=== PATIENT | female | born 1950 | race Caucasian/White ===

== ENCOUNTER 2018-01-03 20:45 | Inpatient (IN) ==
--- OUTSIDE RECORDS SUMMARY | 2018-01-03 21:04 | External Medical Summary ---
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
--- OUTSIDE RECORDS SUMMARY | 2018-01-03 21:04 | External Medical Summary ---
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 Problem Depressive F32.9 Active 97193058 disorder, not elsewhere classified Problem Essential I10 Active 12341795 hypertension, hypertension with unspecified goal ALLERGIES No Known Allergies SOCIAL HISTORY No smoking Hx information available PLAN OF CARE VITAL SIGNS MEDICATIONS Medication Instructions Dosage Frequency Start End Duration Status Date Date Naproxen 500 TAKE 1 30 Active TABLET BY MOUTH EVERY 12 HOURS Methotrexate 2.5 TAKE 6 35 Active TABLETS BY MOUTH EVERY WEEK ON THE SAME DAY Zoloft 50 MG Orally Once a 1/2 tabelt 24h 30 Active day x 6 days, then 1 tablet daily Pantoprazole as directed Active Sodium Hydrocodone-Acet Orally every 6 1 tablet as 6h Jan, as Active aminophen hrs needed 2015 needed 7.5-325 MG Lorazepam 1 MG ORAL Q 6 HRS 1 tablet Sep, as Active 2009 needed Gabapentin 600 TAKE 1 30 Active TABLET BY MOUTH THREE TIMES DAILY RESULTS No Results PROCEDURES No Known procedures IMMUNIZATIONS No Known Immunizations
--- OUTSIDE RECORDS SUMMARY | 2018-01-03 21:04 | External Medical Summary | Referral Summary ---
:1950 Author Organization [facility] Address [address] [place] [address] Care Team Providers Name Role Phone [place], Librado Humphrey Primary Care Physician Encounter VC Date(s): 11/07/16 - 11/10/16 [facility] [address] [place] [address] [place] Discharge Disposition: 62-Inpatient Rehab Facility Attending Physician: Claude Mott MD Admitting Physician: Claude Mott MD Vital Signs Most recent to oldest [Reference Range]: 1 Temperature Oral [35.8-37.3 degC] 36.7 degC (11/10/16 9:00 AM) Temperature Temporal Artery [36.3-37.8 degC] 36.5 degC (11/07/16 2:45 PM) Peripheral Pulse Rate [60-100 bpm] 90 bpm (11/10/16 9:00 AM) Heart Rate Monitored [60-100 bpm] 99 bpm (11/08/16 3:00 AM) Respiratory Rate [14-20 br/min] 16 br/min (11/10/16 9:00 AM) Blood Pressure [90-140/60-90 mmHg] 132/73 mmHg (11/10/16 9:00 AM) Mean Arterial Pressure, Cuff 114 mmHg (11/10/16 3:17 AM) SpO2 95 % (11/10/16 9:00 AM) Problem List Condition Effective Dates Status Health Status Informant Acute pain(Confirmed) Active At risk for activity Active intolerance(Confirmed)1 At risk of pressure sore(Confirmed) Active Impaired skin integrity(Confirmed)2 Active 1Problem added automatically by system based on initiation of At Risk for Activity Intolerance Plan of [id number] added automatically by system based on initiation of Impaired Skin Integrity Plan of Care Allergies, Adverse Reactions, Alerts Substance Reaction Severity Status clindamycin Eczema (rash) Active tetracycline Eczema (rash) Active Medications aspirin 81 mg oral tablet 81 mg 1 tabs, Oral, Daily Start Date: 11/07/16 Status: Orderedcalcium carbonate 500 mg (200 mg elemental calcium) oral tablet, chewable 1,000 mg 2 tabs, Chewed, Bedtime (once a day), as needed for dyspepsia, # 12 tabs, 0 Refill(s) Start Date: 11/07/16 Status: OrderedCentrum Ultra Women's oral tablet 1 tabs, Oral, Daily, 0 Refill(s) Start Date: 11/07/16 Status: Ordereddocusate sodium 100 mg oral capsule 100 mg 1 caps, Oral, BID, 0 Refill(s) Start Date: 11/10/16 Status: OrderedDULoxetine 30 mg oral delayed release capsule 30 mg 1 caps, Oral, Daily Start Date: 11/07/16 Status: Orderedgabapentin 600 mg, Oral, TID, 0 Refill(s) Start Date: 06/19/16 Status: OrderedMilk of Magnesia 2,400 mg 30 mL, Oral, Daily, Constipation, 0 Refill(s) Start Date: 11/10/16 Status: OrderedNorco 5 mg-325 mg oral tablet 1 tabs, Oral, q4hr, Pain Moderate (4-6), not to exceed 8 tablets/24 hours; give with food to preventnausea, # 30 tabs, 0 Refill(s) Start Date: 11/10/16 Stop Date: 12/11/16 Status: Orderedoxybutynin 5 mg oral tablet 5 mg 1 tabs, Oral, BID Start Date: 11/07/16 Status: Orderedpantoprazole 40 mg, Oral, Daily, 0 Refill(s) Start Date: 06/19/16 Status: Orderedsertraline 50 mg oral tablet 25 mg 0.5 tabs, Oral, Daily, 0 Refill(s) Start Date: 06/19/16 Status: OrderedXarelto 10 mg oral tablet 10 mg 1 tabs, Oral, Daily, give daily at 9:00 AM for 20 days post hospital discharge for DVT prevention, 0 Refill(s) Start Date: 5/30/17 Status: Ordered Results Hematology Most recent to oldest [Reference Range]: 1 WBC [4.8-10.8 10*3/uL] 12.1 10*3/uL *HI* (11/08/16 7:37 AM) RBC [4.00-5.20] 3.14 *LOW* (11/08/16 7:37 AM) Hgb [12.0-16.0 gm/dL] 9.7 gm/dL *LOW* (11/08/16 7:37 AM) Hct [37.0-47.0 %] 30.7 % *LOW* (11/08/16 7:37 AM) MCV [82.0-99.0 fL] 97.8 fL (11/08/16 7:37 AM) MCH [27.0-32.0 pg] 30.9 pg (11/08/16 7:37 AM) MCHC [32.0-36.0 gm/dL] 31.6 gm/dL *LOW* (11/08/16 7:37 AM) RDW [11.5-14.5 %] 16.5 % *HI* (11/08/16 7:37 AM) Platelet [150-400 10*3/uL] 202 10*3/uL (11/08/16 7:37 AM) MPV [9.4-12.4 fL] 9.8 fL (11/08/16 7:37 AM) Immature Granulocytes [0.0-1.0 %] 0.2 % (11/07/16 2:44 AM) Neutrophils [51-75 %] 81 % *HI* (11/07/16 2:44 AM) Lymphocytes [20-46 %] 11 % *LOW* (11/07/16 2:44 AM) Monocytes [4-11 %] 6 % (11/07/16 2:44 AM) Eosinophils [0-4 %] 2 % (11/07/16 2:44 AM) Basophils [0-2 %] 0 % (11/07/16 2:44 AM) Neutro Absolute [1.90-7.00] 8.03 *HI* (11/07/16 2:44 AM) Lymph Absolute [0.80-3.30] 1.10 (11/07/16 2:44 AM) Starke Absolute [0.30-1.00] 0.60 (11/07/16 2:44 AM) Eos Absolute [0.00-0.50] 0.18 (11/07/16 2:44 AM) Baso Absolute [0.00-0.20] 0.03 (11/07/16 2:44 AM) Nucleated RBC Automated [0 /100 WBC] 0.0 /100 WBC (11/07/16 2:44 AM) Coagulation Most recent to oldest [Reference Range]: 1 INR [0.9-1.2] 1.2 (11/07/16 2:44 AM) Chemistry Most recent to oldest [Reference Range]: 1 Sodium Lvl [136-144 mEq/L] 141 mEq/L (11/08/16 7:37 AM) Potassium Lvl [3.6-5.1 mEq/L] 4.2 mEq/L (11/08/16 7:37 AM) Chloride [99-109 mEq/L] 108 mEq/L (11/08/16 7:37 AM) CO2 [22-32 mEq/L] 25 mEq/L (11/08/16 7:37 AM) AGAP [3-20 mEq/L] 8 mEq/L (11/08/16 7:37 AM) BUN [4-20 mg/dL] 15 mg/dL (11/08/16 7:37 AM) Glucose Lvl [70-100 mg/dL] 165 mg/dL *HI* (11/08/16 7:37 AM) Creatinine Lvl [0.44-1.03 mg/dL] 0.89 mg/dL (11/08/16 7:37 AM) eGFR [>60 mL/min] >60 mL/min 1 (11/08/16 7:37 AM) Calcium Lvl [8.6-10.0 mg/dL] 8.5 mg/dL *LOW* (11/08/16 7:37 AM) Blood Glucose, Capillary [74-106 mg/dL] 107 mg/dL *HI* (11/07/16 11:18 AM) 1Result Comment: Multiply eGFR results by 1.21 for race.Urinalysis Most recent to oldest [Reference Range]: 1 UA Color Yellow (11/07/16 4:12 AM) UA Appear Sl Cloudy (11/07/16 4:12 AM) UA pH [5.0-8.0] 6.0 (11/07/16 4:12 AM) UA Leuk Est [Negative] Pos 1+ *ABN* (11/07/16 4:12 AM) UA Nitrite [Negative] Positive *ABN* (11/07/16 4:12 AM) UA Protein [Negative] Negative (11/07/16 4:12 AM) UA Glucose [Negative] Negative (11/07/16 4:12 AM) UA Ketones [Negative] Negative (11/07/16 4:12 AM) UA Urobilinogen [<1.0] Negative (11/07/16 4:12 AM) UA Bili [Negative] Negative (11/07/16 4:12 AM) UA Blood [Negative] Negative (11/07/16 4:12 AM) UA Spec Grav [1.003-1.030] 1.010 (11/07/16 4:12 AM) Type Clean Catch (11/07/16 4:12 AM) UA WBC [0-4] 20-50 *ABN* (11/07/16 4:12 AM) UA RBC [0-2] 0-2 (11/07/16 4:12 AM) Epithelial Cells None Seen (11/07/16 4:12 AM) UA Bacteria Occasional *ABN* (11/07/16 4:12 AM) UA Mucous Present (11/07/16 4:12 AM) Microbiology Reports TEST:Urine Culture STATUS:Auth (Verified) BODY SITE: SOURCE:Urine COLLECTED DATE/TIME:11/07/16 4:12 AMUrine Culture- - - - - - - Positive urine culture (even if >100,000 cfu/ml) without presence of symptoms does not require antibiotic treatment unless the patient is or undergoing urinary surgery. Please document as bacteriuria. Klebsiella oxytoca >100,000 cfu/ml ORGANISM:Klebsiella oxytoca Immunizations Given and Recorded Vaccine Date Status Refusal Reason influenza virus vaccine, live 04/29/13 Given Not Given Vaccine Date Status Refusal Reason influenza virus vaccine, inactivated 06/20/16 Not Given Patient Refuses Procedures Procedure Date Related Diagnosis Body Site Open Reduction Internal Fixation Tibia Proximal 11/07/16 (Left)1 1auto-populated from documented surgical case Social History Social History Type Response Smoking Status Former smoker Assessment and Plan No data available for this section
--- OUTSIDE RECORDS SUMMARY | 2018-01-03 21:04 | External Medical Summary | Referral Summary ---
:1950 Author Organization [facility] Address [address] [place] [address] Care Team Providers Name Role Phone Librado Baez Milagro Primary Care Physician Encounter VC Date(s): 11/25/16 - 11/25/16 [facility] [address], [place] [address] Discharge Disposition: 01-Home or Self Care Attending Physician: Roxanne Isaac DO Vital Signs No data available for this section Problem List Condition Effective Dates Status Health Status Informant Acute pain(Confirmed) Active At risk for activity Active intolerance(Confirmed)1 At risk of pressure sore(Confirmed) Active Impaired skin integrity(Confirmed)2 Active 1Problem added automatically by system based on initiation of At Risk for Activity Intolerance Plan of [id number] added automatically by system based on initiation [...] for DVT prevention, 0 Refill(s) Start Date: 11/10/16 Status: Ordered Results No data available for this section Immunizations Given and Recorded Vaccine Date Status [...]
--- OUTSIDE RECORDS SUMMARY | 2018-01-03 21:04 | External Medical Summary ---
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
--- OUTSIDE RECORDS SUMMARY | 2018-01-03 21:04 | External Medical Summary ---
:[address] 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
--- OUTSIDE RECORDS SUMMARY | 2018-01-03 21:04 | External Medical Summary | Referral Summary ---
:1950 Author Organization [facility] Address [address] [place] [address] Care Team Providers Name Role Phone [place], Librado Humphrey Primary Care Physician Encounter VC Date(s): 12/17/16 - 12/21/16 [facility] [address] [place] [address] [phone] Discharge Disposition: 01-Home or Self Care Attending Physician: Chip Decker MD Admitting Physician: Chip Decker MD Vital Signs Most recent to oldest [Reference Range]: 1 Temperature Axillary [35.2-36.7 degC] 36.5 degC (12/18/16 10:29 PM) Temperature Oral [35.8-37.3 degC] 37 degC (12/21/16 7:00 AM) Temperature Rectal [36.3-37.8 degC] 38.0 degC *HI* (12/17/16 9:10 AM) Peripheral Pulse Rate [60-100 bpm] 80 bpm (12/21/16 7:00 AM) Heart Rate Monitored [60-100 bpm] 83 bpm (12/20/16 3:00 PM) Respiratory Rate [14-20 br/min] 16 br/min (12/21/16 7:00 AM) Blood Pressure [90-140/60-90 mmHg] 137/75 mmHg (12/21/16 7:00 AM) Mean Arterial Pressure, Cuff 88 mmHg (12/18/16 8:57 AM) Mean Arterial Pressure, Invasive 2 123 mmHg (12/20/16 8:00 AM) SpO2 94 % (12/21/16 7:00 AM) Problem List Condition Effective Dates Status Health Status Informant Acute pain(Confirmed) Active At risk for activity Active intolerance(Confirmed)1 At risk for injury(Confirmed)2 Active At risk of pressure sore(Confirmed) Active Depression(Confirmed) Active patient GERD (gastroesophageal reflux Active patient disease)(Confirmed) Impaired skin integrity(Confirmed)3 Active Knowledge deficit(Confirmed)4 Active RA (rheumatoid arthritis)(Confirmed) Active patient Self -care deficit(Confirmed)5 Active 1Problem added automatically by system based on initiation of At Risk for Activity Intolerance Plan of [id number] added automatically by system based on initiation of Risk for Injury Plan of [id number] added automatically by system based on initiation of Impaired Skin Integrity Plan of [id number] added automatically by system based on initiation of Knowledge Deficit Plan of [id number] added automatically by system based on initiation of Self Care Deficit Plan of Care Allergies, Adverse Reactions, Alerts Substance Reaction Severity Status clindamycin Eczema (rash) Active tetracycline Eczema (rash) Active Medications aspirin 81 mg oral tablet 81 mg 1 tabs, Oral, qAM Start Date: 11/07/16 Status: Orderedcalcium carbonate 500 mg (200 mg elemental calcium) oral tablet, chewable 1,000 mg 2 tabs, Chewed, Bedtime (once a day), as needed for dyspepsia, # 12 tabs, 0 Refill(s) Start Date: 11/07/16 Status: Orderedcefpodoxime 100 mg oral tablet 100 mg 1 tabs, Oral, q12hr, X 14 days, # 28 tabs, 0 Refill(s), Pharmacy: [id number],1 tabs Oral q12hr,x14 days Start Date: 12/19/16 Stop Date: 01/02/17 Status: OrderedCentrum Ultra Women's oral tablet 1 tabs, Oral, Daily, 0 Refill(s) Start Date: 11/07/16 Status: Orderedcompleted med - cephalexin 500mg completed med - cephalexin 500mg, See Instructions, TID for 7 days beginning , 0 Refill(s) Start Date: 12/17/16 Status: OrderedDULoxetine 60 mg oral delayed release capsule 60 mg 1 caps, Oral, Daily, 0 Refill(s) Start Date: 12/17/16 Status: Orderedgabapentin 600 mg, Oral, TID, 0 Refill(s) Start Date: 06/19/16 Status: OrderedHYDROcodone-acetaminophen 7.5 mg-325 mg oral tablet range dose 1 tabs, Oral, q6hr, as needed for pain, 0 Refill(s) Start Date: 12/17/16 Status: Orderedlisinopril 10 mg oral tablet 10 mg 1 tabs, Oral, Daily, # 30 tabs, 0 Refill(s), Pharmacy: [facility] [id number], 1 tabs OralDaily Start Date: 12/21/16 Status: OrderedMilk of Magnesia 2,400 mg 30 mL, Oral, Daily, Constipation, 0 Refill(s) Start Date: 11/10/16 Status: OrderedOTC Osteo-Denx supplement OTC Osteo-Denx supplement, See Instructions, one by mouth daily, 0 Refill(s) Start Date: 12/17/16 Status: Orderedoxybutynin 5 mg oral tablet 5 mg 1 tabs, Oral, TID Start Date: 11/07/16 Status: Orderedpantoprazole 40 mg, Oral, Daily, 0 Refill(s) Start Date: 06/19/16 Status: OrderedProbiotic Formula 1 caps, Oral, Daily, 0 Refill(s) Start Date: 12/17/16 Status: Orderedsertraline 50 mg oral tablet 25 mg 0.5 tabs, Oral, Daily, 0 Refill(s) Start Date: 06/19/16 Status: Ordered Results Hematology Most recent to oldest [Reference Range]: 1 WBC [4.8-10.8 10*3/uL] 9.8 10*3/uL (12/18/16 5:34 AM) RBC [4.00-5.20] 3.50 *LOW* (12/18/16 5:34 AM) Hgb [12.0-16.0 gm/dL] 10.2 gm/dL *LOW* (12/18/16 5:34 AM) Hct [37.0-47.0 %] 32.5 % *LOW* (12/18/16 5:34 AM) MCV [82.0-99.0 fL] 92.9 fL (12/18/16 5:34 AM) MCH [27.0-32.0 pg] 29.1 pg (12/18/16 5:34 AM) MCHC [32.0-36.0 gm/dL] 31.4 gm/dL *LOW* (12/18/16 5:34 AM) RDW [11.5-14.5 %] 15.7 % *HI* (12/18/16 5:34 AM) Platelet [150-400 10*3/uL] 342 10*3/uL (12/18/16 5:34 AM) MPV [9.4-12.4 fL] 9.6 fL (12/18/16 5:34 AM) Immature Granulocytes [0.0-1.0 %] 0.3 % (12/18/16 5:34 AM) Neutrophils [51-75 %] 69 % (12/18/16 5:34 AM) Lymphocytes [20-46 %] 19 % *LOW* (12/18/16:34 AM) Monocytes [4-11 %] 11 % (12/18/16 5:34 AM) Eosinophils [0-4 %] 1 % (12/18/16:34 AM) Basophils [0-2 %] 0 % (12/18/16:34 AM) Neutro Absolute [1.90-7.00] 6.80 (12/18/16 5:34 AM) Lymph Absolute [0.80-3.30] 1.84 (12/18/16 5:34 AM) Crosby Absolute [0.30-1.00] 1.05 *HI* (12/18/16 5:34 AM) Eos Absolute [0.00-0.50] 0.09 (12/18/16 5:34 AM) Baso Absolute [0.00-0.20] 0.02 (12/18/16 5:34 AM) Nucleated RBC Automated [0 /100 WBC] 0.0 /100 WBC (12/18/16 5:34 AM) Coagulation Most recent to oldest [Reference Range]: 1 INR [0.9-1.2] 1.4 *HI* (12/17/16 8:56 AM) PTT [25.0-35.0 seconds] 29.5 seconds (12/17/16 8:56 AM) Chemistry Most recent to oldest [Reference Range]: 1 Sodium Lvl [136-144 mEq/L] 139 mEq/L (12/18/16 5:34 AM) Potassium Lvl [3.6-5.1 mEq/L] 3.1 mEq/L *LOW* (12/18/16 5:34 AM) Chloride [99-109 mEq/L] 108 mEq/L (12/18/16 5:34 AM) CO2 [22-32 mEq/L] 24 mEq/L (12/18/16 5:34 AM) AGAP [3-20 mEq/L] 7 mEq/L (12/18/16 5:34 AM) BUN [4-20 mg/dL] 10 mg/dL (12/18/16 5:34 AM) Glucose Lvl [70-100 mg/dL] 111 mg/dL *HI* (12/18/16 5:34 AM) Creatinine Lvl [0.44-1.03 mg/dL] 0.69 mg/dL (12/18/16 5:34 AM) eGFR [>60 mL/min] >60 mL/min 1 (12/18/16 5:34 AM) Calcium Lvl [8.6-10.0 mg/dL] 8.1 mg/dL *LOW* (12/18/16 5:34 AM) Albumin Lvl [3.5-4.8 gm/dL] 2.9 gm/dL *LOW* (12/17/16 8:56 AM) Total Protein [6.1-7.9 gm/dL] 8.0 gm/dL *HI* (12/17/16 8:56 AM) Globulin [1.9-4.3 gm/dL] 5.1 gm/dL *HI* (12/17/16 8:56 AM) ALT [14-54 U/L] 14 U/L (12/17/16 8:56 AM) AST [15-41 U/L] 25 U/L (12/17/16 8:56 AM) Alk Phos [26-104 U/L] 121 U/L *HI* (12/17/16 8:56 AM) Bili Total [0.2-1.2 mg/dL] 1.2 mg/dL 2 (12/17/16 8:56 AM) Magnesium Lvl [1.8-2.5 mg/dL] 2.1 mg/dL (12/17/16 8:56 AM) Troponin [<0.06 ng/mL] <0.05 ng/mL (12/17/16 8:56 AM) Sodium Venous [136-144 mEq/L] 138 mEq/L (12/17/16 8:50 AM) Potassium Venous [3.6-5.1 mEq/L] 3.3 mEq/L 3 *LOW* (12/17/16 8:50 AM) Calcium Ionized Venous [1.19-1.41 mmol/L] 1.15 mmol/L *LOW* (12/17/16 8:50 AM) Total CO2 Venous [25-29 mEq/L] 21 mEq/L *LOW* (12/17/16 8:50 AM) HGB Venous NPT [12.0-16.0 gm/dL] 12.6 gm/dL (12/17/16 8:50 AM) HCT Venous [37.0-47.0 %] 37.0 % (12/17/16 8:50 AM) Glucose Venous [70-100 mg/dL] 129 mg/dL *HI* (12/17/16 8:50 AM) BUN Venous [4-20] 15 (12/17/16 8:50 AM) Creatinine Venous [0.4-1.0 mg/dL] 0.8 mg/dL (12/17/16 8:50 AM) Venous CL [99-109 mEq/L] 101 mEq/L (12/17/16 8:50 AM) Anion Gap, Jet [3-20 mEq/L] 16 mEq/L (12/17/16 8:50 AM) Lactic Acid-POC [0.5-2.2 mEq/L] 1.1 mEq/L (12/17/16 8:52 AM) 1Result Comment: Multiply eGFR results by 1.21 for race.2Result Comment: Naproxen, specifically the metabolite O-desmethylnaproxen, may cause spurious elevation in Total Bilirubin levels.3Result Comment: This test was performed on a whole blood specimen. The presence or absence of hemolysis cannot be assessed. Hemolysis can falsely elevate potassium levels. Normals are for venous specimens only.Urinalysis Most recent to oldest [Reference Range]: 1 UA Color Yellow (12/17/16 9:14 AM) UA Appear Cloudy *ABN* (12/17/16 9:14 AM) UA pH [5.0-8.0] 6.0 (12/17/16 9:14 AM) UA Leuk Est [Negative] Pos 3+ *ABN* (12/17/16 9:14 AM) UA Nitrite [Negative] Positive *ABN* (12/17/16 9:14 AM) UA Protein [Negative] Pos 1+ *ABN* (12/17/16 9:14 AM) UA Glucose [Negative] Negative (12/17/16 9:14 AM) UA Ketones [Negative] Trace *ABN* (12/17/16 9:14 AM) UA Urobilinogen [<1.0] Negative (12/17/16 9:14 AM) UA Bili [Negative] Negative (12/17/16 9:14 AM) UA Blood [Negative] Negative (12/17/16 9:14 AM) UA Spec Grav [1.003-1.030] 1.015 (12/17/16 9:14 AM) Type Clean Catch (12/17/16 9:14 AM) UA WBC [0-4 /HPF] >50 /HPF *ABN* (12/17/16 9:14 AM) Epithelial Cells 2-5 1 (12/17/16 9:14 AM) UA Bacteria Numerous *ABN* (12/17/16 9:14 AM) UA Mucous Present (12/17/16 9:14 AM) 1Result Comment: Heavy cellular interference.Microbiology Reports TEST:Urine Culture STATUS:Auth (Verified) BODY SITE: SOURCE:Urine COLLECTED DATE/TIME:12/17/16 9:14 AMUrine Culture- - - - - - - Positive urine culture (even if >100,000 cfu/ml) without presence of symptoms does not require antibiotic treatment unless the patient is or undergoing urinary surgery. Please document as bacteriuria. Klebsiella oxytoca >100,000 cfu/ml ORGANISM:Klebsiella oxytocaTEST:Blood Culture STATUS:Order in Progress BODY SITE: SOURCE:Blood COLLECTED DATE/TIME:12/17/16 9:02 AMBlood CultureNo growth after 12 hours incubation. Nursing unit/client will be called if growth is detected. -TEST:Blood Culture STATUS:Order in Progress BODY SITE: SOURCE:Blood COLLECTED DATE/TIME:12/17/16 8:56 AMBlood CultureNo growth after 12 hours incubation. Nursing unit/client will be called if growth is detected. - Immunizations Given and Recorded Vaccine Date Status Refusal Reason influenza virus vaccine, live 04/29/13 Given Not Given Vaccine Date Status Refusal Reason influenza virus vaccine, inactivated 06/20/16 Not Given Patient Refuses Procedures Procedure Date Related Diagnosis Body Site Insertion of non-indwelling bladder catheter (eg, 12/17/16 straight catheterization for residual urine) Open Reduction Internal Fixation Tibia Proximal 11/07/16 (Left)1 1auto-populated from documented surgical case Social History Social History Type Response Smoking Status Former smoker Assessment and Plan No data available for this section
[2018-01-03] MEDS ORDERED: METOCLOPRAMIDE 10mg/2ml INJECTION IVP ONE (21:05)
[2018-01-03] MEDS ORDERED: MORPHINE SULFATE 2mg INJECTION IVP ONE ×2 (21:05→22:08)
--- OUTSIDE RECORDS SUMMARY | 2018-01-03 21:05 | External Medical Summary ---
:1950 Author Organization [facility] Address [address] [place] [address] Care Team Providers Name Role Phone Librado Baez Unavailable Unavailable PROBLEMS Type Condition ICD9-CM Code SSQ49-DY Code Onset Condition SNOMED Code Dates Status Problem Essential I10 Active 21847860 hypertension, hypertension with unspecified goal Problem Age-related M80.00XG Active 061479826 osteoporosis with current pathological fracture with delayed healing, subsequent encounter Problem Urge incontinence N39.41 Active 54359340 of urine Problem Rheumatoid M05.771 Active 823545688 arthritis with rheumatoid factor of right ankle and foot without organ or systems involvement Problem Depressive F32.9 Active 09714427 disorder, not elsewhere classified Problem 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
--- OUTSIDE RECORDS SUMMARY | 2018-01-03 21:05 | External Medical Summary ---
:1950 Author Organization [facility] Address [address] [place] [address] Care Team Providers Name Role Phone Librado Baez Unavailable Unavailable PROBLEMS Type Condition ICD9-CM Code ELM68-WE Code Onset Condition SNOMED Code Dates Status Problem Essential I10 Active 10471340 hypertension, hypertension with unspecified goal Problem Age-related M80.00XG Active 280920105 osteoporosis with current pathological fracture with delayed healing, subsequent encounter Problem Urge incontinence N39.41 Active 11151295 of urine Problem Rheumatoid M05.771 Active 277243250 arthritis with rheumatoid factor of right ankle and foot without organ or systems involvement Problem Depressive F32.9 Active 16938814 disorder, not elsewhere classified Problem 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 494320889 transient cerebral ischemias Problem Bilateral ankle M25.571 Active 940479222 pain ALLERGIES No Information SOCIAL HISTORY Never Assessed PLAN OF CARE VITAL SIGNS MEDICATIONS Unknown Medications RESULTS No Results PROCEDURES No Known procedures IMMUNIZATIONS No Known Immunizations MEDICAL (GENERAL) HISTORY Type Description Date Medical History Rheumatoid arthritis Medical History Depressive disorder, not elsewhere classified Medical History Hypertension, Unspecified Medical History Pneumovax in 2012 Surgical History harware removal--right leg removal 2012 Surgical History right hand surgery 2012 Surgical History tubal Surgical History colonoscopy, [facility] 2005 Results were normal Surgical History Dr Castano EGD bx for clotest, antral bx, colonoscopy--normal Hospitalization History [facility] , UTI 12/2016
--- OUTSIDE RECORDS SUMMARY | 2018-01-03 21:05 | External Medical Summary ---
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 Problem Age-related M80.00XG Active 043717959 osteoporosis with current pathological fracture with delayed healing, subsequent encounter Problem Bilateral ankle pain M25.571 Active 462293666 Problem Rheumatoid arthritis M05.771 Active 182205889 with rheumatoid factor of right ankle and foot without organ or systems involvement Problem Urge incontinence of N39.41 Active 26586283 urine Problem 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
--- OUTSIDE RECORDS SUMMARY | 2018-01-03 21:05 | External Medical Summary ---
:1950 Author Organization [facility] Address [address] [place] [address] Care Team Providers Name Role Phone Librado Baez Unavailable Unavailable PROBLEMS Type Condition ICD9-CM Code PMN49-BQ Code Onset Condition SNOMED Code Dates Status Problem Essential I10 Active 57739219 hypertension, hypertension with unspecified goal Problem Age-related M80.00XG Active 519487882 osteoporosis with current pathological fracture with delayed healing, subsequent encounter Problem Urge incontinence N39.41 Active 36529670 of urine Problem Rheumatoid M05.771 Active 813818049 arthritis with rheumatoid factor of right ankle and foot without organ or systems involvement Problem Depressive F32.9 Active 39825390 disorder, not elsewhere classified Problem 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
--- OUTSIDE RECORDS SUMMARY | 2018-01-03 21:05 | External Medical Summary ---
:1950 Author Organization [facility] Address [address] [place] [address] Care Team Providers Name Role Phone Librado Baez Unavailable Unavailable PROBLEMS Type Condition ICD9-CM Code PEV83-FE Code Onset Condition SNOMED Code Dates Status Problem Essential I10 Active 93902693 hypertension, hypertension with unspecified goal Problem Age-related M80.00XG Active 682019788 osteoporosis with current pathological fracture with delayed healing, subsequent encounter Problem Urge incontinence N39.41 Active 75752357 of urine Problem Rheumatoid M05.771 Active 575063280 arthritis with rheumatoid factor of right ankle and foot without organ or systems involvement Problem Depressive F32.9 Active 04215861 disorder, not elsewhere classified Problem 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
--- OUTSIDE RECORDS SUMMARY | 2018-01-03 21:05 | External Medical Summary ---
:1950 Author Organization [facility] Address [address] [place] [address] Care Team Providers Name Role Phone Librado Baez Unavailable Unavailable PROBLEMS Type Condition ICD9-CM Code ROG78-JM Code Onset Condition SNOMED Code Dates Status Problem Essential I10 Active 05376292 hypertension, hypertension with unspecified goal Problem Age-related M80.00XG Active 028131276 osteoporosis with current pathological fracture with delayed healing, subsequent encounter Problem Urge incontinence N39.41 Active 78250747 of urine Problem Rheumatoid M05.771 Active 460917220 arthritis with rheumatoid factor of right ankle and foot without organ or systems involvement Problem Depressive F32.9 Active 75521590 disorder, not elsewhere classified Problem 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
--- OUTSIDE RECORDS SUMMARY | 2018-01-03 21:05 | External Medical Summary ---
:1950 Author Organization [facility] Address [address] [place] [address] Care Team Providers Name Role Phone Librado Baez Unavailable Unavailable PROBLEMS Type Condition ICD9-CM Code ORH93-IC Code Onset Condition SNOMED Code Dates Status Problem Essential I10 Active 42536601 hypertension, hypertension with unspecified goal Problem Age-related M80.00XG Active 971520493 osteoporosis with current pathological fracture with delayed healing, subsequent encounter Problem Urge incontinence N39.41 Active 51739509 of urine Problem Rheumatoid M05.771 Active 909868833 arthritis with rheumatoid factor of right ankle and foot without organ or systems involvement Problem Depressive F32.9 Active 03224205 disorder, not elsewhere classified Problem 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
--- OUTSIDE RECORDS SUMMARY | 2018-01-03 21:05 | External Medical Summary ---
:1950 Author Organization [facility] Address [address] [place] [address] Care Team Providers Name Role Phone Librado Baez Unavailable Unavailable PROBLEMS Type Condition ICD9-CM Code SPH61-AN Code Onset Condition SNOMED Code Dates Status Problem Essential I10 Active 15528904 hypertension, hypertension with unspecified goal Problem Age-related M80.00XG Active 429506420 osteoporosis with current pathological fracture with delayed healing, subsequent encounter Problem Urge incontinence N39.41 Active 04414870 of urine Problem Rheumatoid M05.771 Active 765242163 arthritis with rheumatoid factor of right ankle and foot without organ or systems involvement Problem Depressive F32.9 Active 28794289 disorder, not elsewhere classified Problem 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
--- OUTSIDE RECORDS SUMMARY | 2018-01-03 21:05 | External Medical Summary ---
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 453886709 transient cerebral ischemias Problem Depressive F32.9 Active 90472684 disorder, not elsewhere classified Problem Essential I10 Active 27123804 hypertension, hypertension with unspecified goal Problem Bilateral ankle M25.571 Active 606126631 pain Problem Rheumatoid M05.771 Active 257192972 arthritis with rheumatoid factor of right ankle and foot without organ or systems involvement ALLERGIES Unknown Allergies SOCIAL HISTORY No smoking Hx information available PLAN OF CARE VITAL SIGNS MEDICATIONS Medication Instructions Dosage Frequency Start Date End Date Duration Status Bactrim DS Orally Twice a 1 tablet 12h 09 Aug, 7 days Active 800-160 MG day 2016 RESULTS No Results PROCEDURES No Known procedures IMMUNIZATIONS No Known Immunizations
--- OUTSIDE RECORDS SUMMARY | 2018-01-03 21:05 | External Medical Summary ---
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 764801863 transient cerebral ischemias Problem Depressive F32.9 Active 65230339 disorder, not elsewhere classified Problem Essential I10 Active 10963549 hypertension, hypertension with unspecified goal Problem Bilateral ankle M25.571 Active 865820169 pain Problem Rheumatoid M05.771 Active 706629937 arthritis with rheumatoid factor of right ankle and foot without organ or systems involvement ALLERGIES Unknown Allergies SOCIAL HISTORY No smoking Hx information available PLAN OF CARE VITAL SIGNS MEDICATIONS Medication Instructions Dosage Frequency Start End Date Duration Status Date Duloxetine HCl Orally Once a day 1 CAPSULE 24h 30 days Active 60 MG RESULTS No Results PROCEDURES No Known procedures IMMUNIZATIONS No Known Immunizations
--- OUTSIDE RECORDS SUMMARY | 2018-01-03 21:05 | External Medical Summary ---
:1950 Author Organization [facility] Address [address] [place] [address] Care Team Providers Name Role Phone Librado Baez Unavailable Unavailable PROBLEMS Type Condition ICD9-CM Code ASK85-OB Code Onset Condition SNOMED Code Dates Status Problem Essential I10 Active 12214799 hypertension, hypertension with unspecified goal Problem Age-related M80.00XG Active 449236549 osteoporosis with current pathological fracture with delayed healing, subsequent encounter Problem Urge incontinence N39.41 Active 60327275 of urine Problem Rheumatoid M05.771 Active 773604376 arthritis with rheumatoid factor of right ankle and foot without organ or systems involvement Problem Depressive F32.9 Active 18856797 disorder, not elsewhere classified Problem 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
--- OUTSIDE RECORDS SUMMARY | 2018-01-03 21:05 | External Medical Summary ---
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 134312854 artery syndrome Problem Age-related M80.00XG Active 647546663 osteoporosis with current pathological fracture with delayed healing, subsequent encounter Problem Bilateral ankle pain M25.571 Active 435823186 Problem Rheumatoid arthritis M05.771 Active 949344857 with rheumatoid factor of right ankle and foot without organ or systems involvement Problem Urge incontinence of N39.41 Active 95581149 urine Problem 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 650761965 transient cerebral ischemias ALLERGIES Substance Reaction Event Type Date Status Tetracycline Unknown Drug Allergy May, Active SOCIAL HISTORY Never Assessed PLAN OF CARE Activity Details Follow Up prn Reason: VITAL SIGNS Height 67.5 in 2017-06-08 Temperature 98.1 degrees Fahrenheit 2017-06-08 Heart Rate 85 /min 2017-06-08 Oximetry 96 % 2017-06-08 Blood pressure systolic 140 mm Hg 2017-06-08 Blood pressure diastolic 76 mm Hg 2017-06-08 MEDICATIONS Medication Instructions Dosage Frequency Start End Duration Status Date Date Lisinopril 10 MG 1 TABS ORAL Active DAILY Forteo 750 Subcutaneous 0.08 ml 24h Active MCG/3ML Once a day Cefuroxime Orally Twice a 1 tablet 12h May, 10 day(s) Active Axetil 250 MG day 2016 Methotrexate 2.5 Orally 6 tabs as directed Jan, Active MG once a week on 2016 the same day of the wk Macrobid 100 MG Orally every 12 1 capsule 12h Feb, 10 days Active hrs with food 2016 Oxybutynin TAKE 1 30 Active Chloride 5 TABLET BY MOUTH THREE TIMES DAILY Gabapentin 300 Orally TID 1 tablet 8h 30 days Active MG Oxybutynin Orally Twice a 1 tablet 12h 07 Aug, day(s) Active Chloride 5 mg day 2016 Pantoprazole as directed as TAKE 1 30 Active Sodium 40 directed TABLET BY MOUTH DAILY Venlafaxine HCl Orally Once a 1 capsule 24h 30 Active ER 75 mg day with food Naproxen 500 TAKE 1 30 Active TABLET BY MOUTH EVERY 12 HOURS Macrobid 100 MG Orally every 12 1 capsule 12h Jan, day(s) Active hrs with food 2016 Venlafaxine HCl Orally Once a 1 capsule 24h Apr, day(s) Active ER 75 mg day with food 2016 RESULTS Name Result Date Reference Range Urine Dipstick/Microscopic for Symptoms 2017-06-08 COLOR P.YEL YELLOW-STRAW CLARITY S.CLD CLEAR LEUKOCYTES + NEGATIVE NITRITES NEG NEGATIVE pH 7 5-8 PROTEIN NEG NEGATIVE GLUCOSE NORM NEG KETONES NEG NEGATIVE UROBILINOGEN NORM 0 - 1.0 BILIRUBIN NEG NEGATIVE BLOOD NEG NEGATIVE SPEC GRAVITY 1.013 1.016-1.022 WBC 15-18 W/CLUMPING 0-5/HPF RBC 0-2 0-2/HPF GERRY-TRANS EPITH OCCASIONAL NONE/HPF SQUAMOUS EPITH FEW FEW/HPF BACTERIA 1+ NONE/HPF CRYSTALS 0 NONE/HPF MUCOUS 0 NONE/HPF OTHER CASTS 0 NONE/LPF Urine Culture #[id number] PROCEDURES Procedure Date Ordered Result Body Site URINALYSIS Jun 08, 2017 URINE CULTURE Jun 08, 2017 IMMUNIZATIONS No Known Immunizations MEDICAL (GENERAL) [...] bx, colonoscopy--normal Hospitalization History [facility] , [facility] 12/2016
--- OUTSIDE RECORDS SUMMARY | 2018-01-03 21:05 | External Medical Summary ---
:1950 Author Organization [facility] Address [address] [place] [address] Care Team Providers Name Role Phone Librado Baez Unavailable Unavailable PROBLEMS Type Condition ICD9-CM Code PMN36-NS Code Onset Condition SNOMED Code Dates Status Problem Essential I10 Active 06616504 hypertension, hypertension with unspecified goal Problem Age-related M80.00XG Active 077501325 osteoporosis with current pathological fracture with delayed healing, subsequent encounter Problem Urge incontinence N39.41 Active 04037659 of urine Problem Rheumatoid M05.771 Active 871331306 arthritis with rheumatoid factor of right ankle and foot without organ or systems involvement Problem Depressive F32.9 Active 63835754 disorder, not elsewhere classified Problem 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
--- OUTSIDE RECORDS SUMMARY | 2018-01-03 21:05 | External Medical Summary ---
:1950 Author Organization [facility] Address [address] [place] [address] Care Team Providers Name Role Phone Librado Baez Unavailable Unavailable PROBLEMS Type Condition ICD9-CM Code LFJ20-DJ Code Onset Condition SNOMED Code Dates Status Problem Essential I10 Active 75277466 hypertension, hypertension with unspecified goal Problem Age-related M80.00XG Active 424409945 osteoporosis with current pathological fracture with delayed healing, subsequent encounter Problem Urge incontinence N39.41 Active 30347423 of urine Problem Rheumatoid M05.771 Active 275229945 arthritis with rheumatoid factor of right ankle and foot without organ or systems involvement Problem Depressive F32.9 Active 95807852 disorder, not elsewhere classified Problem 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
--- OUTSIDE RECORDS SUMMARY | 2018-01-03 21:05 | External Medical Summary ---
:[address] 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 408874091 transient cerebral ischemias Problem Depressive F32.9 Active 74768368 disorder, not elsewhere classified Problem Essential I10 Active 81943468 hypertension, hypertension with unspecified goal Problem Bilateral ankle M25.571 Active 700070703 pain Problem Rheumatoid M05.771 Active 765145658 arthritis with rheumatoid factor of right ankle and foot without organ or systems involvement ALLERGIES Substance Reaction Event Type Date Status Tetracycline Unknown Drug Allergy Sep, Active SOCIAL HISTORY No smoking Hx information available PLAN OF CARE Activity Details Follow Up prn Reason: VITAL SIGNS Weight 161.2 lbs 2016-10-05 Height 67.5 in 2016-10-05 Temperature 98.4 degrees Fahrenheit 2016-10-05 Heart Rate 76 /min 2016-10-05 Oximetry 97 % 2016-10-05 BMI 24.87 kg/m2 2016-10-05 Blood pressure systolic 128 mm Hg 2016-10-05 Blood pressure diastolic 68 mm Hg 2016-10-05 MEDICATIONS Medication Instructions Dosage Frequency Start End Duration Status Date Date Hydrocodone-Acet Orally every 6 1 tablet as 6h Jan, days Active aminophen hrs needed 2015 7.5-325 MG Oxybutynin Orally Twice a 1 tablet 12h Aug, day(s) Active Chloride 5 mg day 2016 Lorazepam 1 MG ORAL Q 6 HRS 1 tablet Sep, as Active 2009 needed Cefuroxime Orally Twice a 1 tablet 12h 24 Sep, day(s) Active Axetil 250 MG day 2016 Pantoprazole as directed Active Sodium Zoloft 50 MG Orally Once a 1/2 tabelt 24h 30 Active day x 6 days, then 1 tablet daily Gabapentin 600 TAKE 1 30 Active TABLET BY MOUTH THREE TIMES DAILY Methotrexate 2.5 TAKE 6 35 Active TABLETS BY MOUTH EVERY WEEK ON THE SAME DAY Naproxen 500 TAKE 1 30 Active TABLET BY MOUTH EVERY 12 HOURS Duloxetine HCl Orally Once a 1 capsule 24h Sep, day(s) Active 30 MG day 2016 RESULTS No Results PROCEDURES Procedure Date Ordered Related Diagnosis Body Site OFFICE VISITEST PT October 05, 2016 IMMUNIZATIONS No Known Immunizations
--- OUTSIDE RECORDS SUMMARY | 2018-01-03 21:05 | External Medical Summary ---
:1950 Author Organization [facility] Address [address] [place] [address] Care Team Providers Name Role Phone Librado Baez Unavailable Unavailable PROBLEMS Type Condition ICD9-CM Code FVZ63-CU Code Onset Condition SNOMED Code Dates Status Problem Essential I10 Active 04189604 hypertension, hypertension with unspecified goal Problem Age-related M80.00XG Active 663522151 osteoporosis with current pathological fracture with delayed healing, subsequent encounter Problem Urge incontinence N39.41 Active 55676942 of urine Problem Rheumatoid M05.771 Active 587509114 arthritis with rheumatoid factor of right ankle and foot without organ or systems involvement Problem Depressive F32.9 Active 70900757 disorder, not elsewhere classified Problem 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 268132865 transient cerebral ischemias Problem Bilateral ankle M25.571 Active 493343421 pain ALLERGIES No Information SOCIAL HISTORY Never Assessed PLAN OF CARE Activity Details Follow Up prn Reason: VITAL SIGNS MEDICATIONS Unknown Medications RESULTS Name Result Date Reference Range Urine Dipstick/Microscopic for Symptoms 2017-03-02 COLOR P.YEL YELLOW-STRAW CLARITY CLEAR CLEAR LEUKOCYTES NEG NEGATIVE NITRITES NEG NEGATIVE pH 5 5-8 PROTEIN NEG NEGATIVE GLUCOSE NORM NEG KETONES NEG NEGATIVE UROBILINOGEN NORM 0 - 1.0 BILIRUBIN NEG NEGATIVE BLOOD NEG NEGATIVE SPEC GRAVITY 1.005 1.016-1.022 WBC 0-2 0-5/HPF RBC 0 0-2/HPF SQUAMOUS EPITH OCCASIONAL FEW/HPF BACTERIA 0 NONE/HPF CRYSTALS 0 NONE/HPF MUCOUS 0 NONE/HPF OTHER CASTS 0 NONE/LPF Urine Culture #[id number] PROCEDURES Procedure Date Ordered Result Body Site URINE CULTURE Mar 02, 2017 URINALYSIS Mar 02, 2017 IMMUNIZATIONS No Known Immunizations MEDICAL (GENERAL) [...] for clotest, antral bx, colonoscopy--normal Hospitalization History [facility] 12/2016
--- OUTSIDE RECORDS SUMMARY | 2018-01-03 21:05 | External Medical Summary ---
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 671449787 transient cerebral ischemias Problem Depressive F32.9 Active 01246682 disorder, not elsewhere classified Problem Essential I10 Active 26549219 hypertension, hypertension with unspecified goal Problem Bilateral ankle M25.571 Active 529006904 pain Problem 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
--- OUTSIDE RECORDS SUMMARY | 2018-01-03 21:05 | External Medical Summary ---
:[address] 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 821073553 transient cerebral ischemias Problem Depressive F32.9 Active 98514284 disorder, not elsewhere classified Problem Essential I10 Active 92357193 hypertension, hypertension with unspecified goal Problem Bilateral ankle M25.571 Active 334866549 pain Problem Rheumatoid M05.771 Active 739441153 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
--- NOTE | 2018-01-03 22:35 | Emergency Department Report ---
Fall HPI - General Chief Complaint: Fall <OctoberJustin 01/04/18 00:11> Stated Complaint: fall,hip pain <01/04/18 00:11> Source: patient <Jena Edwards 01/03/18 22:44> Mode of arrival: EMS <Jena Edwards 01/03/18 22:44> Limitations: no limitations <Jena Edwards 01/03/18 22:44> - History of Present Illness HPI Narrative: Pt was walking her dog when she dropped the leash and then tripped on in it landing on her right side. Pt complains of right hip pain. She is currently nauseated but believes that is from the Fentanyl she received per EMS. Pt denies being dizzy or light headed prior to fall. She denies head,neck or back pain. <Jena Edwards Deo Ana Lilia 01/03/18 22:44> MD complaint: fall <GraceJena Deo Sung 01/03/18 22:44> Onset (ago): minute(s) <DarrellJena perales Deo Ana Lilia 01/03/18 22:44> Fall from: standing <Jena Edwards Deo Sung 01/03/18 22:44> Loss of consciousness: none <Jena Edwards 01/03/18 22:44> Prolonged down time: no <Jena Edwards 01/03/18 22:44> Symptoms prior to fall: none <Jena Edwards Ana Lilia 01/03/18 22:44> Context: tripped/slipped <Jena Edwards 01/03/18 22:44> Location of injury: other (hip) <Jena Edwards 01/03/18 22:44> Severity: moderate <Jena Edwards 01/03/18 22:44> Severity scale (1-10): 7 <Jena Edwards 01/03/18 22:44> Associated symptoms (after fall): denies <Jena Edwards 01/03/18 22:44> - Related Data Home Medications Medication Instructions Recorded Confirmed Ascorbic Acid [Vitamin C] 500 mg PO DAILY 01/03/18 01/03/18 Calcium Carbonate [Calcium] 500 mg PO DAILY 01/03/18 01/03/18 Cranberry 500 mg PO DAILY 01/03/18 01/03/18 Duloxetine [Cymbalta] 60 mg PO DAILY 01/03/18 01/03/18 Folic Acid [Folate] 1 mg PO DAILY 01/03/18 01/03/18 Gabapentin 300 mg PO TID 01/03/18 01/03/18 Methotrexate Inj [Methotrexate] 0.8 mg SQ Q7D 01/03/18 01/03/18 Multivitamin [One Daily] 1 each PO DAILY 01/03/18 01/03/18 Naproxen 500 mg PO BID 01/03/18 01/03/18 Oxybutynin Chloride 5 mg PO BID 01/03/18 01/03/18 Pantoprazole Tab [Protonix Tab] 40 mg PO ACB 01/03/18 01/03/18 Sulfamethox/Tmp [Bactrim Ds] 1 tab PO BID 01/03/18 01/03/18 Teriparatide [Forteo] 1 dose SQ DAILY 01/03/18 01/03/18 [facility] Allergies Allergy/AdvReac Type Severity Reaction Status Date / Time clindamycin Allergy Unknown Verified 01/03/18 21:00 tetracycline Allergy Unknown Verified 01/03/18 21:00 hydrocodone AdvReac Unknown Confusion Verified 01/03/18 21:00 [facility]11> Review of Systems All systems: reviewed and negative except as stated <Jena Edwards 22:44> Constitutional: Reports: as per HPI <Jena Edwards 01/03/18 22:44> Musculoskeletal: Reports: as per HPI <Jena Edwards 01/03/18 22:44> Neurological: Reports: as per HPI <Jena Edwards 01/03/18 22:44> [facility] Patient Stated Medical History Cataracts Yes: Removed 1 year ago Other Reproductive Yes: Tubal <[facility] 01/04[facility]:11> - Social History Smoking status: Former smoker <Jena Edwards 01/03/18 22:44> Physical Exam - Limitations Limitations: no limitations <Jena Edwards 01/03/18 22:44> - General General appearance: alert, in distress <Jena Edwards 01/03/18 22:44> - Normal Exams: Head:: Normocephalic without trauma <Jena Edwards 01/03/18 22:44> Eyes:: Pupils are PERRLA w/ EOMI <Jena Edwards 01/03/18 22:44> Neck:: Full range of motion <Jena Edwards 01/03/18 22:44> Chest/Respirations:: Clear all luna, with good airflow, and symmetry bilaterally <Jena Edwards 01/03/18 22:44> Cardiovascular:: Regular rate and rhythm, without murmur or gallop, Pulses 2+ all extremities, capillary refill, <2 seconds all extremities <Jena Edwards 01/03/18 22:44> Integumentary:: No rashes, hives, or bruising noted <Jena Edwards 22:44> Neurological:: Patient is alert, and oriented, cranial nerves, motor/sensory/ cerebellar, exams w/o gross deficits, to observation <Jena Edwards 22:44> Psychiatric:: Patient exhibits, appropriate attention, emotion and affect < Jena Edwards 01/03/18 22:44> - Expanded Lower Extremity Exam right Hip/Pelvis exam: Present: normal inspection, tenderness, external rotation, shortening. Absent: swelling, abrasion <Jena Edwards 01/03/18 22:44> Course Vital Signs Temperature 98.6 F 01/03/18 20:49 Pulse Rate 114 H 01/03/18 20:49 Respiratory Rate 20 01/03/18 20:49 Blood Pressure 132/98 H 01/03/18 20:49 Pulse Oximetry 95 01/03/18 20:49 Temperature 98.6 F 01/03/18 20:49 Pulse Rate 94 01/03/18 22:47 Respiratory Rate 18 01/03/18 22:47 Blood Pressure 157/75 H 01/03/18 22:47 Pulse Oximetry 91 01/03/18 22:47 <01/04/18 00:11> Fall - MDM Narrative Medical decision making narrative: X ray reviewed and findings discussed with pt who wishes to be transferred to [facility]. PT states she has most of her medical care performed there and that is where she feels most comfortable. Pt provided pain control and antiemetic. [facility] called for transfer. Dr Andrews agrees to accept. Pt voices understanding of findings and plan Upon EMS arrival pt decided she prefers to stay at [facility] for procedure 2/2 to expense of going to [facility]. Dr Lopez notified and would like pt to be admitted to hospitalist Hospitalist will accept Pre op labs and diagnostics ordered. [facility] notified pt will not be transferring <Jena Edwards 01/03/18 23:38> - Differential Diagnosis Likely: compression fracture (pelvic fracture, hip fracture), concussion with loss of consciousness <Jena Edwards [facility] 01/03/18 22:44> - Lab Data Result diagrams: 01/03/18 23:53 01/03/18 23:53 <[facility] 01/04/18 00:11> - Radiology Data Attestation: I reviewed the patient's radiology results. < 00:11> I reviewed the patient's radiology results. (minimmal displace, angulated Right femoral neck fracture.) <Jena Edwards 01/03/18 22:44> CXR: No acute CT pathology. <01/04/18 00:11> - EKG Data EKG #1 EKG attestation: Yes: I reviewed and interpreted this EKG. < 00:11> EKG shows normal: sinus rhythm, axis, intervals, QRS complexes <01/04/18 00:11> Rate: normal <01/04/18 00:11> Interpretation: nonspecific ST-T wave changes <01/04/18 00:11> Disposition Clinical Impression: Displaced fracture of right femoral neck <01/04/18 00:11> Disposition: 02 To [facility] Acute Care <01/04/18 00:11> Condition: Improved <01/04/18 00:11> Instructions: <01/04/18 00:11> Prescriptions: No Action Gabapentin 300 mg PO TID Duloxetine [Cymbalta] 60 mg PO DAILY Cranberry 500 mg PO DAILY Ascorbic Acid [Vitamin C] 500 mg PO DAILY Multivitamin [One Daily] 1 each PO DAILY Calcium Carbonate [Calcium] 500 mg PO DAILY Pantoprazole Tab [Protonix Tab] 40 mg PO ACB Naproxen 500 mg PO BID Methotrexate Inj [Methotrexate] 0.8 mg SQ Q7D Folic Acid [Folate] 1 mg PO DAILY Sulfamethox/Tmp [Bactrim Ds] 1 tab PO BID Oxybutynin Chloride 5 mg PO BID Teriparatide [Forteo] 1 dose SQ DAILY <01/04/18 00:11> Referrals: Librado Baez [Primary Care Provider] - <01/04/18 00: 11> Forms: <01/04/18 00:11> Time of Disposition: 23:38 <Jena Edwards - 01/03/18 23:38> - Seen By: midlevel <Jena Edwards - 01/03/18 22:44>
--- OUTSIDE RECORDS SUMMARY | 2018-01-03 23:43 | External Medical Summary ---
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 without organ or systems involvement Problem Depressive F32.9 Active 69928452 disorder, not elsewhere classified Problem 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
--- OUTSIDE RECORDS SUMMARY | 2018-01-03 23:43 | External Medical Summary ---
:[address] 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 without organ or systems involvement Problem Depressive F32.9 Active 50770990 disorder, not elsewhere classified Problem 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 694785093 transient cerebral ischemias Problem Bilateral ankle M25.571 Active 044741803 pain ALLERGIES Substance Reaction Event Type Date Status Tetracycline Unknown Drug Allergy Dec, Active SOCIAL HISTORY No smoking Hx information available PLAN OF CARE Activity Details Follow Up prn Reason: VITAL SIGNS Height 67.5 in 2016-12-28 Heart Rate 81 /min 2016-12-28 Oximetry 98 % 2016-12-28 Blood pressure systolic 118 mm Hg 2016-12-28 Blood pressure diastolic 74 mm Hg 2016-12-28 MEDICATIONS Medication Instructions Dosage Frequency Start End Duration Status Date Date Pantoprazole TAKE 1 30 Active Sodium 40 TABLET BY MOUTH DAILY Pantoprazole as directed Active Sodium Naproxen 500 TAKE 1 30 Active TABLET BY MOUTH EVERY 12 HOURS Duloxetine HCl Orally Once a 1 CAPSULE 24h 30 days Active 60 MG day Magnesium Orally Twice a 5 ml 12h Active Hydroxide 2400 day MG/10ML Sertraline HCl Orally Once a 1 tablet 24h Active 50 MG day Lisinopril 10 MG Orally Once a 1 tablet 24h Active day Gabapentin 600 TAKE 1 30 Active TABLET BY MOUTH THREE TIMES DAILY Cefuroxime Orally Twice a 1 tablet 12h 24 Sep, 10 day(s) Active Axetil 250 MG 2016 Oxybutynin Orally Twice a 1 tablet 12h 07 Mar, 30 day(s) Active Chloride 5 mg day 2016 Lorazepam 1 MG ORAL Q 6 HRS 1 tablet Sep, as Active 2009 needed Saline 0.65 % Active Oxycodone-Acetam Orally every 6 1 tablet as 6h Dec, as Active inophen 7.5-325 hrs needed 2016 needed MG RESULTS No Results PROCEDURES Procedure Date Ordered Related Diagnosis Body Site CBC December 28, 2016 COMP PROFILE December 28, 2016 OFFICE VISITEST PT December 28, 2016 URINE DIPSTICKAUTO December 28, 2016 IMMUNIZATIONS No Known Immunizations
--- OUTSIDE RECORDS SUMMARY | 2018-01-03 23:43 | External Medical Summary ---
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
--- OUTSIDE RECORDS SUMMARY | 2018-01-03 23:44 | External Medical Summary ---
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
--- OUTSIDE RECORDS SUMMARY | 2018-01-03 23:44 | External Medical Summary ---
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 without organ or systems involvement Problem Depressive F32.9 Active 22377779 disorder, not elsewhere classified Problem 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 858296824 transient cerebral ischemias Problem Bilateral ankle M25.571 Active 959973226 pain ALLERGIES No Information SOCIAL HISTORY Never Assessed PLAN OF CARE Activity Details Follow Up prn Reason: VITAL SIGNS MEDICATIONS Unknown Medications RESULTS Name Result Date Reference Range Urine Dipstick w/Rfx to Microscopic Exam-Physicals 2017-04-12 COLOR P.YEL YELLOW-STRAW CLARITY CLEAR CLEAR LEUKOCYTES NEG NEGATIVE NITRITES NEG NEGATIVE pH 7 5-8 PROTEIN NEG NEGATIVE GLUCOSE NORM NEG KETONES NEG NEGATIVE UROBILINOGEN NORM 0 - 1.0 BILIRUBIN NEG NEGATIVE BLOOD NEG NEGATIVE SPEC GRAVITY 1.008 1.016-1.022 PROCEDURES Procedure Date Ordered Result Body Site URINE DIPSTICKAUTO Apr 12, 2017 IMMUNIZATIONS No Known Immunizations MEDICAL (GENERAL) [...]
--- OUTSIDE RECORDS SUMMARY | 2018-01-03 23:44 | External Medical Summary ---
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 Problem Age-related M80.00XG Active 519966862 osteoporosis with current pathological fracture with delayed healing, subsequent encounter Problem Bilateral ankle pain M25.571 Active 241169849 Problem Rheumatoid arthritis M05.771 Active 652944319 with rheumatoid factor of right ankle and foot without organ or systems involvement Problem Urge incontinence of N39.41 Active 28224438 urine Problem 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
--- OUTSIDE RECORDS SUMMARY | 2018-01-03 23:44 | External Medical Summary ---
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
--- OUTSIDE RECORDS SUMMARY | 2018-01-03 23:44 | External Medical Summary ---
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 without organ or systems involvement Assessment Screening for Z12.11 25 Nov, Active 577313297 colon cancer 2016 Problem Depressive F32.9 Active 38942787 disorder, not elsewhere classified Problem Essential I10 Active 05721352 hypertension, hypertension with unspecified goal ALLERGIES Unknown Allergies SOCIAL HISTORY No smoking Hx information available PLAN OF CARE Activity Details Pending Test OCCULT BLOOD prn,Reason: VITAL SIGNS MEDICATIONS Unknown Medications RESULTS No Results PROCEDURES Procedure Date Ordered Related Diagnosis Body Site OCCULT BLOOD, FECAL, IMMUNOASSAY December 07, 2015 IMMUNIZATIONS No Known Immunizations
--- OUTSIDE RECORDS SUMMARY | 2018-01-03 23:44 | External Medical Summary ---
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 Problem Depressive F32.9 Active 89896656 disorder, not elsewhere classified Problem 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 301362366 transient cerebral ischemias Problem Bilateral ankle M25.571 Active 010189938 pain ALLERGIES Unknown Allergies SOCIAL HISTORY No smoking Hx information available PLAN OF CARE VITAL SIGNS MEDICATIONS Medication Instructions Dosage Frequency Start End Duration Status Date Date Oxybutynin Orally Twice a 1 tablet 12h Aug, 30 day(s) Active Chloride 5 mg day 2016 Magnesium Orally Twice a 5 ml 12h 30 days Active Hydroxide 2400 day MG/10ML Sertraline HCl Orally Once a 1 tablet 24h 30 days Active 50 MG day Gabapentin 600 as directed as TAKE 1 30 Active directed TABLET BY MOUTH THREE TIMES DAILY Pantoprazole as directed as TAKE 1 30 Active Sodium 40 directed TABLET BY MOUTH DAILY Duloxetine HCl Orally Once a 1 CAPSULE 24h 30 days Active 60 MG day Lisinopril 10 MG Orally Once a 1 tablet 24h 30 days Active day Naproxen 500 as directed as TAKE 1 30 Active directed TABLET BY MOUTH EVERY 12 HOURS RESULTS No Results PROCEDURES No Known procedures IMMUNIZATIONS No Known Immunizations
--- OUTSIDE RECORDS SUMMARY | 2018-01-03 23:44 | External Medical Summary ---
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
--- OUTSIDE RECORDS SUMMARY | 2018-01-03 23:44 | External Medical Summary ---
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
--- OUTSIDE RECORDS SUMMARY | 2018-01-03 23:44 | External Medical Summary ---
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 970452773 transient cerebral ischemias Problem Depressive F32.9 Active 18037831 disorder, not elsewhere classified Problem Essential I10 Active 16426325 hypertension, hypertension with unspecified goal Problem Bilateral ankle M25.571 Active 831229503 pain Problem Rheumatoid M05.771 Active 663279574 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
--- OUTSIDE RECORDS SUMMARY | 2018-01-03 23:44 | External Medical Summary ---
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
--- OUTSIDE RECORDS SUMMARY | 2018-01-03 23:44 | External Medical Summary ---
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
--- OUTSIDE RECORDS SUMMARY | 2018-01-03 23:44 | External Medical Summary ---
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 898882261 transient cerebral ischemias Problem Depressive F32.9 Active 95808767 disorder, not elsewhere classified Problem Essential I10 Active 50195377 hypertension, hypertension with unspecified goal Problem Bilateral ankle M25.571 Active 837164514 pain Problem Rheumatoid M05.771 Active 328914309 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
--- OUTSIDE RECORDS SUMMARY | 2018-01-03 23:44 | External Medical Summary ---
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 Active 376556910 osteoporosis with current pathological fracture with delayed healing, subsequent encounter Problem Bilateral ankle pain M25.571 Active 006593629 Problem Rheumatoid arthritis M05.771 Active 141523923 with rheumatoid factor of right ankle and foot without organ or systems involvement Problem Urge incontinence of N39.41 Active 55910407 urine Problem 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
--- OUTSIDE RECORDS SUMMARY | 2018-01-03 23:44 | External Medical Summary ---
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 Problem Depressive F32.9 Active 78474509 disorder, not elsewhere classified Problem 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 121886490 transient cerebral ischemias Problem Bilateral ankle M25.571 Active 102930867 pain ALLERGIES Unknown Allergies SOCIAL HISTORY No smoking Hx information available PLAN OF CARE Activity Details Follow Up prn Reason: VITAL SIGNS MEDICATIONS Unknown Medications RESULTS Name Result Date Reference Range Urine Dipstick/Microscopic for Symptoms 2016-12-29 COLOR YEL YELLOW-STRAW CLARITY S.CLD CLEAR LEUKOCYTES NEG NEGATIVE NITRITES NEG NEGATIVE pH 8 5-8 PROTEIN NEG NEGATIVE GLUCOSE NORM NEG KETONES NEG NEGATIVE UROBILINOGEN NORM 0 - 1.0 BILIRUBIN NEG NEGATIVE BLOOD NEG NEGATIVE SPEC GRAVITY 1.016 1.016-1.022 WBC 0-2 0-5/HPF RBC 0 0-2/HPF GERRY-TRANS EPITH OCCASIONAL NONE/HPF SQUAMOUS EPITH OCCASIONAL FEW/HPF BACTERIA 0 NONE/HPF AMORPH CRYSTALS 3+ NONE/HPF CRYSTALS 0 NONE/HPF MUCOUS 0 NONE/HPF OTHER CASTS 0 NONE/LPF PROCEDURES Procedure Date Ordered Related Diagnosis Body Site URINALYSIS December 29, 2016 IMMUNIZATIONS No Known Immunizations
--- OUTSIDE RECORDS SUMMARY | 2018-01-03 23:44 | External Medical Summary ---
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
--- OUTSIDE RECORDS SUMMARY | 2018-01-03 23:44 | External Medical Summary ---
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 Active 619359644 osteoporosis with current pathological fracture with delayed healing, subsequent encounter Problem Bilateral ankle pain M25.571 Active 036163449 Problem Rheumatoid arthritis M05.771 Active 923680114 with rheumatoid factor of right ankle and foot without organ or systems involvement Problem Urge incontinence of N39.41 Active 40938287 urine Problem 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
--- OUTSIDE RECORDS SUMMARY | 2018-01-03 23:44 | External Medical Summary ---
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 428810571 transient cerebral ischemias Problem Depressive F32.9 Active 21306474 disorder, not elsewhere classified Problem Essential I10 Active 70864633 hypertension, hypertension with unspecified goal Problem Bilateral ankle M25.571 Active 401213849 pain Problem Rheumatoid M05.771 Active 697470177 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
--- OUTSIDE RECORDS SUMMARY | 2018-01-03 23:44 | External Medical Summary ---
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
--- OUTSIDE RECORDS SUMMARY | 2018-01-03 23:44 | External Medical Summary ---
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 729659126 artery syndrome Problem Age-related M80.00XG Active 723624555 osteoporosis with current pathological fracture with delayed healing, subsequent encounter Problem Bilateral ankle pain M25.571 Active 652448929 Problem Rheumatoid arthritis M05.771 Active 199751355 with rheumatoid factor of right ankle and foot without organ or systems involvement Problem Urge incontinence of N39.41 Active 11093512 urine Problem 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
--- OUTSIDE RECORDS SUMMARY | 2018-01-03 23:44 | External Medical Summary ---
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 or systems involvement Problem Depressive F32.9 Active 08577384 disorder, not elsewhere classified Problem 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
--- OUTSIDE RECORDS SUMMARY | 2018-01-03 23:44 | External Medical Summary ---
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
--- OUTSIDE RECORDS SUMMARY | 2018-01-03 23:44 | External Medical Summary ---
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 without organ or systems involvement Problem Depressive F32.9 Active 83240409 disorder, not elsewhere classified Problem 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 111107545 transient cerebral ischemias Problem Bilateral ankle M25.571 Active 683634997 pain ALLERGIES Substance Reaction Event Type Date Status Tetracycline Unknown Drug Allergy Dec, Active SOCIAL HISTORY No smoking Hx information available PLAN OF CARE Activity Details Follow Up prn Reason: VITAL SIGNS Weight 162 lbs 2016-12-21 Height 67.5 in 2016-12-21 BMI 25.00 kg/m2 2016-12-21 Blood pressure systolic 126 mm Hg 2016-12-21 Blood pressure diastolic 78 mm Hg 2016-12-21 MEDICATIONS Medication Instructions Dosage Frequency Start End Duration Status Date Date Saline 0.65 % Active Hydrocodone-Acet Orally every 6 1 tablet as 6h Jan, days Active aminophen hrs needed 2015 7.5-325 MG Lisinopril 10 MG Orally Once a 1 tablet 24h Active day Cefuroxime Orally Twice a 1 tablet 12h Sep, day(s) Active Axetil 250 MG day 2016 Gabapentin 600 TAKE 1 30 Active TABLET BY MOUTH THREE TIMES DAILY Naproxen 500 TAKE 1 30 Active TABLET BY MOUTH EVERY 12 HOURS Pantoprazole TAKE 1 30 Active Sodium 40 TABLET BY MOUTH DAILY Magnesium Orally Twice a 5 ml 12h Active Hydroxide 2400 day MG/10ML Sertraline HCl Orally Once a 1 tablet 24h Active 50 MG day Lorazepam 1 MG ORAL Q 6 HRS 1 tablet Sep, as Active 2009 needed Duloxetine HCl Orally Once a 1 CAPSULE 24h 30 days Active 60 MG day Oxybutynin Orally Twice a 1 tablet 12h Aug, day(s) Active Chloride 5 mg day 2016 Pantoprazole as directed Active Sodium RESULTS Name Result Date Reference Range BASIC CHEM 2016-12-21 GLUCOSE 116 60-99 BUN 11 8-23 CREATININE 0.6 0.4-1.1 SODIUM 139 133-145 POTASSIUM 3.8 3.3-5.1 CHLORIDE 101 96-108 CO2 26 23-31 CALCIUM 9.3 8.7-10.3 PROCEDURES Procedure Date Ordered Related Diagnosis Body Site BASIC CHEM 8 December 21, 2016 OFFICE VISITEST PT December 21, 2016 IMMUNIZATIONS No Known Immunizations
--- OUTSIDE RECORDS SUMMARY | 2018-01-03 23:44 | External Medical Summary ---
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
--- OUTSIDE RECORDS SUMMARY | 2018-01-03 23:44 | External Medical Summary ---
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 754903245 transient cerebral ischemias Problem Depressive F32.9 Active 33615488 disorder, not elsewhere classified Problem Essential I10 Active 37710373 hypertension, hypertension with unspecified goal Problem Bilateral ankle M25.571 Active 754843020 pain Problem Rheumatoid M05.771 Active 676040596 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
--- OUTSIDE RECORDS SUMMARY | 2018-01-03 23:44 | External Medical Summary ---
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 Problem Depressive F32.9 Active 77057926 disorder, not elsewhere classified Problem 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 075025895 transient cerebral ischemias Problem Bilateral ankle M25.571 Active 624836816 pain ALLERGIES Substance Reaction Event Type Date Status Tetracycline Unknown Drug Allergy Jan, Active SOCIAL HISTORY No smoking Hx information available PLAN OF CARE Activity Details Follow Up 3 Months Reason: Pending Test Protein Electrophoresis,serum #[id number] VITAL SIGNS Height 67.5 in 2017-02-05 Heart Rate 94 /min 2017-02-05 Oximetry 97 % 2017-02-05 Blood pressure systolic 108 mm Hg 2017-02-05 Blood pressure diastolic 62 mm Hg 2017-02-05 MEDICATIONS Medication Instructions Dosage Frequency Start End Duration Status Date Date Duloxetine HCl Orally Once a 1 CAPSULE 24h 30 days Active 60 MG day Lisinopril 10 MG Orally Once a 1 tablet 24h 30 days Active day Oxybutynin Orally Twice a 1 tablet 12h Aug, 30 day(s) Active Chloride 5 mg day 2016 Naproxen 500 as directed as TAKE 1 30 Active directed TABLET BY MOUTH EVERY 12 HOURS Pantoprazole as directed as TAKE 1 30 Active Sodium 40 directed TABLET BY MOUTH DAILY Gabapentin 300 Active MG Methotrexate 2.5 Orally 6 tabs as directed Jan, Active MG once a week on 2016 the same day of the wk RESULTS Name Result Date Reference Range Urine Culture #[id number] Urine MICROSCOPIC 2017-02-05 WBC 1-3 0-5/HPF RBC 0-1 0-2/HPF SQUAMOUS EPITH FEW FEW/HPF BACTERIA 2+ NONE/HPF CRYSTALS 0 NONE/HPF MUCOUS 0 NONE/HPF OTHER CASTS 0 NONE/LPF Urine Dipstick w/Rfx to Microscopic Exam-Physicals 2017-02-05 COLOR YEL YELLOW-STRAW CLARITY CLEAR CLEAR LEUKOCYTES NEG NEGATIVE NITRITES POS NEGATIVE pH 7 5-8 PROTEIN NEG NEGATIVE GLUCOSE NORM NEG KETONES NEG NEGATIVE UROBILINOGEN NORM 0 - 1.0 BILIRUBIN NEG NEGATIVE BLOOD NEG NEGATIVE SPEC GRAVITY 1.010 1.016-1.022 PROCEDURES Procedure Date Ordered Related Diagnosis Body Site T PROTEIN Feb 05, 2017 PROTEIN ELECTROPHOR Feb 05, 2017 OFFICE VISITEST PT Feb 05, 2017 URINE DIPSTICKAUTO Feb 05, 2017 URINE CULTURE Feb 05, 2017 IMMUNIZATIONS No Known Immunizations
--- OUTSIDE RECORDS SUMMARY | 2018-01-03 23:44 | External Medical Summary ---
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
--- OUTSIDE RECORDS SUMMARY | 2018-01-03 23:44 | External Medical Summary ---
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
--- OUTSIDE RECORDS SUMMARY | 2018-01-03 23:44 | External Medical Summary ---
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
--- OUTSIDE RECORDS SUMMARY | 2018-01-03 23:44 | External Medical Summary ---
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
--- OUTSIDE RECORDS SUMMARY | 2018-01-03 23:44 | External Medical Summary ---
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
--- OUTSIDE RECORDS SUMMARY | 2018-01-03 23:44 | External Medical Summary ---
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
--- OUTSIDE RECORDS SUMMARY | 2018-01-03 23:44 | External Medical Summary ---
:1950 Author Organization [facility] Address [address] [place] [address] Care Team Providers Name Role Phone Librado Baez Unavailable Unavailable PROBLEMS Type Condition ICD9-CM URN29-CL Onset Condition SNOMED Code Code Code Dates Status Problem Essential I10 Active 92881576 hypertension, hypertension with unspecified goal Problem Rheumatoid arthritis M05.771 Active 976862929 with rheumatoid factor of right ankle and foot without organ or systems involvement Problem Depressive disorder, F32.9 Active 95569377 not elsewhere classified Problem Hammertoe of left M20.42 Active 274686991 foot Problem 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 Problem 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 896788479 transient cerebral ischemias Problem Bilateral ankle pain M25.571 Active 374011635 Problem Age-related M80.00XG Active 998698409 osteoporosis with current pathological fracture with delayed healing, subsequent encounter Problem Urge incontinence of N39.41 Active 07979383 urine ALLERGIES No Information ENCOUNTERS Encounter Location Date Diagnosis [address] Sep, Dysuria R30.0 ; Oral ulcer Physicians ALEXIA OCONNELL [address] K12.1 and Hammertoe of left foot M20.[address] Sep, Physicians ALEXIA OCONNELL [address] Aug, Physicians ALEXIA OCONNELL [address] Jun, Physicians ALEXIA OCONNELL [address] Jun, Physicians ALEXIA OCONNELL [id number] [place] [address] Jun, Other specified transient Physicians ALEXIA OCONNELL 40787 cerebral ischemias G45.8 ; Acute pansinusitis, recurrence not specified J01.40 and Dysuria R30.[address] Jun, Other specified transient Physicians ALEXIA OCONNELL 36790 cerebral ischemias G45.8 ; Acute pansinusitis, recurrence not specified J01.40 and Dysuria R30.0 [facility] [address] May, Physicians ALEXIA OCONNELL [address] [place] [address] [address] May, Other specified transient Physicians ALEXIA OCONNELL 60627 cerebral ischemias G45.8 ; Acute pansinusitis, recurrence not specified J01.40 and Dysuria R30.0 [facility] [address] Apr, Physicians ALEXIA OCONNELL [id number] [place] [address] [address] Apr, Physicians ALEXIA OCONNELL [address] [place] [address] [address] Mar, Urinary tract infection Physicians ALEXIA OCONNELL [facility] without hematuria, site unspecified N39.0 [facility] [address] Mar, Urinary tract infection Physicians ALEXIA OCONNELL [facility] without hematuria, site unspecified N39.0 [facility] [address] Mar, Dysfunction of right Physicians ALEXIA OCONNELL 624[address] Eustachian tube H69.81 ; Chronic UTI N39.0 and Dysuria R30.0 [facility] [address] Mar, Physicians ALEXIA OCONNELL [address] [place] [address] [address] Feb, Physicians ALEXIA OCONNELL [address] [place] [address] [address] Feb, Dysuria R30.0 Physicians ALEXIA OCONNELL [address] [place] [address] [address] Feb, Physicians ALEXIA OCONNELL [address] [place] [address] [address] Feb, Physicians ALEXIA OCONNELL [address] [place] [address] [address] Feb, Dysuria R30.0 Physicians ALEXIA OCONNELL [address] [place] [address] [address] Feb, Physicians ALEXIA OCONNELL [address] [place] [address] [address] Feb, Dysuria R30.0 Physicians ALEXIA OCONNELL [address] [place] [address] [address] Feb, Physicians ALEXIA OCONNELL212 [facility] [address] 13 Feb, 2017 Physicians ALEXIA OCONNELL [address] [facility] [address] Feb, Physicians ALEXIA OCONNELL [facility] [address] Feb, Physicians ALEXIA OCONNELL [facility] [address] Feb, Physicians ALEXIA OCONNELL [facility] [address] Feb, Physicians ALEXIA OCONNELL [facility] [address] Jan, Physicians ALEXIA OCONNELL [facility] [address] Jan, Elevated serum globulin level Physicians ALEXIA OCONNELL R77.1 ; Urge incontinence of urine N39.41 ; Age-related osteoporosis with current pathological fracture with delayed healing, subsequent encounter M80.00XG and Dysuria R30.0 [facility] [address] Jan, Elevated serum globulin level Physicians ALEXIA OCONNELL R77.1 ; Urge incontinence of urine N39.41 ; Age-related osteoporosis with current pathological fracture with delayed healing, subsequent encounter M80.00XG and Dysuria R30.0 [facility] [address] Jan, Physicians ALEXIA OCONNELL212 [facility] [address] Jan, Physicians ALEXIA OCONNELL212 [facility] [address] Jan, Physicians ALEXIA OCONNELL [facility] [address] Jan, Physicians ALEXIA OCONNELL [facility] [address] Dec, Physicians ALEXIA OCONNELL [facility] [address] Dec, Physicians ALEXIA OCONNELL [facility] [address] Dec, Acute pansinusitis, recurrence Physicians ALEXIA OCONNELL not specified J01.40 and Rheumatoid arthritis with rheumatoid factor of right ankle and foot without organ or systems involvement M05.771 [facility] [address] Dec, [place] [id number] [place] [address] [address] Dec, Physicians ALEXIA OCONNELL [id number] [place] [address] [address] Dec, Physicians ALEXIA OCONNELL [address] [facility] [address] Dec, Acute delirium R41.0 ; Urinary Physicians ALEXIA OCONNELL212 tract infection, site unspecified N39.0 and Elevated serum globulin level R77.1 [facility] [address] Dec, Elevated serum globulin level Physicians ALEXIA OCONNELL212 R77.1 [facility] [address] Dec, Physicians ALEXIA OCONNELL [id number] [place] [address] [address] Dec, Acute delirium R41.0 Physicians ALEXIA OCONNELL212 [facility] [address] Dec, Physicians ALEXIA OCONNELL212 [facility] [address] Dec, Physicians ALEXIA OCONNELL212 [facility] [address] Dec, Pain in left knee M25.562 Physicians ALEXIA OCONNELL212 [facility] [address] Dec, Physicians ALEXIA OCONNELL [address] [facility] [address] Dec, Urinary tract infection, site Physicians ALEXIA OCONNELL212 unspecified N39.0 [facility] [address] Dec, Physicians ALEXIA OCONNELL [address] [facility] [address] Dec, Acute cystitis without Physicians ALEXIA OCONNELL hematuria N30.00 ; Hypokalemia E87.6 and Age-related osteoporosis with current pathological fracture with delayed healing, subsequent encounter M80.00XG [facility] [address] Dec, Physicians ALEXIA OCONNELL212 [facility] [address] Nov, Pain in left knee M25.562 Physicians ALEXIA OCONNELL [facility] [address] Nov, Physicians ALEXIA OCONNELL [facility] [address] Nov, Physicians ALEXIA OCONNELL [facility] [address] [facility] Nov, Physicians ALEXIA OCONNELL [id number] [place] [address] 8[address] [facility] October, Physicians ALEXIA OCONNELL212 [facility] [address] [facility] October, Physicians ALEXIA OCONNELL212 [facility] [address] [facility] Sep, Acute pansinusitis, recurrence Physicians ALEXIA OCONNELL212 not specified J01.40 and Pain in left knee M25.562 [facility] [address] [place] [address] Aug, Physicians ALEXIA OCONNELL [facility] [address] [place] [address] Aug, Rheumatoid arthritis with Physicians ALEXIA OCONNELL rheumatoid factor of right ankle and foot without organ or systems involvement M05.771 ; Urge incontinence of urine N39.41 ; Pain of left leg M79.605 and Pain in right leg M79.[address] Aug, Physicians ALEXIA OCONNELL212 [facility] [address] [facility] Jun, Elevated blood pressure Physicians ALEXIA OCONNELL212 reading R03.0 ; Acute pansinusitis, recurrence not specified J01.40 and Other specified transient cerebral ischemias G45.8 [facility] [address] [place] [address] Jun, Physicians ALEXIA OCONNELL [address] [facility] [address] Jun, [facility] [place] [address] [facility] [address] May, [place] [address] [facility] [address] [facility] Apr, Physicians ALEXIA OCONNELL [address] [facility] [address] [facility] Apr, Physicians ALEXIA OCONNELL [address] [facility] [address] [facility] Apr, N&V (nausea and vomiting) Physicians ALEXIA OCONNELL 12790 R11.2 ; Non-intractable vomiting with nausea, unspecified vomiting type R11.2 and Rheumatoid arthritis with rheumatoid factor of right ankle and foot without organ or systems involvement M05.771 [facility] [address] [facility] Mar, Physicians ALEXIA OCONNELL [address] Mar, Non-intractable vomiting with Physicians ALEXIA OCONNELL nausea, unspecified vomiting type R11.2 ; Rheumatoid arthritis with rheumatoid factor of right ankle and foot without organ or systems involvement M05.771 and Dysuria R30.[address] Jan, Upper back strain, initial Physicians ALEXIA OCONNELL encounter S29.012A ; Acute left-sided thoracic back pain M54.6 ; Rheumatoid arthritis with rheumatoid factor of right ankle and foot without organ or systems involvement M05.771 and Other intermediate (current) drug therapy Z79.[address] Jan, Physicians ALEXIA OCONNELL [address] Jan, Physicians ALEXIA OCONNELL [address] Nov, Physicians ALEXIA OCONNELL [address] Nov, Screening for colon cancer Physicians ALEXIA OCONNELL Z12.[address] October, Physicians ALEXIA OCONNELL [address] Sep, Rheumatoid arthritis M06.9 ; Physicians ALEXIA OCONNELL Essential hypertension, hypertension with unspecified goal I10 ; Depressive disorder, not elsewhere classified F32.9 ; Drug therapy Z79.899 and Bilateral ankle pain M25.[address] Sep, Essential hypertension, Physicians ALEXIA OCONNELL hypertension with unspecified goal I10 ; Depressive disorder, not elsewhere classified F32.9 ; Rheumatoid arthritis M06.9 ; Drug therapy Z79.899 ; Bilateral ankle pain M25.571 and Unspecified abnormal findings in urine R82.[address] Sep, Physicians ALEXIA OCONNELL [address] Sep, Rheumatoid arthritis with Physicians ALEXIA OOCNNELL rheumatoid factor of right ankle and foot without organ or systems involvement M05.[address] Sep, Physicians ALEXIA OCONNELL [address] [place] [address] [address] [facility] Aug, Physicians ALEXIA OCONNELL [address] [place] [address] [address] [facility] Aug, Physicians ALEXIA OCONNELL [address] [place] [address] [address] [facility] May, Physicians ALEXIA OCONNELL [address] [facility] [address] [place] [address] May, Physicians ALEXIA OCONNELL [address] [place] [address] [address] [facility] Apr, Rheumatoid arthritis M06.9 Physicians ALEXIA OCONNELL [address] [place] [address] [address] [facility] Apr, Rheumatoid arthritis M06.9 Physicians ALEXIA OCONNELL [address] [place] [address] [place] [address] Feb, Abnormal kidney function 593.9 Physicians ALEXIA OCONNELL [address] [place] [address] 8[address] [facility] Jan, Abnormal kidney function 593.9 Physicians ALEXIA OCONNELL [address] [place] [address] [place] [address] Jan, Hyperkalemia 276.7 Physicians ALEXIA OCONNELL [address] [place] [address] [address] [facility] Dec, Hyperkalemia 276.7 Physicians ALEXIA OCONNELL [address] [place] [address] [place] [address] Dec, Toe ulcer 707.15 ; Rheumatoid Physicians ALEXIA OCONNELL212 arthritis 714.0 and Drug therapy V58.69 [facility] [address] [facility] Nov, Physicians ALEXIA OCONNELL [address] [facility] [address] [place] [address] Jun, Serum potassium elevated 276.7 Physicians ALEXIA OCONNELL [address] [facility] [address] [facility] Jun, Physicians ALEXIA OCONNELL [address] [facility] [address] [facility] Jun, Serum potassium elevated 276.7 Physicians ALEXIA OCONNELL [address] [place] [address] [place] [address] May, Rheumatoid arthritis 714.0 ; Physicians ALEXIA OCONNELL Knee pain, left 719.46 and Drug therapy V58.69 [facility] [address] [place] [address] Apr, Physicians ALEXIA OCONNELL212 [facility] [address] [place] [address] Apr, Hematuria 599.70 Physicians ALEXIA OCONNELL [address] [facility] [address] [place] [address] Apr, Physicians ALEXIA OCONNELL [address] Mar, Physicians ALEXIA OCONNELL [address] Mar, Physicians ALEXIA OCONNELL [address] Mar, Rheumatoid arthritis 714.0 ; Physicians ALEXIA OCONNELL Hypertension, Unspecified 401.9 ; Drug therapy V58.69 ; Creatinine elevation 790.99 ; Elevated cholesterol 272.0 ; Left knee pain 719.46 ; Cervical cancer screening V76.2 and Well Woman Exam V72.31 [facility] [address] [place] [address] Feb, Physicians ALEXIA OCONNELL212 [address] Feb, Physicians ALEXIA OCONNELL [address] Feb, Physicians ALEXIA OCONNELL212 [facility] [address] [place] [address] Feb, Rheumatoid arthritis 714.0 and Physicians ALEXIA OCONNELL Elevated WBC count 288.[address] Feb, Physicians ALEXIA OCONNELL [address] October, Physicians ALEXIA OCONNELL212 [address] October, Rheumatoid arthritis 714.0 and Physicians ALEXIA OCONNELL Elevated WBC count 288.60 [facility] [address] [place] [address] October, Rheumatoid arthritis 714.0 ; Physicians ALEXIA OCONNELL Hypertension, Unspecified 401.9 and Myalgia 729.[address] Sep, Physicians ALEXIA OCONNELL [address] Jul, Physicians ALEXIA OCONNELL [facility] [address] [place] [address] Jul, Infection and inflammatory Physicians ALEXIA OCONNELL reaction due to other internal orthopedic device, implant, and graft 996.67 [facility] [address] [place] [address] Jul, Physicians ALEXIA OCONNELL212 [facility] [address] [facility] Jul, Infection and inflammatory Physicians ALEXIA OCONNELL reaction due to other internal orthopedic device, implant, and graft 996.67 [facility] [address] Jul, Physicians ALEXIA OCONNELL212 [facility] [address] [place] [address] Jun, Physicians ALEXIA OCONNELL [facility] [address] [place] [address] Jun, Physicians ALEXIA OCONNELL [facility] [address] [facility] May, Physicians ALEXIA OCONNELL [facility] [address] [place] [address] May, Physicians ALEXIA OCONNELL [facility] [address] [place] [address] May, Physicians ALEXIA OCONNELL [facility] [address] [place] [address] Apr, Leg pain, right 729.5 ; Physicians ALEXIA OCONNELL Rheumatoid arthritis 714.0 ; Cellulitis 682.9 and Urinary incontinence 788.30 [facility] [address] [place] [address] Mar, Physicians ALEXIA OCONNELL [facility] [address] [place] [address] Feb, Rheumatoid arthritis 714.0 and Physicians ALEXIA OCONNELL Cellulitis 682.9 [facility] [address] [place] [address] Feb, Creatinine elevation 790.99 Physicians ALEXIA OCONNELL [facility] [address] [place] [address] Feb, Rheumatoid arthritis 714.0 Physicians ALEXIA OCONNELL [facility] [address] [facility] Feb, Physicians ALEXIA OCONNELL [facility] [address] [facility] Feb, Cellulitis 682.9 and Lump of Physicians ALEXIA OCONNELL other site of lower extremity 782.2 [facility] [address] [place] [address] Feb, Cellulitis 682.9 ; Rheumatoid Physicians ALEXIA OCONNELL arthritis 714.0 and Drug therapy V58.69 [facility] [address] [place] [address] Feb, Physicians ALEXIA OCONNELL [facility] [address] Feb, [place] [address] [facility] [address] Feb, Physicians ALEXIA OCONNELL [address] [facility] [address] [facility] Feb, Right leg pain 729.5 Physicians ALEXIA OCONNELL212 [facility] [address] [facility] Feb, Right leg pain 729.5 and Physicians ALEXIA OCONNELL Cellulitis 682.9 [facility] [address] Feb, [facility] [place] [address] [facility] [address] Feb, Physicians ALEXIA OCONNELL [address] [facility] [address] [facility] Dec, Physicians ALEXIA OCONNELL [facility] [address] [facility] Dec, Elevated MCV 790.09 and Physicians ALEXIA OCONNELL212 Elevated cholesterol 272.0 [facility] [address] [facility] Nov, Elevated MCV 790.09 and Physicians ALEXIA OCONNELL Elevated cholesterol 272.0 [facility] [address] [facility] Nov, Physicians ALEXIA OCONNELL [address] [facility] [address] [facility] Nov, Hand pain, right 729.5 ; Physicians ALEXIA OCONNELL212 Rheumatoid arthritis 714.0 ; Hypercholesteremia 272.0 and Encounter for long-term (current) drug use V58.69 [facility] [address] [facility] Sep, Physicians ALEXIA OCONNELL [address] [facility] [address] [facility] Sep, Physicians ALEXIA OCONNELL [facility] [address] [facility] Aug, Physicians ALEXIA OCONNELL212 [facility] [address] [facility] Aug, Osteoporosis 733.09 Physicians ALEXIA OCONNELL [facility] [address] [facility] Aug, Physicians ALEXIA OCONNELL212 [facility] [address] [facility] Aug, Physicians ALEXIA OCONNELL [facility] [address] [facility] Aug, Physicians ALEXIA OCONNELL [address] [facility] [address] Aug, Physicians ALEXIA OCONNELL [address] [facility] [address] Aug, Physicians ALEXIA OCONNELL [address] [facility] [address] Aug, Right knee pain 719.46 ; Physicians ALEIXA OCONNELL212 Osteoporosis 733.09 ; Encounter for long-term (current) drug use V58.69 and Rheumatoid arthritis 714.0 [facility] [address] Jun, Physicians ALEXIA OCONNELL [address] [facility] [address] May, Physicians ALEXIA OCONNELL [address] [facility] [address] Jan, Physicians ALEXIA OCONNELL [address] [facility] [address] Dec, Physicians ALEXIA OCONNELL [address]12[address] [facility] [address] Dec, Rheumatoid arthritis 714.0 Physicians ALEXIA OCONNELL [address] [facility] [address] Dec, Physicians ALEXIA OCONNELL [address] [facility] [address] Aug, Physicians ALEXIA OCONNELL 113[address] [facility] [address] Aug, Hyperglyceridemia 272.1 Physicians ALEXIA OCONNELL [address] [facility] [address] Aug, Physicians ALEXIA OCONNELL [address] [facility] [address] Aug, Hyperglyceridemia 272.1 Physicians ALEXIA OCONNELL212 [facility] [address] Aug, Pain in joint, lower leg Physicians ALEXIA OCONNELL 719.46 ; Rheumatoid arthritis 714.0 ; Other malaise and fatigue 780.79 and Depressive disorder, not elsewhere classified 311 [facility] [address] Apr, Physicians ALEXIA OCONNELL [address] [facility] [address] Apr, Physicians ALEXIA OCONNELL212 [facility] [address] Apr, Physicians ALEXIA OCONNELL212 [facility] [address] Apr, Physicians ALEXIA OCONNELL [address] [facility] [address] Mar, Physicians ALEXIA OCONNELL 138[address] [facility] [address] Feb, Physicians ALEXIA OCONNELL [address]63[address] [facility] [address] Jan, Physicians ALEXIA OCONNELL [address]1154 [facility] [address] Jan, Physicians ALEXIA OCONNELL [address] [facility] [address] Dec, Physicians ALEXIA OCONNELL [address] [facility] [address] Nov, Physicians ALEXIA OCONNELL 79[address] [facility] [address] Nov, Physicians ALEXIA OCONNELL 00634 [facility] [address] Nov, Physicians ALEXIA OCONNELL [address] [facility] [address] Nov, Physicians ALEXIA OCONNELL 74237 [facility] [address] Nov, Physicians ALEXIA OCONNELL 199[address] [facility] [address] Nov, Physicians ALEXIA OCONNELL [address] [facility] [address] October, Physicians ALEXIA OCONNELL [address] [facility] [address] Aug, Physicians ALEXIA OCONNELL [address]69[address] [facility] [address] Jul, Physicians ALEXIA OCONNELL 83257 [facility] [address] Jul, Physicians ALEXIA OCONNELL 545[address] [facility] [address] Jul, Physicians ALEXIA OCONNELL 95264 [facility] [address] Jul, Physicians ALEXIA OCONNELL 88597 [facility] [address] Jun, Physicians ALEXIA OCONNELL [address]9551 [facility] [address] Jun, Physicians ALEXIA OCONNELL [address] [facility] [address] Mar, Physicians ALEXIA OCONNELL 80968 [facility] [address] Feb, Physicians ALEXIA OCONNELL [facility] [address] Jan, Physicians ALEXIA OCONNELL 31867[facility] [address] Nov, Physicians ALEXIA OCONNELL [address] [facility] [address] October, Physicians ALEXIA OCONNELL [address]1294 [facility] [address] Jul, Physicians ALEXIA OCONNELL 15804 [facility] [address] Jun, Physicians ALEXIA OCONNELL 95[address] [facility] [address] Dec, Physicians ALEXIA OCONNELL 94383 [facility] [address] Sep, Physicians ALEXIA OCONNELL 26144 [facility] [address] Dec, Physicians ALEXIA OCONNELL 93293 [facility] [address] Nov, Physicians ALEXIA OCONNELL 24572 [facility] [address] Sep, Physicians ALEXIA OCONNELL 36954 [facility] [address] Jun, Physicians ALEXIA OCONNELL 49940 [facility] [address] Jan, Physicians ALEXIA OCONNELL [address]3989 [facility] [address] May, Physicians ALEXIA OCONNELL [address] [facility] [address] Apr, Physicians ALEXIA OCONNELL [address]6762 [place] [facility] [address] Feb, Physicians ALEXIA OCONNELL 77531 [facility] [address] Feb, Physicians ALEXIA OCONNELL212 IMMUNIZATIONS No Known Immunizations SOCIAL HISTORY Never Assessed REASON FOR VISIT UTI PLAN OF CARE VITAL SIGNS MEDICATIONS No Known Medications RESULTS No Results PROCEDURES No Known procedures INSTRUCTIONS MEDICATIONS ADMINISTERED No Known Medications MEDICAL (GENERAL) HISTORY Type Description Date Medical [...]
--- OUTSIDE RECORDS SUMMARY | 2018-01-03 23:44 | External Medical Summary ---
:1950 Author Organization [facility] Address [address] [place] [address] Care Team Providers Name Role Phone Librado Baez Unavailable Unavailable PROBLEMS Type Condition ICD9-CM Code PPL23-QA Code Onset Condition SNOMED Code Dates Status Problem Essential I10 Active 33196828 hypertension, hypertension with unspecified goal Problem Age-related M80.00XG Active 616799194 osteoporosis with current pathological fracture with delayed healing, subsequent encounter Problem Urge incontinence N39.41 Active 63512570 of urine Problem Rheumatoid M05.771 Active 130737974 arthritis with rheumatoid factor of right ankle and foot without organ or systems involvement Problem Depressive F32.9 Active 77002356 disorder, not elsewhere classified Problem 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
[2018-01-04] MEDS ORDERED: MORPHINE SULFATE 4mg INJECTION IVP PRN (00:27)
[2018-01-04] MEDS ORDERED: HYDROCODONE/APAP 5mg/325mg TABLET PO PRN (00:27)
[2018-01-04] MEDS ORDERED: ACETAMINOPHEN 325 MG TABLET PO PRN (00:27)
[2018-01-04] MEDS ORDERED: ONDANSETRON 4 MG/2 ML INJECTION IVP PRN ×2 (00:27→22:23)
[2018-01-04 00:41] VITALS: BMI 24.7
[2018-01-04] MEDS: NS 1,000 ML IV SCH ×5 (00:42→22:27)
--- NOTE | 2018-01-04 01:26 | History & Physical Report ---
History of Present Illness Date: 01/04/18 Chief complaint: right hip pain HPI: this is a 67 y/o female who was walking her dog and her dog got loose and she was trying to step on leash to keep out of road and tripped and fell on her right side with immediate pain. ED evaluation demonstrates a right femoral neck fracture. Dr. Lopez was contacted and requested hospitalist admission. Patient has a history of RA and osteoporosis. Currently on MTX for her RA. The patient has a hx of recent fx ofher left tibial plateau with subsequent surgery. In the past has fractured her right lower extremity. The patient reports that she is currently being treated with Bactrim for her UTI. 2 d out of 7 so far. The patient is limited in her activity 2/2 her RA but has no increased SOA recently. She denies any chest pain with exertion. no pnd, no orthopnea. Occasionally she will have a cough. The patient is admitted with continued pre op evaluation. Review of Systems Review of systems: negative except for outlined above in HPI Past Medical History Medical History Updates: RA, osteoporosis Surgical History: tubal ligation, tibial plateua fx left tibia , right ? femur fx with ovidio and subsequent marrow infection requiring ovidio removal and at least 6 weeks of iv antibiotics, finger surgery Family History Updates: mother 83 CAD, CVA. father 92 ? cause Family History: As Above - Social History Smoking status: Former smoker Substance use type: does not use Alcohol intake frequency: does not drink Housing: house Current occupational status: employed Current residence: Apartment/Private Home Medications Home Medications Medication Instructions Recorded Confirmed Type Ascorbic Acid [Vitamin C] 500 mg PO DAILY 01/03/18 01/03/18 History Calcium Carbonate [Calcium] 500 mg PO DAILY 01/03/18 01/03/18 History Cranberry 500 mg PO DAILY 01/03/18 01/03/18 History Duloxetine [Cymbalta] 60 mg PO DAILY 01/03/18 01/03/18 History Folic Acid [Folate] 1 mg PO DAILY 01/03/18 01/03/18 History Gabapentin 300 mg PO TID 01/03/18 01/03/18 History Methotrexate Inj [Methotrexate] 0.8 mg SQ Q7D 01/03/18 01/03/18 History Multivitamin [One Daily] 1 each PO DAILY 01/03/18 01/03/18 History Naproxen 500 mg PO BID 01/03/18 01/03/18 History Oxybutynin Chloride 5 mg PO BID 01/03/18 01/03/18 History Pantoprazole Tab [Protonix Tab] 40 mg PO ACB 01/03/18 01/03/18 History Sulfamethox/Tmp [Bactrim Ds] 1 tab PO BID 01/03/18 01/03/18 History Teriparatide [Forteo] 1 dose SQ DAILY 01/03/18 01/03/18 History Allergies Allergy/AdvReac Type Severity Reaction Status Date / Time clindamycin Allergy Unknown Verified 01/03/18 21:00 tetracycline Allergy Unknown Verified 01/03/18 21:00 hydrocodone AdvReac Unknown Confusion Verified 01/03/18 21:00 Exam Vital Signs: Temperature 98.0 F 01/04/18 00:25 Pulse Rate 97 01/04/18 00:25 Respiratory Rate 16 01/04/18 00:25 Blood Pressure 180/92 H 01/04/18 00:51 Pulse Oximetry 91 01/04/18 00:25 Telemetry Rhythm: Sinus Rhythm Height/Weight/BMI: Height 1.7 m Weight 71.6 kg Body Mass Index 24.7 - Constitutional Present: mild distress, well nourished, well developed, obese, cooperative - Routine HEENT Exam Head: Present: normocephalic, atraumatic Eye: Present: EOMI ENT: Present: mucous membranes moist - Routine Neck Exam Present: supple - Routine Respiratory Exam Present: CTA bilaterally - Routine Cardiovascular Exam Present: RRR, no murmur. Absent: S3 - Routine Abdominal Exam Present: normoactive bowel sounds, non distended, non tender - Routine Extremities Exam Present: no edema Comments: hands with ulnar deviation of digits bilaterally, right leg is shortened, tender with any movement - Routine Skin Exam Present: intact, dry - Routine Neurological Exam Present: alert, oriented X3, moving all extremities, normal tone, vision grossly intact, hearing grossly intact, normal speech - Routine Psychiatric Exam Present: normal affect, normal thought process Results - Labs CBC & Chem 7: 01/04/18 04:26 01/04/18 04:26 Labs: reviewed and will be discussed below Assessment and Plan Assessment and Plan: 1. right hip fracture acute POA: pre op so far demonstrates elevated WBC count . baseline not known. currently being tx for UTI. technically meets sepsis criteria. cxr is okay. ekg pending. patient has at most 4 mets activity without pain. She is a moderate risk. As long as EKG is okay she is okay for surgery without risk stratification 2. sepsis acute POA: tachy, leukocytosis. leukocytosis may be leukamoid from fx no meds that I can see could account for leukocytosis, currently being tx for UTI. fluids, repeat labs in the am. 3. HtN acute POA: no meds form home. 2/2 pain possibly. prn hydralaine overnight 4. UTI acute POA: rocephin. cx. adjust as indicated 5. RA chronic POA: on MTX only. not tolerated biologics in the past. obvious an issue with intubation but otherwise no further concerns. with MTX would not r/c bactrim at discharge 6. zofia acute POA: baseline not know. fluids and repeat in the am 7. DVT ppx; SCD, as surgery possibly this am would not give lovenox ovenright 8. osteoporosis chronic POA: previous fx. to be aware of. affects I am sure the approach by surgery. DVT Prophylaxis: SCD's Resuscitation Status: Full Code - Time spent with patient Time with patient PN: 35 minutes - Physician Narrative Physician: Yennifer Maldonado Narrative: Date: 01/04/18 Time: 0123 Dr. Maya's note reviewed. Mrs. Hein interviewed and examined at bedside. Patient's son present at bedside. CC: Right hip pain status post fall HPI: A pleasant 67-year-old female patient of Dr. Baez who also follows up with color control operator, Dr. Menjivar was walking her dog last evening when she stepped on the leash to keep her dog from the running on the street, slipped and fell on her right side. Immediately after fall, patient noticed sharp pain in her right hip and reportedly did not even attempt to stand or bear weight. EMS was called and patient brought to emergency room where x-ray showed evidence of femoral neck fracture on the right side. Hospitalist service was contacted for admission and orthopedic surgery consulted. Patient's WBC count 23 ,100 this morning when compared to 28,200 last night. Hemoglobin dropped from 8.4 last night to 7.8 this morning. Patient has previous records from rheumatology clinic, labs drawn on 06/24/2016 shows WBC count 8100 with hemoglobin 10.5 and most recent labs drawn on 10/11/2017 shows WBC count of 8600 with hemoglobin of 10.4. No reported chest pain, no palpitations, no shortness of breath, no flank pain, no burning urination, no dysuria, no subjective fever, no chills, no increased sweating. Patient does report having urinary incontinence. Patient was recently started on oral Bactrim for UTI 2 days ago by PCP. Patient's urinalysis suspicious for infection, urine culture results awaited. Patient also has significant history of rheumatoid arthritis since the age of 24 years, currently on weekly injection of methotrexate on Wednesdays. Patient did try biological agents in the past however it did not agree with her. Patient also on teriparatide for osteoporosis. No reported previous history of hypertension although patient states that when she is admitted at the hospital, blood pressure noted to be high. PH/SH/FH: agree with that recorded above. In addition, patient reports significant, approximately 78-agpi-vpcg history of tobacco use and used to smoke 2 pack per day until she quit in 2005. Patient also reports knuckle surgery bilateral hands. ROS: 10 point review as in history of present illness EXAM: General: Alert, awake, oriented x 3. In mild painful distress. Head: Pupils equal, round, reactive to light and accommodation. Positive pallor. Extraocular movements intact. Neck: No elevation in JVP. No pharyngeal erythema noted. Chest: The patient does not use accessory muscles for breathing. Lungs: Breath sounds audible on auscultation bilateral lung luna. No wheezing , no rhonchi, no crepitations, no crackles. No pleural rub. CVS: S1, S2 heard on auscultation. Normal rate and rhythm. No murmur, no S3/S4 gallops. Abdomen: Soft, nontender, no distention. Bowel sounds appreciated on auscultation. : No flank tenderness, no suprapubic distention or tenderness. Skin: No rashes, no induration, no erythema. Capillary refill less than 4 seconds. Extremities: Chronic ulnar drift with palmar flexion at the MCP joints noted in bilateral upper extremities with deformity. Right lower extremity shortened. No evidence of pedal edema bilateral lower extremities. No calf tenderness bilaterally. Palpable dorsalis pedis and posterior tibial pulses bilateral lower extremities. DATA: Two-view x-ray of right hip performed in the ER Impression: Transverse fracture across the right femoral neck, with shortening and extradural rotation. Chest x-ray, no acute process. WBC count 23,100 with left shift. Urinalysis suspicious for UTI, culture results awaited. Hemoglobin 7.8 this morning. EKG performed in the emergency room shows sinus rhythm without any acute ST segment changes. Assessment: Acute right hip fracture neck femur. Acute kidney injury. Long- standing history of rheumatoid arthritis. Leukocytosis with concern for sepsis originating from urinary tract infection, on IV antibiotics. Urinary incontinence with history of recurrent UTI. Osteoporosis. Elevated blood pressure without previous reported history of hypertension. Plan: Patient admitted by hospitalist service to medical floor and orthopedic surgery consulted, patient has been evaluated by Dr. Lopez and tentative plan for surgical intervention, hemiarthroplasty procedure once medically appropriate. We'll type, cross match and transfuse 1 unit of PRBC and recheck H& H 1 hour posttransfusion. Continue IV Rocephin 1 g daily, continue IV fluids normal saline at 100 mL per hour. IV morphine as needed for pain control. Will hold home medications methotrexate, teriparatide for now. IV hydralazine 10 mg every 4 hours as needed for systolic blood pressure greater than 160. Patient has taken aspirin 81 mg by mouth does yesterday, which does increase her risk for perioperative oozing and bleeding. Discussed with patient and her son that she may require more PRBC transfusion following surgery, patient understands risk and is agreeable. Hospital Course Summary Disclaimer: The visit summary below is not to be considered part of the above Progress Note.
[2018-01-04] MEDS ORDERED: CEFTRIAXONE 1 G in NS 100 ML IV SCH (01:30)
[2018-01-04] MEDS ORDERED: PANTOPRAZOLE 40 MG TABLET PO SCH (06:30)
[2018-01-04] MEDS ORDERED: ACETAMINOPHEN 500 MG TABLET PO PRN (06:30)
--- NOTE | 2018-01-04 07:50 | Orthopedic Consult Note ---
Orthopedic Consultation HPI - Consultation Info Consult Date: 01/04/18 Attending Physician: Yennifer Maldonado MD - History of Present Illness Lisa is a pleasant 67 y/o female who was walking her dog and her dog got loose and she was trying to step on leash to keep out of road and tripped and fell on her right side with immediate pain. Presented to [facility] ED where evaluation demonstrates a right femoral neck fracture. Patient was admitted to hospitalist service with consultation to Ortho for surgical intervention. Patient has a history of RA and osteoporosis. Currently on MTX for her RA. She is on Forteo for osteoporosis. History of left tibial plateau and left femur fracture. Patient is currently being treated for UTI, otherwise denies any complaints of CP, SOA, nausea/vomiting, abdominal pain. Her right hip pain is currently controlled on pain medications. Patient currently lives at home alone. Review of Systems - Constitutional Constitutional: Absent: fever(s), dizziness - Cardiovascular Cardiovascular: Absent: chest pain, syncope - Musculoskeletal Musculoskeletal: Present: as per HPI PFSH Patient Stated Medical History Cataracts Yes: Removed 1 year ago Other Reproductive Yes: Tubal Medical History Updates: RA, osteoporosis Surgical History: tubal ligation, tibial plateua fx left tibia , right ? femur fx with ovidio and subsequent marrow infection requiring ovidio removal and at least 6 weeks of iv antibiotics, finger surgery Family History Updates: mother 83 CAD, CVA. father 92 ? cause - Social History Smoking status: Former smoker Substance use type: does not use Alcohol intake frequency: does not drink Housing: house Current occupational status: employed Current residence: Apartment/Private Home Medications Home Medications Medication Instructions Recorded Confirmed Type Ascorbic Acid [Vitamin C] 500 mg PO DAILY 01/03/18 01/03/18 History Calcium Carbonate [Calcium] 500 mg PO DAILY 01/03/18 01/03/18 History Cranberry 500 mg PO DAILY 01/03/18 01/03/18 History Duloxetine [Cymbalta] 60 mg PO DAILY 01/03/18 01/03/18 History Folic Acid [Folate] 1 mg PO DAILY 01/03/18 01/03/18 History Gabapentin 300 mg PO TID 01/03/18 01/03/18 History Methotrexate Inj [Methotrexate] 0.8 mg SQ Q7D 01/03/18 01/03/18 History Multivitamin [One Daily] 1 each PO DAILY 01/03/18 01/03/18 History Naproxen 500 mg PO BID 01/03/18 01/03/18 History Oxybutynin Chloride 5 mg PO BID 01/03/18 01/03/18 History Pantoprazole Tab [Protonix Tab] 40 mg PO ACB 01/03/18 01/03/18 History Sulfamethox/Tmp [Bactrim Ds] 1 tab PO BID 01/03/18 01/03/18 History Teriparatide [Forteo] 1 dose SQ DAILY 01/03/18 01/03/18 History Allergies Allergy/AdvReac Type Severity Reaction Status Date / Time clindamycin Allergy Unknown Verified 01/03/18 21:00 tetracycline Allergy Unknown Verified 01/03/18 21:00 hydrocodone AdvReac Unknown Confusion Verified 01/03/18 21:00 Exam - Constitutional Vital Signs: Temperature 98.0 F 01/04/18 00:25 Pulse Rate 94 01/04/18 03:31 Respiratory Rate 16 01/04/18 05:16 Blood Pressure 180/92 H 01/04/18 00:51 Pulse Oximetry 93 01/04/18 05:16 General: cooperative, no acute distress, frail appearing Nutritional Appearance: average body habitus Orientation: alert, oriented x3 - RLE General: other (Right leg shortened with internal rotation) Skin: no rashes or lesions noted Neurological: no deficits Vascular: dorsalis pedis pulse within normal limits, capillary refill <2 seconds - Respiratory Respiratory Exam: non-labored - Cardiac Cardiovascular exam: pedal pulses intact - Labs Result Diagrams: 01/04/18 04:26 01/04/18 04:26 Abnormal lab results 01/03/18 01/03/18 01/04/18 Range/Units 23:53 23:53 02:53 WBC 28.2 H* (4.5-11.0) T/MM3 RBC 3.32 L (4.00-5.20) M/MM3 Hgb 8.4 L (12-16) GM/DL Hct 27.1 L (36-46) % MCH 25.3 L (26-34) UUG MCHC (31-37) GM/DL RDW Std Deviation 65.0 H (36.9-50.2) FL Neutrophils % (Manual) 91.0 H (33-66) % Lymphocytes % (Manual) 6.0 L (23-45) % Neutrophils # (Manual) 25.7 H (1.8-7.7) T/MM3 Lymphocytes # (Manual) (1-4.8) T/MM3 BUN 28.0 H (7-17) MG/DL Creatinine 1.3 H (0.7-1.2) mg/dL Glucose 115 H (65-110) MG/DL Calcium 8.3 L (8.4-10.2) MG/DL AST 44 H (14-36) U/L Alkaline Phosphatase 132 H (38-126) U/L Total Protein 6.2 L (6.3-8.2) g/dL Urine Protein Trace A (NEGATIVE) 01/04/18 01/04/18 Range/Units 04:26 04:26 WBC 23.1 H (4.5-11.0) T/MM3 RBC 3.12 L (4.00-5.20) M/MM3 Hgb 7.8 L (12-16) GM/DL Hct 25.4 L (36-46) % MCH 25.0 L (26-34) UUG MCHC 30.7 L (31-37) GM/DL RDW Std Deviation 64.6 H (36.9-50.2) FL Neutrophils % (Manual) 90.0 H (33-66) % Lymphocytes % (Manual) 4.0 L (23-45) % Neutrophils # (Manual) 20.8 H (1.8-7.7) T/MM3 Lymphocytes # (Manual) 0.9 L (1-4.8) T/MM3 BUN 25.0 H (7-17) MG/DL Creatinine (0.7-1.2) mg/dL Glucose 119 H (65-110) MG/DL Calcium 7.9 L (8.4-10.2) MG/DL AST (14-36) U/L Alkaline Phosphatase (38-126) U/L Total Protein (6.3-8.2) g/dL Urine Protein (NEGATIVE) H & H 01/03/18 01/04/18 Range/Units 23:53 04:26 Hgb 8.4 L 7.8 L (12-16) GM/DL Hct 27.1 L 25.4 L (36-46) % Impression and Recommendation (1) Displaced fracture of right femoral neck Current visit: Yes Status: Acute Patient is currently NPO. Dr. Lopez discussed surgical treatment with right hip hemiarthroplasty, including risks and complications. Anemia-Hgb 7.8, will discuss with hospitalist about transfusion prior to surgery. Type and screen completed Hospitalist managing medically. PT/OT post-op for mobility, patient reports difficult with stairs at home. Will likely require SNU. CM for discharge planning. Hospital Course Summary Disclaimer: The visit summary below is not to be considered part of the above Progress Note.
--- NOTE | 2018-01-04 08:25 | XRay Report ---
Indication: pre op PROCEDURE: XR chest 1V: Encounter: Initial Comparison: None. Findings: There is a densely calcified granuloma in the right lung base. Heart size is normal. The lungs are clear. There is no focal opacity to suggest atelectasis or pneumonia. No mediastinal or hilar adenopathy. No pleural effusion. There is mild tortuosity of the descending thoracic aorta. There is moderate degenerative disc disease of the thoracic spine. IMPRESSION: No acute process. .
--- NOTE | 2018-01-04 08:33 | XRay Report ---
Indication: fall, pain PROCEDURE: XR hip RT min 2V: Encounter: Initial Comparison: None. Findings: There is a displaced fracture of the left femoral neck without dislocation. There is some cephalad migration of the proximal femur with external rotation. Impression: Transverse fracture across the right femoral neck, with shortening and extradural rotation. .
[2018-01-04] MEDS ORDERED: DULOXETINE 60 MG CAPSULE PO SCH (09:00)
[2018-01-04] MEDS ORDERED: POLYETHYL GLYCOL 3350 17gm PACKET PO SCH (09:00)
[2018-01-04] MEDS ORDERED: NS FLUSH BAG 500ml IV PRN (09:59)
[2018-01-04] MEDS ORDERED: FUROSEMIDE 20 MG/2 ML INJECTION IVP ONE (09:59)
[2018-01-04] MEDS: GABAPENTIN 300 MG CAPSULE PO SCH ×2 (11:32→15:08)
[2018-01-04] MEDS: HYDRALAZINE 20 MG/ML INJECTION IVP PRN ×4 (12:33→21:42)
[2018-01-04] MEDS ORDERED: VANCOMYCIN 1,000 MG INJECTION ONE (13:47)
[2018-01-04] MEDS ORDERED: FAMOTIDINE PB 20 MG/50 ML BAG IV ONE (16:43)
[2018-01-04] MEDS ORDERED: ONDANSETRON 4 MG/2 ML INJECTION IVP ONE ×2 (16:43→21:39)
[2018-01-04] MEDS ORDERED: EPINEPHrine PF 0.25 MG, BUPIVACAINE 0.25% PF 30 ML, KETOROLAC INJ 60 MG in NS 30 ML OPSITE ONE (16:43)
[2018-01-04] MEDS ORDERED: TRANEXAMIC ACID 1,000 MG in NS 100 ML IV ONE (16:43)
[2018-01-04] MEDS ORDERED: LIDOCAINE 1% (10mg/ml) 2mL INJ PF SDV ID ONE (16:43)
[2018-01-04] MEDS ORDERED: METOCLOPRAMIDE 10mg/2ml INJECTION IVP ONE (16:43)
[2018-01-04] MEDS ORDERED: CEFAZOLIN 1 G in NS 100 ML IV SCH (17:30)
[2018-01-04] MEDS ORDERED: MORPHINE SULFATE 2mg INJECTION IVP ONE (17:41)
[2018-01-04] MEDS: NOZIN NASAL SWAB NAS SCH ×4 (18:02→22:43)
[2018-01-04] MEDS ORDERED: ROPIVACAINE 0.5% (5mg/ml) 30ml INJ ONE (18:14)
[2018-01-04] MEDS ORDERED: LIDOCAINE 1% (10mg/ml) 30ml SDV INJ ONE (18:14)
[2018-01-04] MEDS ORDERED: MIDAZOLAM 2mg/2ml INJECTION IVP PRN (18:26)
[2018-01-04] MEDS ORDERED: LR 1,000 ML IV SCH (19:00)
[2018-01-04] MEDS ORDERED: PHENYLEPHRINE INJ 10 MG/ML VIAL IV ONE (19:31)
[2018-01-04] MEDS ORDERED: ONDANSETRON 4 MG/2 ML INJECTION ONE (20:00)
[2018-01-04] MEDS ORDERED: VANCOMYCIN 1,000 MG INJECTION IAR ONE (20:19)
--- NOTE | 2018-01-04 20:28 | Anesthesia Preoperative Report ---
Anesthesia Preoperative Record - Date and Time Date: 01/04/18 Preoperative Diagnosis: Rt femoral neck fracture NPO Since Date: 01/03/18 NPO Since Time: 23:00 Allergies/Adverse Reactions: Allergies Allergy/AdvReac Type Severity Reaction Status Date / Time clindamycin Allergy Unknown Verified 01/03/18 21:00 tetracycline Allergy Unknown Verified 01/03/18 21:00 hydrocodone AdvReac Unknown Confusion Verified 01/03/18 21:00 - Vital Signs Vital Signs: Temperature 97.9 F 01/04/18 17:56 Pulse Rate 102 H 01/04/18 18:55 Respiratory Rate 27 H 01/04/18 18:55 Blood Pressure 197/65 H 01/04/18 18:55 Pulse Oximetry 96 01/04/18 20:19 Height and Weight: Height 5 ft 7 in Weight 71.3 kg Body Mass Index 24.7 - Medications Inpatient Medications: Current Medications Epinephrine HCl 0.25 mg/Bupivacaine HCl 30 ml/Ketorolac Tromethamine 60 mg/ Sodium Chloride 62.25 mls @ 1 mls/hr OPSITE INTRAOP ONE; Protocol Stop: 01/07/18 06:57 Cefazolin Sodium 1 g/ Sodium (Chloride) 100 mls @ 200 mls/hr IV O ALISTAIR Last Infusion: 01/04/18 19:30 Dose: Infused Sodium Chloride (Normal Saline) 1,000 mls @ 50 mls/hr IV .Q20H ALISTAIR Last Admin: 01/04/18 18:55 Dose: 50 mls/hr Midazolam HCl (Versed) 0.5 - 1 mg IVP PRN PRN Last Admin: 01/04/18 18:48 Dose: 1 mg Vancomycin HCl (Vancocin) 1,000 mg IAR O ONE Stop: 01/04/18 20:20 Last Admin: 01/04/18 20:21 Dose: 1,000 mg Home Medications: Home Medications Medication Instructions Recorded Confirmed Type Calcium Carb/D3/Magnesium/Zinc 1 tab PO DAILY 01/04/18 01/04/18 History [Declan Mag Zinc-D3 Tablet] Docusate Sodium 100 mg PO PRN PRN 01/04/18 01/04/18 History Iron Ps Cmplx/Vit B12/FA 150 mg PO BID 01/04/18 01/04/18 History [Poly-Iron 150 Forte Capsule] Levothyroxine Sodium 100 mcg PO DAILY 01/04/18 01/04/18 History Metoprolol Succinate [Toprol Xl] 25 mg PO DAILY 01/04/18 01/04/18 History Omeprazole Magnesium [Prilosec Otc] 20 mg PO DAILY PRN 01/04/18 01/04/18 History Ropinirole HCl 3 mg PO TID 01/04/18 01/04/18 History Torsemide [Demadex] 20 mg PO DAILY 01/04/18 01/04/18 History Vit B Cmplx No3/FA/C/Biot/Zinc 1 each PO DAILY 01/04/18 01/04/18 History [Nephplex Rx Tablet] Vit D3/Folic Acid/B2/B6/B12 2,000 unit PO DAILY 01/04/18 01/04/18 History [Folgard Tablet] Is Patient on Beta Wilman?: Yes - Medical History Respiratory: DENIES: Sleep Apnea Cardiovascular: Reports: Hypertension Gastrointestional: Reports: Gastroesophageal Reflux Disease Renal/Endocrine: Reports: Other (Rheumatoid Arthritis) Other History: Reports: Other (Rheumatoid arthritis) - Surgical History HEENT Surgeries: Reports: Eye Surgery Musculoskeletal Surgery/Tx: Reports: Other (Left hand, Randy leg surgeries) Anesthesia Reactions: None Hx Family Anesthesia Reaction: No History of Motion Sickness: No - Social History Smoking Status: Former smoker Hx Chewing Tobacco Use: No Second Hand Exposure: No Substance Use Type: does not use Alcohol Intake Frequency: does not drink - Pertinent Findings Laboratory: CBC and BMP 01/04/18 15:27 01/04/18 04:26 BMP 01/03/18 01/04/18 23:53 04:26 Sodium 138 139 Potassium 4.8 4.5 Chloride 104 106 Carbon Dioxide 23 25 BUN 28.0 H 25.0 H Creatinine 1.3 H 1.1 D Glucose 115 H 119 H Calcium 8.3 L 7.9 L Liver Function 01/03/18 Range/Units 23:53 Total Bilirubin 0.60 (0.20-1.30) MG/DL AST 44 H (14-36) U/L ALT 25 (1-35) U/L Alkaline Phosphatase 132 H (38-126) U/L Albumin 3.5 (3.5-5.0) g/dL Urine 01/04/18 Range/Units 02:53 Urine Color Yellow (YELLOW) Urine Clarity Clear Urine pH 6.5 (5.0-8.0) Ur Specific [place] 1.015 (1.015-1.025) Urine Protein Trace A (NEGATIVE) Urine Glucose (UA) Negative (NEGATIVE) EKG: Sinus Tachycardia - Physical Exam Respiratory Exam: Present: lungs clear, bilateral breath sounds equal Cardiovascular Exam: Present: regular rate and rhythm - Airway Assessment Mallampati Score: II TMD: 3 Fingerbreadths Neck Extension: poor Overall Assessment: no airway concerns - ASA ASA Score: 3 - Plan Anesthesia: General Inhalation Gases Peripheral Nerve Block: Other (fascia iliaca block) - Discussion Discussion: Discussed risks/options/alternatives of anesthesia and questions answered. Patient consents. Nursing pain assessment noted. Attestation Statement: Prior to the delivery of any anesthetic medication, I examined the patient, developed the plan, obtained the patient's consent and discussed the risk and benefits of the procedure with the patient/guardian. - Additional Information Seen by Anesthesia: Yes
--- NOTE | 2018-01-04 20:32 | Anesthesia Procedure Note ---
Peripheral Nerve Blockade - Procedure Physician: Yennifer Maldonado MD Date: 01/04/18 Discussion: Discussed risks/options/alternatives of anesthesia and questions answered. Patient consents. Nursing pain assessment noted. Block Start: 18:52 Block Stop: 18:55 Block Employed: Other (fascia iliaca block) Indication: Post-Operative Pain Approach: Right Side Confirmed Position: Supine Patient: Consent, Risks/Benefits Discussed, Informed, Post Block Act. Discussed IV Sedation: Yes Midazolam (mg): 1 Initial Vital Signs: Temperature 98.6 F 01/03/18 20:49 Temperature Source Oral 01/03/18 20:49 Sepsis Recent Fever Within 48 Hours No 01/03/18 20:49 Sepsis Suspicion of Infection No 01/03/18 20:49 Sepsis New/Unexplained Change in Mental Status No 01/03/18 20:49 Sepsis Score/Level No Definite Risk 01/03/18 20:49 Sepsis Action Taken by Nursing No Action 01/03/18 20:49 Pulse Rate 114 H 01/03/18 20:49 Respiratory Rate 20 01/03/18 20:49 Blood Pressure 132/98 H 01/03/18 20:49 Blood Pressure Mean 109 01/03/18 20:49 Pulse Oximetry 95 01/03/18 20:49 Post Vital Signs: Temperature 97.9 F 01/04/18 17:56 Pulse Rate 102 H 01/04/18 18:55 Respiratory Rate 27 H 01/04/18 18:55 Blood Pressure 197/65 H 01/04/18 18:55 Pulse Oximetry 96 01/04/18 20:19 Initial Pain Pain Score: 6 Post Block Pain Score: 3 Prep: Chlorhexadine/ETOH Ultrasound Used?: Yes - Injectate Ropivacaine (%): 0.5 Ropivacaine (mL): 30 Lidocaine (%): 1 Lidocaine (mL): 30 Was Epi 1:200,000 Used?: No Injection: Injection made incrementally with constant monitoring and aspiration every 5 ml
[2018-01-04] MEDS ORDERED: DiphenhydrAMINE 25 MG CAPSULE PO PRN (22:23)
[2018-01-04] MEDS ORDERED: NON-FORMULARY MEDICATION 1 EACH EACH (Omeprazole Magnesium [Prilosec Otc] 20 MG) PO PRN (22:23)
[2018-01-04] MEDS ORDERED: SENNOSIDES 8.6 MG TABLET PO SCH (22:23)
[2018-01-04] MEDS ORDERED: DiphenhydrAMINE 50 MG/ML INJECTION IVP PRN (22:23)
[2018-01-04] MEDS ORDERED: NOZIN NASAL SWAB NAS ONE (22:23)
[2018-01-04] MEDS ORDERED: TRAMADOL 50 MG TABLET PO PRN (22:23)
--- NOTE | 2018-01-04 23:12 | Anesthesia Postoperative Note ---
- Date and Time Date: 01/04/18 Time: 22:15 - Status Patient Participated in Evaluation: Patient Participated in Person (via phone with RN) Vital Signs: Temperature 98 F 01/04/18 22:25 Pulse Rate 104 H 01/04/18 23:06 Respiratory Rate 01/04/18 22:40 Blood Pressure 135/60 01/04/18 23:06 Pulse Oximetry 91 01/04/18 23:06 Respiratory Function: Airway Patent Cardiovascular Function: Regular Pulse EKG: Sinus Rhythm Mental Status: Alert and Oriented Pain Intensity: 3 Hydration: IV Infusing Complications During Recover: None Apparent - Follow-Up Instructions Instructions: Per Surgeon
[2018-01-04] MEDS: ASPIRIN *EC* 81 MG TABLET PO SCH (23:22)
[2018-01-04] MEDS: DOCUSATE SODIUM 100 MG CAPSULE PO SCH (23:22)
[2018-01-04] MEDS: ACETAMINOPHEN 325 MG TABLET PO SCH (23:22)
[2018-01-04] MEDS: ROPINIROLE 3 MG TABLET PO SCH (23:23)
[2018-01-05] MEDS: CEFAZOLIN 1 G in NS 100 ML IV SCH ×3 (05:36→14:31)
[2018-01-05] MEDS: NOZIN NASAL SWAB NAS SCH ×2 (05:39→14:45)
[2018-01-05] MEDS ORDERED: OMEPRAZOLE 20 MG CAPSULE PO PRN (06:20)
[2018-01-05] MEDS ORDERED: LEVOTHYROXINE 100 MCG TABLET PO SCH (06:30)
--- NOTE | 2018-01-05 08:36 | XRay Report ---
Indication: postoperative image PROCEDURE: XR pelvis w/ 1 view RT hip: Encounter: Initial Comparison: 01/03/2018 Findings: The patient has undergone right hip arthroplasty with replacement of the femoral head for femoral neck fracture. The alignment appears anatomic without retained foreign body or lucency. Impression: Anatomic alignment status post right hip arthroplasty. .
[2018-01-05] MEDS ORDERED: TORSEMIDE 20 MG TABLET PO SCH (09:00)
--- NOTE | 2018-01-05 09:00 | Operative Note ---
DATE OF OPERATION 01/04/2018 PREOPERATIVE DIAGNOSIS Right hip femoral neck fracture. POSTOPERATIVE DIAGNOSIS Right hip femoral neck fracture. PROCEDURE Right hip hemiarthroplasty SURGEON Dereje Lopez MD ASSISTANT PROFESSOR OF GERMAN Mickie Foster APRN COMPLICATIONS None ANESTHESIA General DESCRIPTION OF PROCEDURE Mrs. Hein and her right hip are identified and marked in the preoperative holding area. She was brought back to the operating suite and placed supine on the operating table. She was placed under general anesthesia. She was then placed in a lateral decubitus position with the right side up on a well-padded table. The right lower extremity was then prepped and draped in my normal sterile fashion. Time-out was performed. A posterior approach was utilized. Sharp dissection was carried through the skin and subcutaneous tissue down to the muscle fascia which was then split in line with the skin incision. A Charnley retractor was placed. Short external rotators were identified. The piriformis tendon was detached and tagged. Capsulotomy was performed and femoral neck osteotomy was performed. The neck fragment was removed as well as the head piece. Head was measured on the back table and we sized the acetabulum at a 48. The proximal femur was then prepared with cookie cutter followed by reaming and then broaching to a size cemented 7 stem. We trialed with this stem with 127 degree neck and a 0 head. She had good length and excellent stability. The bone was then prepared for cementing and a cement restrictor was placed. The canal was then cleaned and dried and a cemented 7 stem was cemented into place and allowed to cure at the proper anteversion. Once the cement had cured, we trialed again with a 48-0 head which was good, so a final 48-0 head was placed and a final reduction performed after a thorough irrigation. Capsulotomy was repaired with #1 Ethibond. The piriformis tendon was also repaired with #1 Ethibond. Vancomycin powder was placed into the joint. The muscle fascia was repaired with #1 Vicryl. Subcutaneous tissues repaired with 2-0 Vicryl and the skin was closed with a running 3-0 Monocryl. Dermabond and then a sterile dressing was placed. Betadine solution was used throughout the case and also a joint cocktail for pain control that was injected throughout the soft tissues. She was then placed back into a supine position and allowed to wake from general anesthesia and taken to the recovery room under the care of Anesthesia. She tolerated the procedure well. There were no complications. RAMIRO
[2018-01-05] MEDS: ASPIRIN *EC* 81 MG TABLET PO SCH (09:33)
[2018-01-05] MEDS: ACETAMINOPHEN 325 MG TABLET PO SCH ×2 (09:33→14:30)
[2018-01-05] MEDS: ROPINIROLE 3 MG TABLET PO SCH ×2 (09:33→14:45)
[2018-01-05] MEDS: DOCUSATE SODIUM 100 MG CAPSULE PO SCH (09:33)
[2018-01-05] MEDS ORDERED: NS FLUSH BAG 500ml IV PRN (09:39)
[2018-01-05] MEDS ORDERED: FUROSEMIDE 20 MG/2 ML INJECTION IVP ONE (09:39)
--- NOTE | 2018-01-05 14:02 | Orthopedic Progress Note ---
Date: Date: 01/05/18 Time: 1357 Subjective/Severity of Illness: Lisa is sitting up in bed this morning during rounds. She is post op day 1 of Right hip hemiarthroplasty for right femoral neck fracture. She reports her pain has been well controlled with Tramadol. Denies any CP, SOA, nausea. Tolerating PO well. Hgb 7.6 this morning. Was 9.2 pre-op after 1 unit PRBC transfused yesterday. She denies any dizziness, lightheadedness or fatigue Orthopedic Exam Vital signs: Temperature 98.3 F 01/05/18 11:22 Pulse Rate 87 01/05/18 11:22 Respiratory Rate 16 01/05/18 11:22 Blood Pressure 149/73 H 01/05/18 11:22 Pulse Oximetry 92 01/05/18 11:22 - Constitutional General Appearance: Present: alert, orientated x3, cooperative - Respiratory Exam Present: CTA bilaterally, non-labored - Cardiovascular Exam Present: Regular Rate/Rhythm, pedal pulses intact - Abdominal Exam Present: soft. Absent: tenderness, distended - Extremities Exam Present: no edema, pulses intact - Dressing Dressing: dry, intact, no drainage Comments: right hip mepilex - Neurological Exam Present: intact to light touch, no deficits - Psychiatric Exam Present: alert, oriented - Labs Result Diagrams: 01/05/18 04:46 01/05/18 04:46 Abnormal lab results 01/03/18 01/04/18 01/05/18 Range/Units 23:53 15:27 04:46 Hgb 9.2 L D 7.6 L D (12-16) GM/DL Hct 24.9 L (36-46) % Chloride (98-107) MEQ/L BUN (7-17) MG/DL Calcium (8.4-10.2) MG/DL Crossmatch (AHG) See Detail 01/05/18 Range/Units 04:46 Hgb (12-16) GM/DL Hct (36-46) % Chloride 114 H D (98-107) MEQ/L BUN 20.0 H (7-17) MG/DL Calcium 7.4 L (8.4-10.2) MG/DL Crossmatch (AHG) H & H 01/03/18 01/04/18 01/04/18 Range/Units 23:53 04:26 15:27 Hgb 8.4 L 7.8 L 9.2 L D (12-16) GM/DL Hct 27.1 L 25.4 L (36-46) % 01/05/18 Range/Units 04:46 Hgb 7.6 L D (12-16) GM/DL Hct 24.9 L (36-46) % Orthopedic Assessment and Plan (1) Displaced fracture of right femoral neck Status: Acute Assessment and Plan: S/P Right hip hemiarthroplasty. Discussed with Dr. Erica MATAMOROS on hold due to Hgb. Will change to lovenox for DVT prophylaxis once hgb stable. 1 unit PRBC transfusion again today. Hospitalist managing medically. PT/OT services to improve independent function. Discharge Planning per Case Management. Hospital Course Summary Disclaimer: The visit summary below is not to be considered part of the above Progress Note.
[2018-01-05] MEDS: NS 1,000 ML IV SCH (14:16)
--- NOTE | 2018-01-05 14:53 | Discharge Summary ---
Discharge Information Date of admission: 01/03/18 23:41 Anticipated date of discharge: 01/05/18 Attending Physician: Yennifer Maldonado MD Primary care physician: Librado Baez Consults: 01/04/18 IRU Screening [Inpatient Rehab Screening] [CONS] Routine 01/04/18 00:27 Physician Consult [CONS] Routine Consulting Provider: Dereje Lopez Reason For Exam: right hip fx Ordering Provider has Notified Mechanical Facilities Technician: Yes 01/04/18 22:23 Case Management Consult [CONS] Routine Reason For Exam: Discharge Planning DME-Walker [CONS] Routine Height: 1.7 m Weight: 71.3 kg Total Joint Outpatient Therapy [CONS] Routine Comment: Remove dressing in 2 weeks - Discharge Diagnosis (1) Displaced fracture of right femoral neck Status: Acute (2) Sepsis Status: Ruled-out (3) Rheumatoid arthritis Status: Chronic (4) NAYELI (acute kidney injury) Status: Resolved (5) Osteoporosis Status: Chronic Leukocytosis with concern for sepsis, resolved Urinary incontinence with history of recurrent UTI. Elevated blood pressure without previous reported history of hypertension. - Procedures Procedures: Patient underwent right hip hemiarthroplasty procedure performed on 01/04/2018, performed by orthopedic surgeon Dr. Lopez - Laboratory Labs: 01/05/18 04:46 01/05/18 04:46 Laboratory Tests 01/03/18 01/03/18 01/04/18 23:53 23:53 02:53 WBC 28.2 H* RBC 3.32 L Hgb 8.4 L Hct 27.1 L MCV 81.6 MCH 25.3 L MCHC 31.0 RDW Std Deviation 65.0 H Plt Count 230 Neutrophils % (Manual) 91.0 H Sodium 138 Potassium 4.8 Chloride 104 Carbon Dioxide 23 Anion Gap 11 BUN 28.0 H Creatinine 1.3 H GFR Calculation 41 BUN/Creatinine Ratio 22 Glucose 115 H Calculated Osmolality 273 Calcium 8.3 L Total Bilirubin 0.60 Icterus Index < 2 AST 44 H ALT 25 Alkaline Phosphatase 132 H Total Protein 6.2 L Albumin 3.5 Globulin 2.7 Ur Collection Type Urine, cath slaughter Urine Color Yellow Urine Clarity Clear Urine pH 6.5 Ur Specific Nedrow 1.015 Urine Protein Trace A Urine Glucose (UA) Negative Urine Ketones Negative Urine Occult Blood Negative Urine Nitrate Negative Urine Bilirubin Negative Urine Urobilinogen 0.2 Ur Leukocyte Esterase Negative Urinalysis Comment Microscopic not ind. 01/04/18 01/04/18 01/04/18 04:26 04:26 15:27 WBC 23.1 H RBC 3.12 L Hgb 7.8 L 9.2 L D Hct 25.4 L MCV 81.4 MCH 25.0 L MCHC 30.7 L RDW Std Deviation 64.6 H Plt Count 223 Neutrophils % (Manual) 90.0 H Sodium 139 Potassium 4.5 Chloride 106 Carbon Dioxide 25 Anion Gap 8 BUN 25.0 H Creatinine 1.1 D GFR Calculation 49 BUN/Creatinine Ratio Glucose Calculated Osmolality Calcium Total Bilirubin Icterus Index AST ALT Alkaline Phosphatase Total Protein Albumin Globulin Ur Collection Type Urine Color Urine Clarity Urine pH Ur Specific Nedrow Urine Protein Urine Glucose (UA) Urine Ketones Urine Occult Blood Urine Nitrate Urine Bilirubin Urine Urobilinogen Ur Leukocyte Esterase Urinalysis Comment 01/05/18 04:46 WBC RBC Hgb 7.6 L D Hct 24.9 L MCV MCH MCHC RDW Std Deviation Plt Count Neutrophils % (Manual) Sodium Potassium Chloride Carbon Dioxide Anion Gap BUN Creatinine GFR Calculation BUN/Creatinine Ratio Glucose Calculated Osmolality Calcium Total Bilirubin Icterus Index AST ALT Alkaline Phosphatase Total Protein Albumin Globulin Ur Collection Type Urine Color Urine Clarity Urine pH Ur Specific Nedrow Urine Protein Urine Glucose (UA) Urine Ketones Urine Occult Blood Urine Nitrate Urine Bilirubin Urine Urobilinogen Ur Leukocyte Esterase Urinalysis Comment - Radiology Radiology: Chest x-ray portable performed on 01/03/2018 IMPRESSION: No acute process. Right hip x-ray 2 views performed on 01/03/2018 Impression: Transverse fracture across the right femoral neck, with shortening and extradural rotation. X-ray of pelvis and the right hip Impression: Anatomic alignment status post right hip arthroplasty. History of Present Illness HPI: A pleasant 67-year-old female patient of Dr. Baez who also follows up with divine healer, Dr. Menjivar was walking her dog last evening when she stepped on the leash to keep her dog from the running on the street, slipped and fell on her right side. Immediately after fall, patient noticed sharp pain in her right hip and reportedly did not even attempt to stand or bear weight. EMS was called and patient brought to emergency room where x-ray showed evidence of femoral neck fracture on the right side. Hospitalist service was contacted for admission and orthopedic surgery consulted. Patient's WBC count 23,100 this morning when compared to 28,200 last night. Hemoglobin dropped from 8.4 last night to 7.8 this morning. Patient has previous records from rheumatology clinic , labs drawn on 06/24/2016 shows WBC count 8100 with hemoglobin 10.5 and most recent labs drawn on 10/11/2017 shows WBC count of 8600 with hemoglobin of 10.4. No reported chest pain, no palpitations, no shortness of breath, no flank pain, no burning urination, no dysuria, no subjective fever, no chills, no increased sweating. Patient does report having urinary incontinence. Patient was recently started on oral Bactrim for UTI 2 days ago by PCP. Patient's urinalysis suspicious for infection, urine culture results awaited. Patient also has significant history of rheumatoid arthritis since the age of 24 years, currently on weekly injection of methotrexate on Wednesdays. Patient did try biological agents in the past however it did not agree with her. Patient also on teriparatide for osteoporosis. No reported previous history of hypertension although patient states that when she is admitted at the hospital, blood pressure noted to be high. Objective Vital signs: Temperature 98.3 F 01/05/18 11:22 Pulse Rate 87 01/05/18 11:22 Respiratory Rate 16 01/05/18 11:22 Blood Pressure 149/73 H 01/05/18 11:22 Pulse Oximetry 92 01/05/18 11:22 Height/Weight/BMI: Height 1.7 m Weight 70.2 kg Body Mass Index 24.7 - Additional findings Additional findings: General: Alert, awake, oriented x 3. In mild painful distress. Head: Pupils equal, round, reactive to light and accommodation. Positive pallor. Extraocular movements intact. Neck: No elevation in JVP. No pharyngeal erythema noted. Chest: The patient does not use accessory muscles for breathing. Lungs: Breath sounds audible on auscultation bilateral lung luna. No wheezing , no rhonchi, no crepitations, no crackles. No pleural rub. CVS: S1, S2 heard on auscultation. Normal rate and rhythm. No murmur, no S3/S4 gallops. Abdomen: Soft, nontender, no distention. Bowel sounds appreciated on auscultation. : No flank tenderness, no suprapubic distention or tenderness. Skin: No rashes, no induration, no erythema. Capillary refill less than 4 seconds. Extremities: Chronic ulnar drift with palmar flexion at the MCP joints noted in bilateral upper extremities with deformity. No evidence of pedal edema bilateral lower extremities. No calf tenderness bilaterally. Palpable dorsalis pedis and posterior tibial pulses bilateral lower extremities. Hospital Course This is a general summary of the patient's hospital course. For more details refer to the complete medical record. Hospital course: 01/04/2018 Patient admitted by hospitalist service to medical floor and orthopedic surgery consulted, patient has been evaluated by Dr. Lopez and tentative plan for surgical intervention, hemiarthroplasty procedure once medically appropriate. We 'll type, cross match and transfuse 1 unit of PRBC and recheck H&H 1 hour posttransfusion. Continue IV Rocephin 1 g daily, continue IV fluids normal saline at 100 mL per hour. IV morphine as needed for pain control. Will hold home medications methotrexate, teriparatide for now. IV hydralazine 10 mg every 4 hours as needed for systolic blood pressure greater than 160. Patient has taken aspirin 81 mg by mouth does yesterday, which does increase her risk for perioperative oozing and bleeding. Discussed with patient and her son that she may require more PRBC transfusion following surgery, patient understands risk and is agreeable. Patient status post 1 unit of PRBC transfusion, hemoglobin improved from 8.4 to 9.2, thereafter was taken for a right hip hemiarthroplasty procedure by Dr. Lopez. 01/05/2018 Hemoglobin 7.6 today. We will type, cross match and transfuse 1 unit of PRBC. Aspirin 81 mg by mouth twice a day started from last night by orthopedic surgery , has been held. Case discussed with Dr. Jessica FERNANDEZ, Mickie. We will monitor H& H 1 hour posttransfusion. Patient evaluated by IRU and accepted for skilled rehabilitation. Patient will be transferred from acute care hospital to IRU for further rehabilitation. Discussed with patient about anticoagulant options Coumadin versus Xarelto/Eliquis, patient will discuss with family and informed hospitalist service tomorrow about options. Case discussed with Quintin Mickie, recommendations from orthopedics for aspirin 81 mg by mouth twice a day for 6 weeks for postoperative DVT prophylaxis. Due to anemia, at this time all anticoagulant/antiplatelet medications held. Will monitor H&H. Hospitalist service will consult to continue patient care while in IRU Resuscitation Status: Full Code Discharge Plan - Discharge Disposition Discharge Date: 01/05/18 Disposition: 61 [place] [facility] *Condition: Improved Reason For Visit (Visit label in EMR): Rt femoral neck fracture - Discharge Medications *Discharge Medications: Continue Calcium Carb/D3/Magnesium/Zinc [Declan Mag Zinc-D3 Tablet] 1 tab PO DAILY Folic Acid [Folate] 2 tab PO DAILY Naproxen 1 tab PO Q12H Sulfamethox/Tmp [Bactrim Ds] 1 tab PO BID Gabapentin 300 mg PO TID Forteo 0.08 ml SQ DAILY Clotrimazole Merlin [Mycelex Merlin] 10 mg PO QID Duloxetine HCl [Cymbalta] 1 cap PO DAILY Pantoprazole Sodium [Protonix] 1 tab PO ACB Oxybutynin Chloride 5 mg PO TID Mv-Min/Iron/Folic/Calcium/Vitk [Women's Multivitamin Tablet] 1 each PO DAILY Methotrexate Inj [Methotrexate] 0.8 ml SQ WE Cartilage/Collagen/Bor/Hyalur [Joint Health Tablet] 1 each PO TID - Discharge Packet/Instructions *Diet: Resume normal diet as tolerated *Activity: Continue the exercises you were given in the hospital three times a day. Your therapist will provide you with a home therapy program prior to your hospital discharge. As you feel stronger, increase the number of repetitions you do in each session. Please check with us before you swim, use a whirlpool, drive or ride a bicycle *Pain Management/Treatment: Ice packs may be used, and will also help with the pain. *Wound Care: In most cases, a Mepilex dressing will be placed at the time of surgery. This dressing will not need to be covered while showering. Leave dressing in place until your follow-up appointment as long as it remains clean, dry and stuck down well around the edges. Call your Doctor if you encounter a problem with your dressing. Please avoid submerging your incision until it is completely healed, once the Mepilex dressing is removed. This includes bathtubs , swimming pools, and hot tubs. DO NOT USE ALCOHOL, PEROXIDE, OR OINTMENTS of any kind on your incision. *Expected Signs/Symptoms: Some swelling around the incision, as well as in your feet and legs is normal. To help with this, elevate your feet on a footstool when sitting in a chair, and do the ankle pumps and circles whenever you are sitting still. Muscle action helps to move collected fluid out of the tissues and improve circulation. Ice packs may be used, and will also help with the pain. Report any persistent swelling, calf tenderness, increase in pain, or pain in the calf with warmth, or redness to your doctor. *Notify Physician if: Report any complications to my office immmediately. This includes excessive bleeding, wound breakdown, redness around the wound, uncontrolled pain, or fever over 101 on 3 different measurements. Eat a balanced diet and get plenty of rest. *During Business Hours Contact: If you have any questions or concerns, please call during regular office hours ([phone]). *After Business Hours Contact: If you have any problems or need to reach a physician after hours or on the weekend please call the hospital's main number [phone] to have your physician paged. *Pending Lab/Results: No Pending Lab - IRU/GEN Discharge/Transfer - Referrals/Follow Up - Patient Handouts Patient Handouts: Blood Transfusion (GEN) - Dismissal Complete Discharge Instructions are:: Complete Physician Narrative - Narrative Attestation Narrative: Date: 01/05/18 Time: 9342
[2018-01-05] MEDS ORDERED: GLUCOSAMINE/CHONDROITIN 500 MG/400 MG CAPSULE PO SCH (15:00)
[2018-01-05] MEDS ORDERED: GABAPENTIN 300 MG CAPSULE PO SCH (15:00)
[2018-01-05 15:26] VITALS: BP 134/71; PULSE 93; RESP 20; TEMP 98.2; O2SAT 94
[2018-01-05] MEDS ORDERED: SENNOSIDES 8.6 MG TABLET PO PRN (20:54)
[2018-01-06] MEDS ORDERED: FOLIC ACID 1 MG TABLET PO SCH (09:00)
[2018-01-06] MEDS ORDERED: CALCIUM 600 + VIT D 400 TABLET PO SCH (09:00)
[2018-01-06] MEDS ORDERED: DULOXETINE 60 MG CAPSULE PO SCH (09:00)
[2018-01-06] MEDS ORDERED: MULTI-VITAMIN + MINERAL TABLET PO SCH (09:00)
[2018-01-06] MEDS ORDERED: TERIPARATIDE PO SCH (09:00)
[2018-01-06] MEDS ORDERED: BISACODYL 10 MG SUPPOSITORY RECTALLY SCH (20:00)
== END 2018-01-05 16:06 | DRG 470 ==
LOC: ED 20:45 → EDHOLD 23:41 → SRG 01-04 00:18
PROVIDERS: ADMIT Emergency Medicine; ATTEND Internal Medicine

== ENCOUNTER 2018-01-05 16:10 | Inpatient (IN) ==
[2018-01-05] MEDS ORDERED: ONDANSETRON 4 MG/2 ML INJECTION IVP PRN (16:18)
[2018-01-05] MEDS ORDERED: DiphenhydrAMINE 25 MG CAPSULE PO PRN (16:18)
[2018-01-05] MEDS ORDERED: FALL RISK - PHARMACY CONSULT MC ONE (16:27)
[2018-01-05 17:12] VITALS: BMI 24.6
[2018-01-05] MEDS: ACETAMINOPHEN 325 MG TABLET PO SCH ×2 (17:25→20:42)
[2018-01-05] MEDS ORDERED: CEFAZOLIN 1 G in NS 100 ML IV ONE (17:56)
--- NOTE | 2018-01-05 18:20 | Progress Note ---
Progress Note: Re: tx of UTI which pt was taking Bactrim for on admission--she had a dose of ceftriaxone, vanco and Kefzol during her surgical stay. After discussion with Dr. Maldonado, who also discussed case with ortho TRAFFIC ENGINEERING TECHNICIAN, will continue atbx for 24 hrs post surgery. Give Kefzol 1gm now and should need no further atbx. Labs ordered for am. Will address anticoagulation in the am. Currently on hold d/t drop in hgb.
[2018-01-05] MEDS ORDERED: NS FLUSH BAG 500ml IV PRN (19:02)
[2018-01-05] MEDS: DULOXETINE 60 MG CAPSULE PO SCH (20:42)
[2018-01-05] MEDS: GLUCOSAMINE/CHONDROITIN 500 MG/400 MG CAPSULE PO SCH (20:43)
[2018-01-05] MEDS: GABAPENTIN 300 MG CAPSULE PO SCH (20:43)
[2018-01-05] MEDS: SENNOSIDES 8.6 MG TABLET PO SCH (20:44)
[2018-01-05] MEDS: NOZIN NASAL SWAB NAS SCH ×2 (20:44→22:24)
[2018-01-06] MEDS: ACETAMINOPHEN 325 MG TABLET PO SCH ×4 (08:33→21:08)
[2018-01-06] MEDS: NOZIN NASAL SWAB NAS SCH ×3 (08:33→23:12)
[2018-01-06] MEDS: CALCIUM 600 + VIT D 400 TABLET PO SCH (08:34)
[2018-01-06] MEDS: GLUCOSAMINE/CHONDROITIN 500 MG/400 MG CAPSULE PO SCH ×3 (08:34→21:09)
[2018-01-06] MEDS: FOLIC ACID 1 MG TABLET PO SCH (08:34)
[2018-01-06] MEDS: MULTI-VITAMIN + MINERAL TABLET PO SCH (08:35)
[2018-01-06] MEDS: GABAPENTIN 300 MG CAPSULE PO SCH ×3 (08:35→21:09)
[2018-01-06] MEDS: TERIPARATIDE PO SCH (08:36)
--- NOTE | 2018-01-06 08:54 | Orthopedic Progress Note ---
Date: Date: 01/06/18 Time: 850 Subjective/Severity of Illness: Lisa is in the IRU cafeteria eating breakfast during rounds. She reports her right hip is sore, but overall doing well. Pain controlled on Tramadol. Denies any CP, SOA, nausea. Orthopedic Exam Vital signs: Temperature 98.2 F 01/06/18 08:00 Pulse Rate 94 01/06/18 08:00 Respiratory Rate 20 01/06/18 08:00 Blood Pressure 165/98 H 01/06/18 08:00 Pulse Oximetry 92 01/06/18 08:00 - Constitutional General Appearance: Present: alert, orientated x3 - Respiratory Exam Present: non-labored - Cardiovascular Exam Present: pedal pulses intact - Extremities Exam Present: pulses intact - Dressing Dressing: dry, intact, no drainage Comments: Right hip mepilex c/d/i - Neurological Exam Present: intact to light touch, no deficits - Psychiatric Exam Present: oriented - Labs Result Diagrams: 01/06/18 04:20 01/06/18 04:20 Abnormal lab results 01/06/18 01/06/18 Range/Units 04:20 04:20 WBC 12.3 H (4.5-11.0) T/MM3 RBC 3.65 L (4.00-5.20) M/MM3 Hgb 9.3 L (12-16) GM/DL Hct 29.9 L (36-46) % MCH 25.5 L (26-34) UUG RDW Std Deviation 62.4 H (36.9-50.2) FL Eosinophils % (Manual) 13.0 H (0-4) % Eosinophils # (Manual) 1.6 H (0-0.5) T/MM3 Chloride 109 H (98-107) MEQ/L BUN 20.0 H (7-17) MG/DL Calcium 8.1 L D (8.4-10.2) MG/DL H & H 01/06/18 Range/Units 04:20 Hgb 9.3 L (12-16) GM/DL Hct 29.9 L (36-46) % Orthopedic Assessment and Plan (1) Displaced fracture of right femoral neck Status: Acute Assessment and Plan: S/P Right hemiarthroplasty post op day 2. Current anti-coagulation protocol with Lovenox for VTE prophylaxis. SCD's for added protection. PT/OT services to improve independent function. Will follow patient as needed in IRU. Follow up in ortho clinic outpatient. Hospital Course Summary Disclaimer: The visit summary below is not to be considered part of the above Progress Note.
--- NOTE | 2018-01-06 09:55 | IRU 24Hr Post Admit Eval ---
24 Hr Post Admission Physical - Relevant Changes Relevant Changes: No Reviewed: I have reviewed the patient's information and concur with the finding and results of the pre-admission screen. Certification: I certify the patient for rehabilitation. - Patient Condition (1) S/P ORIF (open reduction internal fixation) fracture Status: Acute Code(s): Z96.7 - Presence of other bone and tendon implants; Z87.81 - Personal history of (healed) traumatic fracture Classification: Present on IRF Admission, IRF Tx That Should Address Diagnosis, Diagnosis Requiring Medical Follow Up (2) Acute blood loss anemia Status: Acute Code(s): D62 - Acute posthemorrhagic anemia Classification: Present on IRF Admission, IRF Tx That Should Address Diagnosis, Diagnosis Requiring Medical Follow Up (3) Leukocytosis Status: Acute Qualifiers: Leukocytosis type: leukemoid reaction Qualified Code(s): D72.823 - Leukemoid reaction Code(s): D72.829 - Elevated white blood cell count, unspecified Classification: Present on IRF Admission, IRF Tx That Should Address Diagnosis (4) Rheumatoid arthritis Status: Chronic Qualifiers: Rheumatoid arthritis location: multiple sites Rheumatoid factor presence: unspecified presence Qualified Code(s): M06.9 - Rheumatoid arthritis, unspecified Code(s): M06.9 - Rheumatoid arthritis, unspecified Classification: Present on IRF Admission, Diagnosis Requiring Medical Follow Up - Prior Functional Status Lives With: Alone Residence Type: Apartment/Private Home Assitive Devices: Four Wheeled Walker, Large Base Quad Cane, Straight Cane Prior Functional Status: Indep. at home or school, Depend. w/ IADL - Current Functional Status Current Level of Function: Currently the patient requires maximum assistance for grooming as well as toileting and transfers. She requires moderate assistance for toilet transfers and total assistance for walking with a rolling walker 15 feet. The patient normally does walk with a flexed gait at baseline due to her underlying deformity from rheumatoid arthritis. Failed Alternative Therapy: Arrived from Acute Care Patient Requirements: The patient requires oversight by rehabilitation physician to manage their rehabilitation treatment plan and multidisciplinary approach to care that can only be provided in an IRF and requires a multidisciplinary approach to care, provided by professional PTs, OTs, STs, dieticians, RTs, rehabilitation nurses and is not available in lesser levels of care. Limitations Req: Mobility Impairment, ADL Impairment Physical Therapy Minutes: 90 Occupational Therapy Minutes: 90 Therapy: The patient is to receive therapy at least 5 days a week. ROM Deficit: Right Lower Extremity, Left Lower Extremity - Complications/Comorbidities Impact on Functional Outcomes: The patient's history of underlying rheumatoid arthritis will negatively impact her functional outcome. Barriers to Discharge: Weakness, Balance, Endurance - Plan to Avoid Complications Plan to Avoid Complications: The patient cannot receive this care in a lesser intensive setting such as Detention or Outpatient Therapy due to the patient requiring the following : The patient has acute blood loss anemia requiring close monitoring of her hemoglobin as well as monitoring blood pressure to avoid hypotension from this. She has history of methotrexate usage with rheumatoid arthritis placing her at increased risk for infections. For this reason her wound needs to be monitored carefully by 24 hour rehabilitation nursing. She has history of underlying rheumatoid arthritis placing her increased fall risk. She does have elevated white blood cell count at 28,000. She has history of recent UTI and this will need to be monitored as well. She requires a multidisciplinary approach with PT and OT as well as medical supervision because of these medical issues.
[2018-01-06] MEDS: ENOXAPARIN 40 MG/0.4 ML INJECTION SQ SCH (13:31)
--- NOTE | 2018-01-06 13:55 | Consult Note ---
Consult Information - Data of Consult Consult date: 01/06/18 Requesting Physician: Woodrow Darby MD Primary Care Provider: Librado Baez - Consult Narrative Reason for consult: Medical managment History of present illness: This is a 67 yo female w/ rheumatoid arthritis who came into ED with a R femoral neck fracture following a fall when walking her dog. Dr. Lopez performed R hip hemiarthroplasty on 01/04/18. Pt did well, although she did require transfusion of 2u PRBC's having come in with a hgb of 8.4 prior to surgery. She was transferred to IRU on 01/05/18. Hospitalist service was consulted for medical management. She's had elevated BP during her stay and has received prn meds. She states she has been on lisinopril in the past for HTN, but it was DC'd b/c she ended up with low BP's. She also has recurrent UTI's and had been partially treated with Bactrim on admission. Her tx was completed during her acute stay w/ Rocephin and Kefzol. Her UA performed on admission was actually neg w/ exception of tr protein. Past Medical History Medical History Updates: RA, osteoporosis Surgical History: tubal ligation, tibial plateua fx left tibia , right ? femur fx with ovidio and subsequent marrow infection requiring ovidio removal and at least 6 weeks of iv antibiotics, finger surgery Family History: Mother 83 CAD, CVA. Father 92 ? cause Family History: As Above - Social History Smoking status: Former smoker (quit in ', prior smoked 2ppd since her 20's.) Substance use type: does not use Alcohol intake frequency: does not drink Household members: none Current occupational status: retired Current residence: Apartment/Private Home Social history: Dr Baez - PCP Pt lives in [place]. Review of Systems All systems PM: 10-point ROS was reviewed, no additional remarkable complaints except (pain in R hip) Medications Home Medications Medication Instructions Recorded Confirmed Type Calcium Carb/D3/Magnesium/Zinc 1 tab PO DAILY 01/04/18 01/05/18 History [Declan Mag Zinc-D3 Tablet] Cartilage/Collagen/Bor/Hyalur 1 each PO TID 01/05/18 01/05/18 History [Joint Health Tablet] Clotrimazole Merlin [Mycelex 10 mg PO QID 01/05/18 01/05/18 History Merlin] Duloxetine HCl [Cymbalta] 1 cap PO DAILY 01/05/18 01/05/18 History Folic Acid [Folate] 2 tab PO DAILY 01/05/18 01/05/18 History Forteo 0.08 ml SQ DAILY 01/05/18 01/05/18 History Gabapentin 300 mg PO TID 01/05/18 01/05/18 History Methotrexate Inj [Methotrexate] 0.8 ml SQ WE 01/05/18 01/05/18 History Mv-Min/Iron/Folic/Calcium/Vitk 1 each PO DAILY 01/05/18 01/05/18 History [Women's Multivitamin Tablet] Naproxen 1 tab PO Q12H 01/05/18 01/05/18 History Oxybutynin Chloride 5 mg PO TID 01/05/18 01/05/18 History Pantoprazole Sodium [Protonix] 1 tab PO ACB 01/05/18 01/05/18 History Sulfamethox/Tmp [Bactrim Ds] 1 tab PO BID 01/05/18 01/05/18 History Allergies Allergy/AdvReac Type Severity Reaction Status Date / Time clindamycin Allergy Unknown Verified 01/03/18 21:00 tetracycline Allergy Unknown Verified 01/03/18 21:00 hydrocodone AdvReac Unknown Confusion Verified 01/03/18 21:00 Exam Vital Signs: Temperature 98.2 F 01/06/18 08:00 Pulse Rate 94 01/06/18 08:00 Respiratory Rate 20 01/06/18 08:00 Blood Pressure 165/98 H 01/06/18 08:00 Pulse Oximetry 92 01/06/18 08:00 Height/Weight/BMI: Height 1.7 m Weight 71.3 kg Body Mass Index 24.6 - Constitutional Present: no acute distress, well nourished, well developed - Routine HEENT Exam Head: Present: normocephalic, atraumatic ENT: Present: mucous membranes moist, oropharynx clear - Routine Neck Exam Present: supple. Absent: lymphadenopathy - Routine Respiratory Exam Present: CTA bilaterally. Absent: wheezes - Routine Cardiovascular Exam Present: RRR, no murmur - Routine Abdominal Exam Present: soft, normoactive bowel sounds. Absent: tenderness, distended - Routine Extremities Exam Present: no edema, normal capillary refill Comments: amputation L ring finger. Arthritic deformity to fingers. - Routine Skin Exam Present: dry, warm - Routine Neurological Exam Present: alert, oriented X3, CN II-XII intact - Routine Psychiatric Exam Present: normal affect, cooperative Results - Labs CBC & Chem 7: 01/06/18 04:20 01/06/18 04:20 Assessment and Plan Assessment and Plan: Assessment S/p R hip hemiarthroplasty for R femoral neck following a fall (Dr Lopez 01/04/18 ) Rheumatoid arthritis - on methotrexate Osteoporosis Leukocytosis- present on acute and IRU admission Sepsis on acute admission to acute on 01/04/18 - resolved Anemia - present on acute and IRU admission. (S/p blood transfusions 1U 01/04, 1U 01/05) Recurrent UTI - completed tx for recent UTI 01/05/18 HTN GERD Chronic NSAID use Overactive bladder Plan Agree with admission to IRU for further strengthening and improvement in functional abilities. Start Lisinopril for elevated BP's. Pt reports she was on this in the past for her BP. Follow BMP. Hgb stable today. S/p blood transfusions 1U 01/04, 1U 01/05. Repeat CBC in am. SCD's/Lovenox for DVT ppx. On dismissal, orthopedics recommends 30 days of Lovenox from date of surgery. CM will arrange. Care to return to Dr. Baez on dismissal. DVT Prophylaxis: SCD's, Lovenox Resuscitation Status: Full Code - Physician Narrative Physician: Warren Lazaro MD Narrative: Date: 01/06/18 Time: 1603 Have independently interviewed and examined pt. Chart reviewed. Cased discussed with my PA. Above care plan developed with my supervision; agree with above. Admitted to IRU for restorative therapy following fall with right hip fracture. Did well on acute. Needed transfusions secondary to blood loss anemia. BP running high on acute. Currently, feels pain controlled well. Tolerating pain medications. Breathing well without SOA cough or congestion. No chest pressure, pain, or palpitations. Eating well. No nausea or ab pain. Bowels slow. Has been working well with therapy-challenging and tiring. Lungs: clear bilaterally CV: regular AB: soft nt/nd MSE: awake alert appropriate Plan: Agree with admission to IRU to maximize functional status. Encourage participation with therapy. Lisinopril initiated for BP control - BP still with elevation this evening so will give 1 time dose of Norvasc 2.5mg to help. Continue with pain control. Continue medications for bowel motivation, adding prn MOM and Dulcolax. Lovenox and SCD for DVT prevention. Will need to monitor hemoglobin due to anemia and leukocytosis. Recheck BMP in next several days prudent secondary to initiation of THAD inhibitor. Medically stable for IRU floor participation. Will follow along during her rehab stay. Hospital Course Summary Disclaimer: The visit summary below is not to be considered part of the above Progress Note. Hospital Course: 01/06/18 Agree with admission to IRU for further strengthening and improvement in functional abilities. Start Lisinopril for elevated BP's. Pt reports she was on this in the past for her BP. Follow BMP. Hgb stable today. S/p blood transfusions 1U 01/04, 1U 01/05. Repeat CBC in am. SCD's/Lovenox for DVT ppx. On dismissal, orthopedics recommends 30 days of Lovenox from date of surgery. CM will arrange. Care to return to Dr. Baez on dismissal.
--- NOTE | 2018-01-06 14:26 | IRU History & Physical Report ---
HPI IRU Date: Date: 01/06/18 Time: 1421 Chief complaint: I fell and broke my hip HPI: Ms. Hein is a very pleasant 67-year-old lady from [place], [place]. Referring physician is Yennifer Maldonado MD and her primary care physician is Librado Baez M.D. She normally does walk her dog but on this occasion the leash dropped from her hand. She has a history of severe rheumatoid arthritis with hand deformities. She was trying to step on the leash but unfortunately she fell on her right side. She had immediate pain involving the right hip. She is known to have history of rheumatoid arthritis and osteoporosis. She was on corticosteroids for a number of years early on but is currently on methotrexate. The patient was brought to the emergency department at [facility] on January 03, 2018 where she was admitted with an acute transverse fracture across the right femoral neck with shortening and external rotation. She was admitted to the hospitalist service and seen by Dr. Lopez in consultation. On 01/04/2018 the patient underwent right hip hemiarthroplasty by Dr. oLpez without complications. Preoperatively the patient's white count was 28,200. She does have a recent history of urinary tract infection. Her initial hemoglobin was 8.4. Her white count did decline over the next several days to a value of 23,000 on January 04 and 12,900 on January 05. Hemoglobin is 9.2. Urinalysis on 01/04/2018 was negative for evidence of infection. Clinically she met the criteria for sepsis at the time of admission although her white count elevation was likely due to the acute fracture. 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 The patient did require blood transfusions 2 due to acute blood loss anemia down to 7.6. She has also required a second unit of packed red blood cells. Prior level of functioning is as follows: She was independent for eating and grooming as well as upper and lower body dressing. She was modified independent for toileting and transfers as well as toilet transfers. She required supervision for bathing. She was modified independent for walking with a quad cane and at times a rolling walker and at times a single-point cane. She required supervision for stair climbing.The patient does normally walk with a flexed gait at baseline due to her underlying rheumatoid arthritis. At the present time the patient requires maximum assistance for grooming as well as toileting and transfers. She requires moderate assistance for toilet transfers and total assistance for walking with a rolling walker 15 feet. She has sustained multiple functional deficits due to the recent fracture. The following medical conditions are noted and require active monitoring and/or management: 1. Status post open reduction internal fixation with right hip hemiarthroplasty following fracture 2. Acute blood loss anemia which has thus far required 2 units of packed red blood cells 3. History of long-standing rheumatoid arthritis on methotrexate treatment placing her at increased risk for infection. 4. Benign essential hypertension The following therapies will be needed: 1. Physical therapy: for transfers and ambulation and stairs. 2. Occupational therapy: for ADL's and transfers. 3. Medical management: for the above conditions. 4. 24 hour Rehabilitation Nursing to monitor and address the following: Close monitoring of further evidence of acute blood loss with close monitoring of blood pressures and pulse. She requires wound monitoring in view of the use of methotrexate which places her at increased risk for infection. [facility] Patient Stated Medical History Cataracts Yes: Removed 1 year ago Hypertension Yes Sleep Apnea No Constipation No Gastroesophageal Reflux Yes Disease Hx Incontinence No Other Yes: Rheumatoid arthritis Other Reproductive Yes: Tubal Medical History Updates: RA, osteoporosis Surgical History: tubal ligation, tibial plateua fx left tibia , right ? femur fx with ovidio and subsequent marrow infection requiring ovidio removal and at least 6 weeks of iv antibiotics, finger surgery Family History Updates: mother 83 CAD, CVA. father 92 ? cause - Social History Smoking status: Former smoker (Smoked 2 PPD from age 19 through age 55) Packs per day: 2 Packs-years: 71 second hand exposure: No Substance use type: does not use Alcohol intake: never Alcohol intake frequency: does not drink Housing: house Current occupational status: employed Does patient use chewing tobacco?: No Current residence: Apartment/Private Home Social history: Ms. Hein is a . 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 Review of Systems - Constitutional Constitutional: Present: fatigue. Absent: anorexia, chills, fever(s), headache( s), lethargy, malaise, night sweats, weakness, weight gain, weight loss - EEMIT Eyes: Absent: blurry vision, change in vision, diplopia Mouth/Throat: Absent: changes in swallowing, painful swallowing, change in taste , bleeding gums, change in voice - Cardiovascular Cardiovascular: Present: dyspnea on exertion. Absent: chest pain, palpitations , syncope, orthopnea, edema, cyanosis, heart murmur Rhythm: Present: regular rhythm Vascular: Absent: intermittent claudication, pedal edema, unilateral swelling - Respiratory Respiratory: Present: dyspnea, dyspnea on exertion. Absent: cough, hemoptysis, wheezing, pain on inspiration, chest congestion, excessive phlegm production - Gastrointestinal Gastrointestinal: Absent: abdominal pain, change in bowel habits, constipation, diarrhea, dyspepsia, dysphagia, early satiety, hematochezia, melena, nausea, vomiting - Musculoskeletal Musculoskeletal: Present: arthralgias, deformity, limited range of motion ( multiple joints, debora hand/finger joints). Absent: abnormal gait, back pain, joint swelling, muscle weakness - Integumentary/Breasts Integumentary: Absent: alopecia, erythema, lesions, pruritus, rash, jaundice - Neurological Neurological: Absent: abnormal gait, abnormal movements, abnormal speech, confusion, convulsions, dizziness, focal weakness, frequent falls, headache(s), loss of vision, memory loss, numbness, paresthesias, tremor(s) - Psychiatric Psychiatric: Absent: abnormal sleep pattern, anxiety, depression - Endocrine Endocrine: Absent: cold intolerance, flushing, heat intolerance, palpitations - Hematologic/Lymphatic Hematologic/Lymphatic: Absent: easy bleeding, easy bruising, lymphadenopathy - Allergic/Immunologic Allergic/Immunologic: Absent: urticaria Medications Home Medications Medication Instructions Recorded Confirmed Type Calcium Carb/D3/Magnesium/Zinc 1 tab PO DAILY 01/04/18 01/05/18 History [Declan Mag Zinc-D3 Tablet] Cartilage/Collagen/Bor/Hyalur 1 each PO TID 01/05/18 01/05/18 History [Joint Health Tablet] Clotrimazole Merlin [Mycelex 10 mg PO QID 01/05/18 01/05/18 History Merlin] Duloxetine HCl [Cymbalta] 1 cap PO DAILY 01/05/18 01/05/18 History Folic Acid [Folate] 2 tab PO DAILY 01/05/18 01/05/18 History Forteo 0.08 ml SQ DAILY 01/05/18 01/05/18 History Gabapentin 300 mg PO TID 01/05/18 01/05/18 History Methotrexate Inj [Methotrexate] 0.8 ml SQ WE 01/05/18 01/05/18 History Mv-Min/Iron/Folic/Calcium/Vitk 1 each PO DAILY 01/05/18 01/05/18 History [Women's Multivitamin Tablet] Naproxen 1 tab PO Q12H 01/05/18 01/05/18 History Oxybutynin Chloride 5 mg PO TID 01/05/18 01/05/18 History Pantoprazole Sodium [Protonix] 1 tab PO ACB 01/05/18 01/05/18 History Sulfamethox/Tmp [Bactrim Ds] 1 tab PO BID 01/05/18 01/05/18 History Allergies Allergy/AdvReac Type Severity Reaction Status Date / Time clindamycin Allergy Unknown Verified 01/03/18 21:00 tetracycline Allergy Unknown Verified 01/03/18 21:00 hydrocodone AdvReac Unknown Confusion Verified 01/03/18 21:00 Results IRU - Labs Labs: I have reviewed acute care records. Exam Vital Signs: Temperature 98.2 F 01/06/18 08:00 Pulse Rate 94 01/06/18 08:00 Respiratory Rate 20 01/06/18 08:00 Blood Pressure 165/98 H 01/06/18 08:00 Pulse Oximetry 92 01/06/18 08:00 Height/Weight/BMI: Height 1.7 m Weight 71.3 kg Body Mass Index 24.6 - Constitutional Present: no acute distress, well nourished, well developed, average body habitus , cooperative - Routine HEENT Exam Head: Present: normocephalic, atraumatic. Absent: cushingoid faces, abrasion, laceration, hematoma Eye: Present: EOMI, PERRL. Absent: conjunctival icterus, scleral injection, periorbital swelling, nystagmus ENT: Present: mucous membranes dry, oropharynx clear - Routine Neck Exam Present: supple, full ROM, trachea midline. Absent: lymphadenopathy, thyromegaly, tenderness, swelling - Routine Chest/Breast/Axilla Exam Chest wall: Absent: tenderness, mass Axillae: Absent: lymphadenopathy, mass - Routine Respiratory Exam Present: decreased breath sounds, CTA bilaterally. Absent: accessory muscle use , prolonged expiratory phase, rales, respiratory distress, rhonchi, stridor, wheezes, crackles, distant breath sounds - Routine Cardiovascular Exam Present: RRR, S1, S2, no murmur. Absent: gallop, S3, S4, click, irregular rhythm - Routine Abdominal Exam Present: soft, normoactive bowel sounds, non distended, non tender. Absent: rebound, guarding, firm, rigid, organomegaly, mass, hernia, wound - Routine Extremities Exam Present: no edema, non tender, pulses intact, normal capillary refill. Absent: cyanosis, clubbing Comments: This patient has multiple joint deformities including evidence of altered deviation in the hands and finger joints. - Routine Back/Spine/Pelvis Exam Back/Spine: Absent: full ROM, scoliosis, kyphosis - Routine Skin Exam Present: intact, dry, warm. Absent: cyanosis, erythema, pallor, mottling, petechiae, urticaria, lesions, jaundice - Routine Neurological Exam Present: alert, oriented X3, CN II-XII intact, moving all extremities, normal speech - Routine Psychiatric Exam Present: normal affect, normal thought process, cooperative, good insight, good judgment. Absent: depressed, anxious Sepsis Assessment - Evaluation Severe Sepsis: none seen IRU A/P (1) S/P ORIF (open reduction internal fixation) fracture Current visit: Yes Status: Acute Patient has fractured the right hip and is now status post hemiarthroplasty. She is an appropriate candidate for inpatient rehabilitation for both PT and OT in view of her multiple functional deficits. (2) Acute blood loss anemia Current visit: Yes Status: Acute She has required 2 units of packed red blood cells to date. We will continue to monitor her hemoglobin and respond appropriately. (3) Leukocytosis Qualifiers: Leukocytosis type: leukemoid reaction Qualified Code(s): D72.823 - Leukemoid reaction Current visit: Yes Status: Acute Her elevated white blood cell count has come down but continues to be slightly elevated. No current evidence of active infection is seen however. We will continue to monitor the wound as well as other evidence for infection. (4) Rheumatoid arthritis Qualifiers: Rheumatoid factor presence: unspecified presence Current visit: No Status: Chronic DVT Prophylaxis: SCD's Resuscitation Status: Full Code - Course Hospital Course: Woodrow Darby MD: - Interventions to Obtain Goals PT Treatment Plan: Balance/Proprioception, Functional Activities, Gait Training , Patient/Family Education, Therapeutic Exercise OT Treatment Plan: ADL (Basic Care), IADL, Pt./Family Education, UE Functional Training Goals Progress/Modifications: This patient has underlying history of rheumatoid arthritis. Initially she was on corticosteroids for a number of years and more recently has been on methotrexate. Unfortunately, she lost her balance while walking her dog resulting in a fall and a right hip fracture. I discussed with orthopedics and they recommend Lovenox which will be continued at present. In addition the patient has had acute blood loss anemia which has required 2 units of packed red blood cells. We will monitor for evidence of further bleeding. She has had some dyspnea at times but overall this is felt to be stable. She is on room air at the present time.
[2018-01-06] MEDS ORDERED: BISACODYL 10 MG SUPPOSITORY RECTALLY PRN (15:47)
[2018-01-06] MEDS ORDERED: AMLODIPINE 2.5 MG TABLET PO ONE (16:02)
[2018-01-06] MEDS: LISINOPRIL 10 MG TABLET PO SCH (16:55)
[2018-01-06] MEDS ORDERED: BISACODYL 10 MG SUPPOSITORY RECTALLY SCH (20:00)
[2018-01-06] MEDS: DULOXETINE 60 MG CAPSULE PO SCH (21:08)
[2018-01-06] MEDS: SENNOSIDES 8.6 MG TABLET PO SCH (21:09)
[2018-01-07] MEDS: NOZIN NASAL SWAB NAS SCH ×4 (05:54→22:16)
[2018-01-07] MEDS: TRAMADOL 50 MG TABLET PO PRN (05:54)
[2018-01-07] MEDS: FOLIC ACID 1 MG TABLET PO SCH (08:40)
[2018-01-07] MEDS: ENOXAPARIN 40 MG/0.4 ML INJECTION SQ SCH (08:41)
[2018-01-07] MEDS: CALCIUM 600 + VIT D 400 TABLET PO SCH (08:43)
[2018-01-07] MEDS: GLUCOSAMINE/CHONDROITIN 500 MG/400 MG CAPSULE PO SCH ×3 (08:43→20:32)
[2018-01-07] MEDS: LISINOPRIL 10 MG TABLET PO SCH (08:43)
[2018-01-07] MEDS: SENNOSIDES 8.6 MG TABLET PO PRN (08:44)
[2018-01-07] MEDS: GABAPENTIN 300 MG CAPSULE PO SCH ×3 (08:44→20:31)
[2018-01-07] MEDS: ACETAMINOPHEN 325 MG TABLET PO SCH ×4 (08:45→20:30)
[2018-01-07] MEDS: MULTI-VITAMIN + MINERAL TABLET PO SCH (08:45)
[2018-01-07] MEDS: TERIPARATIDE PO SCH (09:13)
--- NOTE | 2018-01-07 09:56 | Orthopedic Progress Note ---
Date: Date: 01/07/18 Time: 953 Subjective/Severity of Illness: Lisa is in the cafeteria this morning during rounds. She reports her right hip pain has been well controlled overall. Some soreness when working with PT. Denies any other concerns. Hgb stable at 9.1 Orthopedic Exam Vital signs: Temperature 98.2 F 01/06/18 08:00 Pulse Rate 94 01/06/18 08:00 Respiratory Rate 20 01/06/18 08:00 Blood Pressure 165/98 H 01/06/18 08:00 Pulse Oximetry 92 01/06/18 08:00 - Constitutional General Appearance: Present: alert, orientated x3 - Respiratory Exam Present: non-labored - Cardiovascular Exam Present: pedal pulses intact - Extremities Exam Present: no edema, normal capillary refill - Dressing Dressing: dry, intact, no drainage - Neurological Exam Present: intact to light touch, no deficits - Psychiatric Exam Present: oriented - Labs Result Diagrams: 01/07/18 04:21 01/06/18 04:20 Abnormal lab results 01/07/18 Range/Units 04:21 WBC 11.9 H (4.5-11.0) T/MM3 RBC 3.56 L (4.00-5.20) M/MM3 Hgb 9.1 L (12-16) GM/DL Hct 29.2 L (36-46) % MCH 25.6 L (26-34) UUG RDW Std Deviation 62.5 H (36.9-50.2) FL H & H 01/06/18 01/07/18 Range/Units 04:20 04:21 Hgb 9.3 L 9.1 L (12-16) GM/DL Hct 29.9 L 29.2 L (36-46) % Orthopedic Assessment and Plan (1) Displaced fracture of right femoral neck Status: Acute Assessment and Plan: S/P Right hemiarthroplasty post op day 3 Current anti-coagulation protocol with Lovenox for VTE prophylaxis. SCD's for added protection. PT/OT services to improve independent function. Will follow patient as needed in IRU. Follow up in ortho clinic outpatient. Hospital Course Summary Disclaimer: The visit summary below is not to be considered part of the above Progress Note. Hospital Course: 01/06/18 Agree with admission to IRU for further strengthening and improvement in functional abilities. Start Lisinopril for elevated BP's. Pt reports she was on this in the past for her BP. Follow BMP. Hgb stable today. S/p blood transfusions 1U 01/04, 1U 01/05. Repeat CBC in am. SCD's/Lovenox for DVT ppx. On dismissal, orthopedics recommends 30 days of Lovenox from date of surgery. CM will arrange. Care to return to Dr. Baez on dismissal.
--- NOTE | 2018-01-07 11:39 | IRU Progress Note ---
- Subjective/Serverity of Illness Date: 01/07/18 Ms. Hein was reassessed in her room on inpatient rehabilitation. She is cooperative with therapy. She complains of pain primarily from her rheumatoid arthritis. This is present in both knees and ankles and feet predominantly. It is less of a problem in her hands although she has a lot of deformity in her hands. She had questions about the prosthesis etc. and I attempted to explain that and showed her a picture of that. She would like to have a copy of the images for her records and this will be provided. I contacted x-ray in this regard. From a therapy standpoint she is doing quite well. She requires minimum assistance for bathing and moderate assistance with assistive devices for upper and lower body dressing. Rheumatoid arthritis limits her progress. For physical therapy the patient requires minimum assistance for transfers. She is able to ambulate 110 feet with a front-wheeled walker with maximum assistance. Currently no evidence of infection with regard to the use of methotrexate which has been held due to the surgery. Hemoglobin stable at 9.1 g percent. Previously was 9.3. Exam Vital Signs: Temperature 98.1 F 01/07/18 08:00 Pulse Rate 96 01/07/18 08:00 Respiratory Rate 18 01/07/18 08:00 Blood Pressure 135/71 01/07/18 08:00 Pulse Oximetry 95 01/07/18 08:00 Height/Weight/BMI: Height 1.7 m Weight 71.3 kg Body Mass Index 24.6 - Constitutional Present: mild distress (RA pain in knees and ankles), well nourished, well developed, cooperative - Routine HEENT Exam Eye: Present: EOMI ENT: Present: mucous membranes moist, oropharynx clear - Routine Respiratory Exam Present: CTA bilaterally. Absent: wheezes - Routine Cardiovascular Exam Present: RRR, S1, S2. Absent: murmur - Routine Abdominal Exam Present: soft, normoactive bowel sounds, non distended. Absent: tenderness - Routine Extremities Exam Present: normal capillary refill Comments: Deformities consistent with long-standing rheumatoid arthritis noted in the upper extremities with ulnar deviation etc. - Routine Skin Exam Present: dry, warm - Routine Neurological Exam Present: alert, oriented X3, CN II-XII intact - Routine Psychiatric Exam Present: normal affect, normal thought process, cooperative, good insight, good judgment IRU A/P (1) S/P ORIF (open reduction internal fixation) fracture Current visit: Yes Status: Acute Patient reports pain in the hip is adequately controlled. She does complain of pain in her ankles and knees related to her long-standing rheumatoid arthritis. Methotrexate has been held. No evidence of infection. (2) Acute blood loss anemia Current visit: Yes Status: Acute Hemoglobin reviewed and is stable. (3) Leukocytosis Qualifiers: Leukocytosis type: leukemoid reaction Qualified Code(s): D72.823 - Leukemoid reaction Current visit: Yes Status: Acute Her white count is improved at 11,000. (4) Rheumatoid arthritis Qualifiers: Rheumatoid arthritis location: multiple sites Rheumatoid factor presence: unspecified presence Qualified Code(s): M06.9 - Rheumatoid arthritis, unspecified Current visit: No Status: Chronic Patient is experiencing discomfort in her joints related to her long-standing rheumatoid arthritis. She is off methotrexate this should be held until adequate healing has been confirmed typically 6-8 weeks or so. DVT Prophylaxis: SCD's, Lovenox Resuscitation Status: Full Code - Course Hospital Course: Woodrow Darby MD: 01/07/18 11:41 Cooperative with therapy. Pain adequately controlled overall. Anemia stable at 9.1 g percent. - Interventions to Obtain Goals PT Treatment Plan: Balance/Proprioception, Functional Activities, Gait Training , Patient/Family Education, Therapeutic Exercise OT Treatment Plan: ADL (Basic Care), IADL, Pt./Family Education, UE Functional Training Goals Progress/Modifications: Patient education was provided with regard to the prosthesis placed. Answered multiple questions in this regard. She is cooperative with therapy. I have arranged for a CD to be made of her images regarding the hip at her request. She is pleased with her progress in her status. Hemoglobin is stable at 9.1.
--- NOTE | 2018-01-07 13:30 | IRU Plan of Care ---
[facility] Overall Plan of Care - Date Date: 01/07/18 - Patient Impairments (1) S/P ORIF (open reduction internal fixation) fracture Code(s): Z96.7 - Presence of other bone and tendon implants; Z87.81 - Personal history of (healed) traumatic fracture Status: Acute Classification: Present on IRF Admission, IRF Tx That Should Address Diagnosis, Diagnosis Requiring Medical Follow Up (2) Acute blood loss anemia Code(s): D62 - Acute posthemorrhagic anemia Status: Acute Classification: Present on IRF Admission, IRF Tx That Should Address Diagnosis, Diagnosis Requiring Medical Follow Up (3) Leukocytosis Qualifiers: Leukocytosis type: leukemoid reaction Qualified Code(s): D72.823 - Leukemoid reaction Code(s): D72.829 - Elevated white blood cell count, unspecified Status: Acute Classification: Present on IRF Admission, IRF Tx That Should Address Diagnosis (4) Rheumatoid arthritis Qualifiers: Rheumatoid arthritis location: multiple sites Rheumatoid factor presence: unspecified presence Qualified Code(s): M06.9 - Rheumatoid arthritis, unspecified Code(s): M06.9 - Rheumatoid arthritis, unspecified Status: Chronic Classification: Present on IRF Admission, Diagnosis Requiring Medical Follow Up - Relevant Changes Relevant Changes: No Reviewed: I have reviewed the patient's information and concur with the finding and results of the pre-admission screen. Certification: I certify the patient for rehabilitation. - Medical Prognosis Medical Prognosis: Good Vital Signs: Last Vital Signs Temp 98.1 F 01/07/18 08:00 Pulse 96 01/07/18 08:00 Resp 18 01/07/18 08:00 BP 135/71 01/07/18 08:00 Pulse Ox 95 01/07/18 08:00 - Anticipated Interventions Anticipated Interventions: The patient requires inpatient IRF care for PT, OT, and/or ST for residuals remaining from hip fracture and repair resulting in muscular weakness and strength deficits. An individualized overall plan of care has been developed after careful review of the patient's preadmission screening, post admission physician evaluation and assessments of all therapy disciplines and/or other pertinent clinicians involved in treating the patient. This indicates medical necessity and rehabilitation necessity have been established through a thorough review of all available medical information. ROM Deficit: Right Lower Extremity - Current Functional Status Failed Alternative Therapy: Arrived from Acute Care Patient Requires: The patient requires oversight by rehabilitation physician to manage their rehabilitation treatment plan and multidisciplinary approach to care that can only be provided in an IRF and requires a multidisciplinary approach to care, provided by professional PTs, OTs, STs, rehabilitation nurses, and may require STs, dieticians, and RTS. This is not available in lesser levels of care. Physical Therapy Minutes: 90 Occupational Therapy Minutes: 90 Therapy: The patient is to receive therapy at least 5 days a week. - Anticipated LOS/Outcomes Anticipated Functional Outcome: It is anticipated the patient will be able to return to her home environment with modified independent level of functioning for ambulation, transfers and ADLs. Anticipated Length of Stay (days): 7 Anticipated DC Destination: Home, Self Care, Home Health Service Home Safety Plan: The patient will be provided with the development of a Home Safety Plan for return to a home or home-like environment and and to ensure safety post discharge. - Plan to Avoid Complications Barriers to Attaining Goals: Weakness, Pain Control Plan to Avoid Complications: The patient cannot receive this care in a lesser intensive setting such as Halfway or Outpatient Therapy due to the patient requiring the following : This patient has experienced acute blood loss anemia as well as having been on methotrexate for a time due to her rheumatoid arthritis. She requires close nursing monitoring to ensure no further evidence of acute blood loss, monitor blood pressures and assure adequate pain control. Methotrexate has been discontinued but she is at risk for wound infection because she was on this previously. She requires a multidisciplinary approach with PT and OT and medical supervision in view of these medical issues.
[2018-01-07] MEDS: DULOXETINE 60 MG CAPSULE PO SCH (20:31)
[2018-01-07] MEDS: SENNOSIDES 8.6 MG TABLET PO SCH (20:31)
[2018-01-08] MEDS: TRAMADOL 50 MG TABLET PO PRN (03:07)
[2018-01-08] MEDS: NOZIN NASAL SWAB NAS SCH ×3 (06:13→21:13)
[2018-01-08] MEDS: FOLIC ACID 1 MG TABLET PO SCH (09:12)
[2018-01-08] MEDS: GLUCOSAMINE/CHONDROITIN 500 MG/400 MG CAPSULE PO SCH ×3 (09:12→21:11)
[2018-01-08] MEDS: CALCIUM 600 + VIT D 400 TABLET PO SCH (09:12)
[2018-01-08] MEDS: GABAPENTIN 300 MG CAPSULE PO SCH ×3 (09:12→21:11)
[2018-01-08] MEDS: ACETAMINOPHEN 325 MG TABLET PO SCH ×4 (09:13→21:10)
[2018-01-08] MEDS: LISINOPRIL 10 MG TABLET PO SCH (09:13)
[2018-01-08] MEDS: MULTI-VITAMIN + MINERAL TABLET PO SCH (09:13)
[2018-01-08] MEDS: ENOXAPARIN 40 MG/0.4 ML INJECTION SQ SCH (09:14)
[2018-01-08] MEDS: TERIPARATIDE PO SCH (09:14)
[2018-01-08] MEDS: DULOXETINE 60 MG CAPSULE PO SCH (21:11)
[2018-01-08] MEDS: SENNOSIDES 8.6 MG TABLET PO SCH (21:12)
[2018-01-09] MEDS: TRAMADOL 50 MG TABLET PO PRN ×2 (00:28→06:29)
[2018-01-09] MEDS: NOZIN NASAL SWAB NAS SCH ×3 (06:30→21:28)
[2018-01-09] MEDS: GABAPENTIN 300 MG CAPSULE PO SCH ×3 (08:54→21:26)
[2018-01-09] MEDS: CALCIUM 600 + VIT D 400 TABLET PO SCH (08:54)
[2018-01-09] MEDS: FOLIC ACID 1 MG TABLET PO SCH (08:55)
[2018-01-09] MEDS: GLUCOSAMINE/CHONDROITIN 500 MG/400 MG CAPSULE PO SCH ×3 (08:55→21:26)
[2018-01-09] MEDS: OMEPRAZOLE 20 MG CAPSULE PO PRN (08:55)
[2018-01-09] MEDS: LISINOPRIL 10 MG TABLET PO SCH (08:55)
[2018-01-09] MEDS: ACETAMINOPHEN 325 MG TABLET PO SCH ×4 (08:59→21:25)
[2018-01-09] MEDS: ENOXAPARIN 40 MG/0.4 ML INJECTION SQ SCH (08:59)
[2018-01-09] MEDS: MULTI-VITAMIN + MINERAL TABLET PO SCH (08:59)
[2018-01-09] MEDS: TERIPARATIDE PO SCH (09:00)
--- NOTE | 2018-01-09 15:34 | Progress Note ---
- Date 01/09/18 Subjective: Lisa is seen today while sitting in her wheelchair, in her room, working on her computer. She reports she is doing good and denies any complaints. No chest pain, shortness of breath, abdominal pain, nausea, vomiting or diarrhea. She does request to have a UA done though she denies any current urinary symptoms or concerns. She states that she had a recurrent UTI last year while she was in rehab and wants to monitor closely for repeat UTI. She remains afebrile. Blood pressure remains slightly elevated. Lisinopril was initiated on 01/04 with some improvement. Labs are unremarkable. Hemoglobin stable. Objective Vital signs: Temperature 98.5 F 01/09/18 08:00 Pulse Rate 85 01/09/18 08:00 Respiratory Rate 16 01/09/18 08:00 Blood Pressure 155/83 H 01/09/18 08:00 Pulse Oximetry 95 01/09/18 08:00 Height/Weight/BMI: Height 5 ft 7 in Weight 157 lb 3.033 oz Body Mass Index 24.6 Comments: sitting in her wheelchair, working on her computer. - Constitutional Present: no acute distress, well nourished, well developed, cooperative - Routine HEENT Exam Head: Present: normocephalic, atraumatic Eye: Present: PERRL. Absent: conjunctival icterus ENT: Present: mucous membranes moist, oropharynx clear - Routine Respiratory Exam Present: CTA bilaterally. Absent: respiratory distress, wheezes - Routine Cardiovascular Exam Present: RRR - Routine Abdominal Exam Present: soft, normoactive bowel sounds, non distended, non tender - Routine Extremities Exam Present: no edema, pulses intact - Routine Back/Spine/Pelvis Exam Back/Spine: Absent: vertebral tenderness - Routine Musculoskeletal Exam Musculoskeletal: Present: no clubbing or cyanosis - Routine Skin Exam Present: dry, warm Comments: Afebrile. - Routine Neurological Exam Present: alert, oriented X3, hearing grossly intact, normal speech - Routine Lymphatic Exam Lymphatic: Absent: lymphedema - Routine Psychiatric Exam Present: cooperative Results - Labs CBC & Chem 7: 01/09/18 04:37 01/09/18 04:37 Assessment and Plan (1) S/P ORIF (open reduction internal fixation) fracture Current visit: Yes Status: Acute Assessment and Plan: Assessment S/p R hip hemiarthroplasty for R femoral neck following a fall (Dr Lopez 01/04/18 ) Rheumatoid arthritis - on methotrexate Osteoporosis Leukocytosis- present on acute and IRU admission Sepsis on acute admission to acute on 01/04/18 - resolved Anemia - present on acute and IRU admission. (S/p blood transfusions 1U 01/04, 1U 01/05) Recurrent UTI - completed tx for recent UTI 01/05/18 HTN GERD Chronic NSAID use Overactive bladder Plan Overall, patient is doing well. Pain is well controlled. Continue therapies and pain control per Dr. Darby. Patient reports previous issue with UTI while in rehab a year ago and requests UA. Denies symptoms. Afebrile. WBC stable. Will obtain UA for evaluation and baseline. Blood pressure remains elevated, though improved since initiation of lisinopril on 01/04/18. Continue to monitor closely. May need additional treatment. Hemoglobin remains stable. Monitor closely. S/p blood transfusions 1U 01/04, 1U 01/05. DVT Prophylaxis: SCD's, Lovenox Resuscitation Status: Full Code - Time spent with patient Time with patient PN: 30 minutes - Physician Narrative Physician: Warren Lazaro MD Narrative: Date: 01/09/18 Time: 1531 Hospital Course Summary Disclaimer: The visit summary below is not to be considered part of the above Progress Note. Hospital Course: 01/06/18 Agree with admission to IRU for further strengthening and improvement in functional abilities. Start Lisinopril for elevated BP's. Pt reports she was on this in the past for her BP. Follow BMP. Hgb stable today. S/p blood transfusions 1U 01/04, 1U 01/05. Repeat CBC in am. SCD's/Lovenox for DVT ppx. On dismissal, orthopedics recommends 30 days of Lovenox from date of surgery. CM will arrange. Care to return to Dr. Baez on dismissal. 01/09/18 Overall, patient is doing well. Pain is well controlled. Continue therapies and pain control per Dr. Darby. Patient reports previous issue with UTI while in rehab a year ago and requests UA. Denies symptoms. Afebrile. WBC stable. Will obtain UA for evaluation and baseline. Blood pressure remains elevated, though improved since initiation of lisinopril on 01/04/18. Continue to monitor closely. May need additional treatment. Hemoglobin remains stable. Monitor closely. S/p blood transfusions 1U 01/04, 1U 01/05.
[2018-01-09] MEDS: DULOXETINE 60 MG CAPSULE PO SCH (21:25)
[2018-01-09] MEDS: SENNOSIDES 8.6 MG TABLET PO SCH (21:29)
[2018-01-10] MEDS: TRAMADOL 50 MG TABLET PO PRN ×3 (01:20→21:10)
[2018-01-10] MEDS: CALCIUM 600 + VIT D 400 TABLET PO SCH (08:55)
[2018-01-10] MEDS: LISINOPRIL 10 MG TABLET PO SCH (08:56)
[2018-01-10] MEDS: SENNOSIDES 8.6 MG TABLET PO PRN (08:56)
[2018-01-10] MEDS: FOLIC ACID 1 MG TABLET PO SCH (08:56)
[2018-01-10] MEDS: GLUCOSAMINE/CHONDROITIN 500 MG/400 MG CAPSULE PO SCH ×3 (08:56→21:10)
[2018-01-10] MEDS: GABAPENTIN 300 MG CAPSULE PO SCH ×3 (08:57→21:10)
[2018-01-10] MEDS: ACETAMINOPHEN 325 MG TABLET PO SCH ×4 (08:57→23:18)
[2018-01-10] MEDS: ENOXAPARIN 40 MG/0.4 ML INJECTION SQ SCH (08:59)
[2018-01-10] MEDS: TERIPARATIDE PO SCH (09:01)
--- NOTE | 2018-01-10 12:00 | IRU Progress Note ---
- Subjective/Serverity of Illness Date: 01/10/18 Lisa was reassessed in her room. She continues to have her rheumatoid arthritis pain involving the knees and ankles. We discussed holding her methotrexate in view of wound healing. I told her that she should check with her progressive care nurse to see how long that should be held. My thought would be that should be held at least 6 weeks. She reports there is some increased pain in the hip but overall she is doing reasonably well in this regard. She denies any chest pain or shortness of breath. Her hemoglobin has remained stable after the transfusion of the 2 units while on acute care. Therapy notes reviewed. She is able to perform upper and lower body dressing with moderate assistance. Transfers were with minimum assistance for both PT and OT. She is able to ambulate 112 feet with moderate assistance with a front- wheeled walker. Exam Vital Signs: Temperature 98.2 F 01/10/18 08:00 Pulse Rate 80 01/10/18 08:00 Respiratory Rate 19 01/10/18 08:00 Blood Pressure 126/76 01/10/18 08:00 Pulse Oximetry 99 01/10/18 08:00 Height/Weight/BMI: Height 1.7 m Weight 71.3 kg Body Mass Index 24.6 - Constitutional Present: no acute distress, well nourished, well developed, cooperative - Routine HEENT Exam Eye: Present: EOMI ENT: Present: mucous membranes moist, dentition normal - Routine Respiratory Exam Present: CTA bilaterally. Absent: wheezes - Routine Cardiovascular Exam Present: RRR, S1, S2. Absent: murmur - Routine Abdominal Exam Present: soft, normoactive bowel sounds, non distended. Absent: tenderness - Routine Extremities Exam Present: normal capillary refill - Routine Skin Exam Present: dry, warm - Routine Neurological Exam Present: alert, oriented X3, CN II-XII intact - Routine Psychiatric Exam Present: normal affect Results IRU - Labs Labs: Have reviewed other providers notes, chart data and therapy notes. IRU A/P (1) S/P ORIF (open reduction internal fixation) fracture Current visit: Yes Status: Acute Some increased pain in the hip but despite this she is progressing with therapy. Able to ambulate 112 feet with moderate assistance with a front- wheeled walker. Discussed with patient her home situation. She states that she does have people who are willing to come in and assist her. We will have a team meeting tomorrow to discuss further exact date of dismissal if she continues the same degree of progress. (2) Acute blood loss anemia Current visit: Yes Status: Acute Received packed red blood cells while on acute care but at the present time her hemoglobin has remained stable without evidence of further bleeding. (3) Leukocytosis Qualifiers: Leukocytosis type: leukemoid reaction Qualified Code(s): D72.823 - Leukemoid reaction Current visit: Yes Status: Acute (4) Rheumatoid arthritis Qualifiers: Rheumatoid arthritis location: multiple sites Rheumatoid factor presence: unspecified presence Qualified Code(s): M06.9 - Rheumatoid arthritis, unspecified Current visit: No Status: Chronic DVT Prophylaxis: SCD's, Lovenox Resuscitation Status: Full Code - Course Hospital Course: Woodrow Darby MD: 01/07/18 11:41 Cooperative with therapy. Pain adequately controlled overall. Anemia stable at 9.1 g percent. 01/10/18 12:01 Rheumatoid arthritis pain noted. Hemoglobin stable. Progressing with therapy. - Interventions to Obtain Goals PT Treatment Plan: Balance/Proprioception, Functional Activities, Gait Training , Patient/Family Education, Therapeutic Exercise OT Treatment Plan: ADL (Basic Care), IADL, Pt./Family Education, UE Functional Training
[2018-01-10] MEDS: MULTI-VITAMIN + MINERAL TABLET PO SCH (12:39)
[2018-01-10] MEDS: NOZIN NASAL SWAB NAS SCH ×3 (13:58→21:10)
[2018-01-10] MEDS: DULOXETINE 60 MG CAPSULE PO SCH (21:10)
[2018-01-10] MEDS: SENNOSIDES 8.6 MG TABLET PO SCH (21:11)
[2018-01-11] MEDS: TRAMADOL 50 MG TABLET PO PRN ×2 (03:08→10:11)
[2018-01-11] MEDS: NOZIN NASAL SWAB NAS SCH ×4 (06:33→21:47)
[2018-01-11] MEDS: ENOXAPARIN 40 MG/0.4 ML INJECTION SQ SCH (08:47)
[2018-01-11] MEDS: ACETAMINOPHEN 325 MG TABLET PO SCH ×4 (08:47→20:33)
[2018-01-11] MEDS: GLUCOSAMINE/CHONDROITIN 500 MG/400 MG CAPSULE PO SCH ×3 (08:48→20:34)
[2018-01-11] MEDS: LISINOPRIL 10 MG TABLET PO SCH (08:48)
[2018-01-11] MEDS: MULTI-VITAMIN + MINERAL TABLET PO SCH (08:48)
[2018-01-11] MEDS: GABAPENTIN 300 MG CAPSULE PO SCH ×3 (08:49→20:33)
[2018-01-11] MEDS: CALCIUM 600 + VIT D 400 TABLET PO SCH (08:49)
[2018-01-11] MEDS: FOLIC ACID 1 MG TABLET PO SCH (08:49)
[2018-01-11] MEDS: TERIPARATIDE PO SCH ×2 (08:52→09:08)
[2018-01-11] MEDS: TERIPARATIDE 600 MCG SQ SCH (09:08)
--- NOTE | 2018-01-11 11:10 | XRay Report ---
Indication: hip pain and sensation of popping PROCEDURE: XR hip RT min 2V: Encounter: Initial Comparison: January 04, 2018 Findings: Right hip prosthesis is stable in appearance. No evidence of hardware loosening or failure. No acute fracture or dislocation noted. Impression: Unchanged appearance of the right hip prosthesis. .
--- NOTE | 2018-01-11 12:29 | Progress Note ---
Progress Note: Ms. Hein felt as though she had a "pop" in her hip. For this reason, therapy was held momentarily and a radiograph was obtained of the hip. This was reviewed and is negative. The prosthesis appears to be in the correct position. She feels fine at the present time. In addition she wanted another urinalysis done. She is concerned about occult UTI. However she had a UA which is negative just 2 days ago so we will hold off on doing another one at present. Patient was advised that the radiograph was unremarkable.
--- NOTE | 2018-01-11 13:47 | IRU Team Meeting ---
IRU Team Meeting - Nursing Bladder Assistive Devices Utilized:: Catheter Bladder Management Level of Assist: Minimal Assistance Bladder Frequency of Accidents: No accidents Bowel Assistive Devices Utilized:: Medication Bowel Management Level of Assist: Modified Independent Bowel Frequency of Accidents: No accidents Vital Signs: Vital Signs - 24 hr 01/10/18 16:00 01/10/18 19:33 01/11/18 08:09 Temperature 97.8 F 98.7 F 98.6 F Pulse Rate 89 91 92 Respiratory Rate 18 20 16 Blood Pressure 151/71 H 157/76 H 175/84 H Pulse Oximetry 99 96 93 01/11/18 10:11 Temperature Pulse Rate Respiratory Rate 22 Blood Pressure Pulse Oximetry Current Medications: Acetaminophen (Tylenol) 650 mg PO QID [facility] Last Admin: 01/11/18 13:18 Dose: 650 mg Bisacodyl (Dulcolax) 10 mg RECTALLY DAILY PRN PRN Reason: Constipation Calcium/Vitamin D (Caltrate + D) 1 tab PO DAILY [facility] Last Admin: 01/11/18 08:49 Dose: 1 tab Diphenhydramine HCl (Benadryl) 25 mg PO Q6H PRN PRN Reason: Itching Duloxetine HCl (Cymbalta) 60 mg PO HS [facility] Last Admin: 01/10/18 21:10 Dose: 60 mg Enoxaparin Sodium (Lovenox) 40 mg SQ DAILY [facility] Last Admin: 01/11/18 08:47 Dose: 40 mg Folic Acid (Folate) 2 mg PO DAILY [facility] Last Admin: 01/11/18 08:49 Dose: 2 mg Gabapentin (Neurontin) 300 mg PO TID [facility] Last Admin: 01/11/18 08:49 Dose: 300 mg Glucosamine/Chondroitin (Osteo Bi-Flex) 1 cap PO TID [facility] Last Admin: 01/11/18 08:48 Dose: 1 cap Isopropyl Alcohol (Nozin Nasal Swab) 1 each GÉNESIS 0600,1400,2200 [facility] Last Admin: 01/11/18 13:19 Dose: 1 each Lisinopril (Prinivil) 10 mg PO DAILY [facility] Last Admin: 01/11/18 08:48 Dose: 10 mg Magnesium Hydroxide (Mom) 30 ml PO DAILY PRN PRN Reason: Constipation Multivitamins/Minerals (Therapeutic - M) 1 tab PO DAILY [facility] Last Admin: 01/11/18 08:48 Dose: 1 tab Omeprazole (Prilosec) 20 mg PO DAILY PRN Last Admin: 01/09/18 08:55 Dose: 20 mg Ondansetron HCl (Zofran) 4 mg IVP Q4H PRN PRN Reason: Nausea &/or vomiting Oxybutynin Chloride (Ditropan) 5 mg PO TID [facility] Last Admin: 01/11/18 09:04 Dose: 5 mg Senna (Senna Lax) 17.2 mg PO HS [facility] Last Admin: 01/10/18 21:11 Dose: Not Given Senna (Senna Lax) 17.2 mg PO DAILY PRN PRN Reason: Constipation Last Admin: 01/10/18 08:56 Dose: 17.2 mg Sodium Chloride (Normal Saline) 500 ml IV PRN PRN Last Admin: 01/05/18 19:04 Dose: 500 ml Teriparatide Acetate (Forteo) 20 mcg SQ DAILY [facility] Last Admin: 01/11/18 09:08 Dose: 20 mcg Tramadol HCl (Ultram) 50 - 100 mg PO Q6H PRN PRN Reason: Pain Last Admin: 01/11/18 10:11 Dose: 50 mg Current Medical Issues: Underlying rheumatoid arthritis, acute on chronic anemia requiring blood transfusion on acute care. Comments: I certify that I personally led the interdisciplinary team meeting and agree with comments, barriers and goals indicated. Team meeting was held in the patient's room with the patient and the following family members present: Patient's son Ms. Hein felt a pop today with therapy. This was in the right hip area. However follow-up radiograph shows normal alignment. Orthopedics has been consulted to reevaluate the patient. She does not have discomfort and ongoing fashion. She does have pain from her arthritis involving the knees and ankles. Denies dysuria or frequency. - Physical Therapy Bed, Chair, Wheelchair Transfer Assist: Total Assistance Ambulation Ability: Maximal Assistance Ambulation Distance: 120 Wheelchair Propulsion Ability: Maximal Assistance Wheelchair Propulsion Distance: 90 Stair Climbing Ability: Maximal Assistance Number of Steps Climbed: 6 Car Transfer Ability: Patient Refuses Comments: Patient is ambulating with a front-wheeled walker 120 feet. She has declined car transfers. - Occupational Therapy Eating Ability: Independent Grooming Ability: Modified Independent Bathing Ability: Minimal Assistance Upper Body Dressing Ability: Minimal Assistance Lower Body Dressing Ability: Minimal Assistance Tub Transfer Assist: Contact Guard Assistance Toileting Assist: Stand By Assist/Supervision Toilet Transfer Assist: Stand By Assist/Supervision Comments: She is pleasant and cooperative with occupational therapy. She requires minimum assistance for dressing tasks. - Goals Physical Therapy Goals: 01/11/18. 1.) Ambulate 150 feet with front wheeled walker with modified independence. 2.) Transfers with modified independence. 3.) Perform home exercise program with independence. 4.) Increase weight- bearing on right lower extremity as tolerated. Occupational Therapy Goals: OT goals 01/11/18: 1.) Upper body and lower body dressing with modified independence. 2.) Toileting with modified independence. 3.) Microwaveable meal with modified independence. - Barriers to Discharge Barriers to Attaining Goals: Balance (she displaced reduced balance. Proprioceptive therapeutic exercises are offered.), Endurance (patient has reduced endurance. To address this, fear rest breaks and increased activity time are offered.), Other (patient displays reduced confidence. Verbal cues and encouragement are offered.) - Care Plan Anticipated Length of Stay (days): 3 Anticipated DC Destination: Home, Self Care, Home Health Service I have led this team conference and agree with the plan. Interventions/Goals: Patient is progressing with therapy. Occasional episodes of lack of confidence noted. She will be reassessed by orthopedics with regard to the right hip sound. However radiograph was negative. Anticipate safe and successful transfer to her home environment with home health in 3 days.
--- NOTE | 2018-01-11 14:01 | IRU Progress Note ---
- Subjective/Serverity of Illness Date: 01/11/18 Ms. Hein was ambulating with physical therapy this morning when she heard or felt a "pop" in her right hip. Uncertain if there is true pain or not. Nevertheless, therapy was held for a bit and a plain radiograph was obtained. This was unremarkable, demonstrating appropriate positioning of the prosthesis. She has no pain at the present time. She denies any chest pain or shortness of breath. Her appetite is reasonable. Continues to complain of discomfort regarding her rheumatoid arthritis with discomfort in the knees and the ankles. This is fairly stable at the present time. With regard to therapy she is transferring with total assistance. She is ambulate in 120 feet with maximum assistance. Bathing is with minimum assistance , upper and lower body dressing is with moderate assistance. The patient would like to go home this Wednesday. Exam Vital Signs: Temperature 98.6 F 01/11/18 08:09 Pulse Rate 92 01/11/18 08:09 Respiratory Rate 22 01/11/18 10:11 Blood Pressure 175/84 H 01/11/18 08:09 Pulse Oximetry 93 01/11/18 08:09 Height/Weight/BMI: Height 1.7 m Weight 71.3 kg Body Mass Index 24.6 - Constitutional Present: well nourished, well developed - Routine HEENT Exam Eye: Present: EOMI ENT: Present: mucous membranes moist, oropharynx clear - Routine Respiratory Exam Present: CTA bilaterally. Absent: wheezes - Routine Cardiovascular Exam Present: RRR, S1, S2. Absent: murmur - Routine Abdominal Exam Present: soft, normoactive bowel sounds, non distended. Absent: tenderness - Routine Extremities Exam Present: normal capillary refill Comments: Multiple joint deformities noted. - Routine Skin Exam Present: dry, warm - Routine Neurological Exam Present: alert, oriented X3, CN II-XII intact - Routine Psychiatric Exam Present: normal affect Results IRU - Labs Labs: Have reviewed chart data and other providers notes. IRU A/P (1) S/P ORIF (open reduction internal fixation) fracture Current visit: Yes Status: Acute Follow-up radiograph unremarkable. Orthopedics asked to reassess in view of the patient's report of a "pop" in the right hip. No pain noted. (2) Acute blood loss anemia Current visit: Yes Status: Acute Hemoglobin appears to be stable. (3) Leukocytosis Qualifiers: Leukocytosis type: leukemoid reaction Qualified Code(s): D72.823 - Leukemoid reaction Current visit: Yes Status: Resolved The patient's white blood cell count is now normal. (4) Rheumatoid arthritis Qualifiers: Rheumatoid arthritis location: multiple sites Rheumatoid factor presence: unspecified presence Qualified Code(s): M06.9 - Rheumatoid arthritis, unspecified Current visit: No Status: Chronic DVT Prophylaxis: SCD's, Lovenox Resuscitation Status: Full Code - Course Hospital Course: Woodrow Darby MD: 01/07/18 11:41 Cooperative with therapy. Pain adequately controlled overall. Anemia stable at 9.1 g percent. 01/10/18 12:01 Rheumatoid arthritis pain noted. Hemoglobin stable. Progressing with therapy. 01/11/18 14:02 Patient still has progress to be made. Cooperative with therapy. Repeat plain film of hip unremarkable. - Interventions to Obtain Goals PT Treatment Plan: Balance/Proprioception, Functional Activities, Gait Training , Patient/Family Education, Therapeutic Exercise OT Treatment Plan: ADL (Basic Care), IADL, Pt./Family Education, UE Functional Training Goals Progress/Modifications: Patient experienced a "pop" in the right hip today. She was reassessed by myself. Other than her baseline pain, as far as I can tell the pain was not worse with this. However we did help therapy briefly. Plain radiograph of the hip was obtained indicating appropriate position of the prosthesis. We have asked orthopedics to reassess. Otherwise, she does display some lack of confidence at times and is encouraged to fully participate with therapy. Anticipate safe transition to her home environment in about 3 days with home health assistance. She will likely need Lovenox at home.
--- NOTE | 2018-01-11 16:28 | Orthopedic Progress Note ---
Date: Date: 01/11/18 Time: 162 Subjective/Severity of Illness: Mrs Hein is s/p left hip christian arthroplasty for tx of a femoral neck fracture about 1 week ago. She is working with PT and has been having more pain. No fever or chills. Dressing is dry. Her pain is worse with activity and improved at rest. Orthopedic Exam Vital signs: Temperature 98.2 F 01/06/18 08:00 Pulse Rate 94 01/06/18 08:00 Respiratory Rate 20 01/06/18 08:00 Blood Pressure 165/98 H 01/06/18 08:00 Pulse Oximetry 92 01/06/18 08:00 - Constitutional General Appearance: Present: alert, orientated x3 - Respiratory Exam Present: non-labored - Cardiovascular Exam Present: pedal pulses intact - Extremities Exam Present: pulses intact, normal capillary refill - Dressing Dressing: dry, intact, no drainage - Neurological Exam Present: intact to light touch, no deficits - Psychiatric Exam Present: oriented - Labs Result Diagrams: 01/09/18 04:37 01/09/18 04:37 H & H 01/06/18 01/07/18 01/09/18 Range/Units 04:20 04:21 04:37 Hgb 9.3 L 9.1 L 9.3 L (12-16) GM/DL Hct 29.9 L 29.2 L 30.5 L (36-46) % Orthopedic Assessment and Plan (1) Displaced fracture of right femoral neck Status: Acute Assessment and Plan: S/P Right hemiarthroplasty Current anti-coagulation protocol with Lovenox for VTE prophylaxis. SCD's encouraged. PT/OT services to improve independent function. Xrays look stable. Cont PT / OT. Will monitor. Pt reassured about her current status. - Anticoagulation Therapy Anticoagulation: Lovenox 40 mg SQ Daily x 30 days from day of surgery Hospital Course Summary Disclaimer: The visit summary below is not to be considered part of the above Progress Note. Hospital Course: 01/06/18 Agree with admission to IRU for further strengthening and improvement in functional abilities. Start Lisinopril for elevated BP's. Pt reports she was on this in the past for her BP. Follow BMP. Hgb stable today. S/p blood transfusions 1U 01/04, 1U 01/05. Repeat CBC in am. SCD's/Lovenox for DVT ppx. On dismissal, orthopedics recommends 30 days of Lovenox from date of surgery. CM will arrange. Care to return to Dr. Baez on dismissal. 01/09/18 Overall, patient is doing well. Pain is well controlled. Continue therapies and pain control per Dr. Darby. Patient reports previous issue with UTI while in rehab a year ago and requests UA. Denies symptoms. Afebrile. WBC stable. Will obtain UA for evaluation and baseline. Blood pressure remains elevated, though improved since initiation of lisinopril on 01/04/18. Continue to monitor closely. May need additional treatment. Hemoglobin remains stable. Monitor closely. S/p blood transfusions 1U 01/04, 1U 01/05.
[2018-01-11] MEDS: DULOXETINE 60 MG CAPSULE PO SCH (20:33)
[2018-01-11] MEDS: SENNOSIDES 8.6 MG TABLET PO SCH (20:35)
[2018-01-12] MEDS: TRAMADOL 50 MG TABLET PO PRN ×2 (05:32→15:28)
[2018-01-12] MEDS: NOZIN NASAL SWAB NAS SCH ×4 (05:32→22:10)
[2018-01-12] MEDS: CALCIUM 600 + VIT D 400 TABLET PO SCH (09:08)
[2018-01-12] MEDS: ACETAMINOPHEN 325 MG TABLET PO SCH ×4 (09:09→20:52)
[2018-01-12] MEDS: FOLIC ACID 1 MG TABLET PO SCH (09:09)
[2018-01-12] MEDS: MULTI-VITAMIN + MINERAL TABLET PO SCH (09:09)
[2018-01-12] MEDS: ENOXAPARIN 40 MG/0.4 ML INJECTION SQ SCH (09:10)
[2018-01-12] MEDS: GLUCOSAMINE/CHONDROITIN 500 MG/400 MG CAPSULE PO SCH ×3 (09:10→20:53)
[2018-01-12] MEDS: LISINOPRIL 10 MG TABLET PO SCH (09:10)
[2018-01-12] MEDS: GABAPENTIN 300 MG CAPSULE PO SCH ×3 (09:10→20:53)
[2018-01-12] MEDS: TERIPARATIDE 600 MCG SQ SCH (09:16)
[2018-01-12] MEDS: OMEPRAZOLE 20 MG CAPSULE PO PRN (20:51)
[2018-01-12] MEDS: SENNOSIDES 8.6 MG TABLET PO SCH (20:52)
[2018-01-12] MEDS: DULOXETINE 60 MG CAPSULE PO SCH (20:53)
[2018-01-13] MEDS: NOZIN NASAL SWAB NAS SCH ×4 (06:17→21:50)
[2018-01-13] MEDS: TRAMADOL 50 MG TABLET PO PRN (06:17)
[2018-01-13] MEDS: GLUCOSAMINE/CHONDROITIN 500 MG/400 MG CAPSULE PO SCH ×3 (08:39→21:50)
[2018-01-13] MEDS: LISINOPRIL 10 MG TABLET PO SCH (08:39)
[2018-01-13] MEDS: CALCIUM 600 + VIT D 400 TABLET PO SCH (08:39)
[2018-01-13] MEDS: GABAPENTIN 300 MG CAPSULE PO SCH ×3 (08:39→21:50)
[2018-01-13] MEDS: FOLIC ACID 1 MG TABLET PO SCH (08:40)
[2018-01-13] MEDS: ACETAMINOPHEN 325 MG TABLET PO SCH ×4 (08:40→21:49)
[2018-01-13] MEDS: MULTI-VITAMIN + MINERAL TABLET PO SCH (08:42)
[2018-01-13] MEDS: ENOXAPARIN 40 MG/0.4 ML INJECTION SQ SCH (08:53)
[2018-01-13] MEDS: TERIPARATIDE 600 MCG SQ SCH (08:54)
--- NOTE | 2018-01-13 11:19 | IRU Progress Note ---
- Subjective/Serverity of Illness Date: 01/13/18 Appreciate orthopedics following patient. She continues to complain of the "popping" sensation but it is quite manageable. Radiographs have been reviewed and are stable. Pain management continues to be somewhat of a challenge in view of her underlying rheumatoid arthritis. Patient is standby assist for transfers and ambulation 60 feet with a front- wheeled walker. Her vital signs appear to be stable. Exam Vital Signs: Temperature 97.1 F 01/13/18 08:00 Pulse Rate 88 01/13/18 08:00 Respiratory Rate 16 01/13/18 08:00 Blood Pressure 158/80 H 01/13/18 08:00 Pulse Oximetry 95 01/13/18 08:00 Height/Weight/BMI: Height 1.7 m Weight 72.1 kg Body Mass Index 24.6 - Constitutional Present: no acute distress, well nourished, well developed, cooperative Comments: anxious - Routine HEENT Exam Eye: Present: EOMI ENT: Present: mucous membranes moist, dentition normal - Routine Respiratory Exam Present: CTA bilaterally. Absent: wheezes - Routine Cardiovascular Exam Present: RRR, S1, S2. Absent: murmur - Routine Abdominal Exam Present: soft, normoactive bowel sounds, non distended. Absent: tenderness - Routine Extremities Exam Present: normal capillary refill - Routine Skin Exam Present: dry, warm - Routine Neurological Exam Present: alert, oriented X3, CN II-XII intact - Routine Psychiatric Exam Present: normal affect, anxious IRU A/P (1) S/P ORIF (open reduction internal fixation) fracture Current visit: Yes Status: Acute Appreciate orthopedic input. Patient appears to be stable from an orthopedic standpoint. Continues to cooperate with therapy and making progress. (2) Acute blood loss anemia Current visit: Yes Status: Acute Hemoglobin stable at 9.3 g percent. (3) Leukocytosis Qualifiers: Leukocytosis type: leukemoid reaction Qualified Code(s): D72.823 - Leukemoid reaction Current visit: Yes Status: Resolved (4) Rheumatoid arthritis Qualifiers: Rheumatoid arthritis location: multiple sites Rheumatoid factor presence: unspecified presence Qualified Code(s): M06.9 - Rheumatoid arthritis, unspecified Current visit: No Status: Chronic DVT Prophylaxis: SCD's, Lovenox Resuscitation Status: Full Code - Course Hospital Course: Woodrow Darby MD: 01/07/18 11:41 Cooperative with therapy. Pain adequately controlled overall. Anemia stable at 9.1 g percent. 01/10/18 12:01 Rheumatoid arthritis pain noted. Hemoglobin stable. Progressing with therapy. 01/11/18 14:02 Patient still has progress to be made. Cooperative with therapy. Repeat plain film of hip unremarkable. 01/13/18 11:19 Doing well with therapy. Appreciate orthopedics input. Hemoglobin stable. - Interventions to Obtain Goals PT Treatment Plan: Balance/Proprioception, Functional Activities, Gait Training , Patient/Family Education, Therapeutic Exercise OT Treatment Plan: ADL (Basic Care), IADL, Pt./Family Education, UE Functional Training
--- NOTE | 2018-01-13 15:58 | Progress Note ---
- Date 01/13/18 Subjective: Mrs Hein is seen this afternoon in her room. She is visiting with some friends who brought her dog to visit. She reports that she is feeling good and is hopeful to get to go home in the near future. Denies abd pain, dyspnea or GI complaints. Mild post-op pain that is well controlled. Objective Vital signs: Temperature 98.4 F 01/13/18 15:22 Pulse Rate 86 01/13/18 15:22 Respiratory Rate 16 01/13/18 15:22 Blood Pressure 150/73 H 01/13/18 15:22 Pulse Oximetry 92 01/13/18 15:22 Height/Weight/BMI: Height 1.7 m Weight 72.1 kg Body Mass Index 24.6 - Constitutional Present: no acute distress, well nourished, well developed - Routine HEENT Exam Eye: Present: EOMI ENT: Present: mucous membranes moist, dentition normal - Routine Respiratory Exam Present: CTA bilaterally. Absent: wheezes - Routine Cardiovascular Exam Present: RRR, S1, S2. Absent: murmur - Routine Abdominal Exam Present: soft, normoactive bowel sounds, non distended. Absent: tenderness - Routine Extremities Exam Present: normal capillary refill - Routine Skin Exam Present: intact, dry, warm - Routine Neurological Exam Present: alert, oriented X3, CN II-XII intact - Routine Lymphatic Exam Lymphatic: Absent: adenopathy - Routine Psychiatric Exam Present: cooperative Results - Labs CBC & Chem 7: 01/09/18 04:37 01/09/18 04:37 Assessment and Plan Assessment and Plan: Assessment S/p R hip hemiarthroplasty for R femoral neck following a fall (Dr Lopez 01/04/18 ) Rheumatoid arthritis - on methotrexate Osteoporosis Leukocytosis- present on acute and IRU admission Sepsis on acute admission to acute on 01/04/18 - resolved Anemia - present on acute and IRU admission. (S/p blood transfusions 1U 01/04, 1U 01/05) Recurrent UTI - completed tx for recent UTI 01/05/18 HTN GERD Chronic NSAID use Overactive bladder Plan Doing well with therapy and gaining strength Pain is well controlled on Ultram Hopeful for discharge in the near future 01/13/2018 -7:45 PM-I examined the patient independently. I reviewed this chart , the patient history, and the [employer]'s/PA's documented findings as above. We discussed and formulated the assessment and plan as above with the additions below.-Dr. Grover The patient was seen this evening in her room. She states that she was having a lot of rheumatoid arthritis type pain but that is improving. She is having pain in her hip when she does therapy. She is eating and drinking well. She states she is having urinary frequency and incontinence and wondered if she was on her usual dose of oxybutynin. I did look up her dose, and she is on 5 mg 3 times a day which was her home dose. She denies any dysuria, but states that frequency and incontinence is her usual symptoms with a UTI. She had a urinalysis 3 days ago which was normal but she continues to have problems with urination. On exam she is alert and in no acute distress. Chest is clear to auscultation. Cardiovascular reveals a regular rate and rhythm. Abdomen is soft and nontender. Extremities reveal no edema. She does have significant joint deformity from rheumatoid arthritis in her hands Impression and plan Urinary frequency and incontinence-repeat UA Overactive bladder-continue oxybutynin Rheumatoid arthritis-methotrexate is on hold postoperatively DVT Prophylaxis: SCD's, Lovenox Resuscitation Status: Full Code - Physician Narrative Narrative: Date: 01/13/18 Time: 1553 Hospital Course Summary Disclaimer: The visit summary below is not to be considered part of the above Progress Note. Hospital Course: 01/06/18 Agree with admission to IRU for further strengthening and improvement in functional abilities. Start Lisinopril for elevated BP's. Pt reports she was on this in the past for her BP. Follow BMP. Hgb stable today. S/p blood transfusions 1U 01/04, 1U 01/05. Repeat CBC in am. SCD's/Lovenox for DVT ppx. On dismissal, orthopedics recommends 30 days of Lovenox from date of surgery. CM will arrange. Care to return to Dr. Baez on dismissal. 01/09/18 Overall, patient is doing well. Pain is well controlled. Continue therapies and pain control per Dr. Darby. Patient reports previous issue with UTI while in rehab a year ago and requests UA. Denies symptoms. Afebrile. WBC stable. Will obtain UA for evaluation and baseline. Blood pressure remains elevated, though improved since initiation of lisinopril on 01/04/18. Continue to monitor closely. May need additional treatment. Hemoglobin remains stable. Monitor closely. S/p blood transfusions 1U 01/04, 1U 01/05. 01/13/18 Doing well with therapy and gaining strength Pain is well controlled on Ultram Hopeful for discharge in the near future
[2018-01-13] MEDS: SENNOSIDES 8.6 MG TABLET PO SCH (21:50)
[2018-01-13] MEDS: DULOXETINE 60 MG CAPSULE PO SCH (21:51)
[2018-01-14] MEDS: TRAMADOL 50 MG TABLET PO PRN (03:04)
[2018-01-14] MEDS: NOZIN NASAL SWAB NAS SCH (06:03)
[2018-01-14 08:27] VITALS: BP 168/77; PULSE 85; RESP 14; TEMP 98.2; O2SAT 96
[2018-01-14] MEDS: ACETAMINOPHEN 325 MG TABLET PO SCH (09:08)
[2018-01-14] MEDS: ENOXAPARIN 40 MG/0.4 ML INJECTION SQ SCH (09:09)
[2018-01-14] MEDS: LISINOPRIL 10 MG TABLET PO SCH (09:09)
[2018-01-14] MEDS: MULTI-VITAMIN + MINERAL TABLET PO SCH (09:09)
[2018-01-14] MEDS: GLUCOSAMINE/CHONDROITIN 500 MG/400 MG CAPSULE PO SCH (09:09)
[2018-01-14] MEDS: CALCIUM 600 + VIT D 400 TABLET PO SCH (09:09)
[2018-01-14] MEDS: FOLIC ACID 1 MG TABLET PO SCH (09:09)
[2018-01-14] MEDS: GABAPENTIN 300 MG CAPSULE PO SCH (09:09)
[2018-01-14] MEDS: TERIPARATIDE 600 MCG SQ SCH (09:10)
--- NOTE | 2018-01-14 11:45 | IRU Progress Note ---
- Subjective/Serverity of Illness Date: 01/14/18 Ms. Hein states that she feels comfortable going home. She feels as though her pain management has been adequate. From a functional standpoint she is stable. She reports that her bowels are moving. Her appetite is good. Exam Vital Signs: Temperature 98.2 F 01/14/18 08:26 Pulse Rate 85 01/14/18 08:26 Respiratory Rate 14 01/14/18 08:26 Blood Pressure 168/77 H 01/14/18 08:26 Pulse Oximetry 96 01/14/18 08:26 Height/Weight/BMI: Height 1.7 m Weight 72.1 kg Body Mass Index 24.6 - Constitutional Present: no acute distress, well nourished, well developed, cooperative - Routine HEENT Exam Eye: Present: EOMI ENT: Present: mucous membranes moist, dentition normal - Routine Respiratory Exam Present: CTA bilaterally. Absent: wheezes - Routine Cardiovascular Exam Present: RRR, S1, S2. Absent: murmur - Routine Abdominal Exam Present: soft, normoactive bowel sounds, non distended. Absent: tenderness - Routine Extremities Exam Present: normal capillary refill Comments: Inspection of right hip area was performed. No evidence of surrounding erythema. Dressing remains intact and dry. - Routine Skin Exam Present: dry, warm - Routine Neurological Exam Present: alert, oriented X3, CN II-XII intact - Routine Psychiatric Exam Present: normal affect IRU A/P (1) S/P ORIF (open reduction internal fixation) fracture Current visit: Yes Status: Acute Patient is stable for dismissal today. 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 (2) Acute blood loss anemia Current visit: Yes Status: Acute (3) Leukocytosis Qualifiers: Leukocytosis type: leukemoid reaction Qualified Code(s): D72.823 - Leukemoid reaction Current visit: Yes Status: Resolved (4) Rheumatoid arthritis Qualifiers: Rheumatoid arthritis location: multiple sites Rheumatoid factor presence: unspecified presence Qualified Code(s): M06.9 - Rheumatoid arthritis, unspecified Current visit: No Status: Chronic DVT Prophylaxis: SCD's, Lovenox Resuscitation Status: Full Code - Course Hospital Course: Woodrow Darby MD: 01/07/18 11:41 Cooperative with therapy. Pain adequately controlled overall. Anemia stable at 9.1 g percent. 01/10/18 12:01 Rheumatoid arthritis pain noted. Hemoglobin stable. Progressing with therapy. 01/11/18 14:02 Patient still has progress to be made. Cooperative with therapy. Repeat plain film of hip unremarkable. 01/13/18 11:19 Doing well with therapy. Appreciate orthopedics input. Hemoglobin stable. 01/14/18 11:52 Patient is stable for dismissal. - Interventions to Obtain Goals PT Treatment Plan: Balance/Proprioception, Functional Activities, Gait Training , Patient/Family Education, Therapeutic Exercise OT Treatment Plan: ADL (Basic Care), IADL, Pt./Family Education, UE Functional Training
--- NOTE | 2018-01-14 13:51 | Letter to Referring Physician ---
Dear Dr. Baez, This is a brief note to bring you up-to-date on the status of Lisa Hein and her stay on the acute inpatient rehabilitation unit at [facility]. As you are likely aware, this patient was admitted to [facility] on 01/03/18 for repair of right hip fracture. She was taken to surgery by Dr. Lopez for repair of the hip. She did require 2 units of packed red blood cells due to acute blood loss anemia while on acute care. She also had a urinary tract infection at the time of admission which was treated with antibiotics. The patient was stabilized while on the acute level and admitted to inpatient rehabilitation unit at [facility] on January 05, 2018. While on inpatient rehabilitation, this patient was seen by occupational therapy and physical therapy and improved overall in their functional ability. We also monitored and managed the patient's anemia and RA pain while on Acute Rehab. Please see a copy of the history and physical examination as well as discharge summary faxed separately for further details. Please note that we gave her a prescription for tramadol 50 mg tablets #40 at the time of dismissal. She will follow-up with you as well as Dr. Lopez. She is being dismissed today from acute inpatient rehabilitation at [facility] to return to her home with home health assistance. Thank you for allowing us to be involved in this nice patient's care. Please contact me directly should you have any questions regarding their stay on the inpatient rehabilitation unit. Sincerely, Woodrow Darby M.D.
--- NOTE | 2018-01-14 16:59 | Discharge Summary ---
Discharge Information Date of admission: 01/05/18 16:10 Anticipated date of discharge: 01/14/18 Attending Physician: Woodrow Darby MD Primary care physician: Librado Baez Consults: 01/05/18 16:18 Case Management Consult [CONS] Routine Reason For Exam: Discharge Planning DME-Walker [CONS] Routine Height: 1.7 m Weight: 71.3 kg IRU Screening [Inpatient Rehab Screening] [CONS] Routine Physician Consult [CONS] Routine Consulting Provider: Dereje Lopez Reason For Exam: right hip fx Ordering Provider has Notified Analysis Internship: Yes Total Joint Outpatient Therapy [CONS] Routine Comment: Remove dressing in 2 weeks 01/05/18 17:11 Physician Consult [CONS] Routine Consulting Provider: Warren Lazaro Reason For Exam: medical management Ordering Provider has Notified Analysis Internship: No - Discharge Diagnosis (1) S/P ORIF (open reduction internal fixation) fracture Status: Acute (2) Acute blood loss anemia Status: Acute (3) Leukocytosis Status: Resolved (4) Rheumatoid arthritis Status: Chronic 1. Status post open reduction internal fixation of right hip fracture 2. Acute blood loss anemia 3. Leukocytosis-resolved 4. Rheumatoid arthritis - Laboratory Labs: 01/09/18 04:37 01/09/18 04:37 History of Present Illness HPI: Ms. Hein is a 67-year-old female who was walking her dog and dropped the leash. When she tried to step on it, she lost her balance resulting in a fall on her right side. She presented to the emergency department at [facility] on 01/03/18 where she was admitted with an acute transverse fracture across the right femoral neck. Dr. Lopez saw her in consultation and took her to surgery on 01/04/2018 for a right hip hemiarthroplasty. The patient's postop white count was 28,000 and she did have history of recent urinary tract infection. She was felt to be a good candidate for inpatient rehabilitation because of multiple functional deficits sustained due to the fall and fracture. She has history of underlying rheumatoid arthritis with joint deformities. She also experienced acute blood loss anemia requiring 2 units of packed red blood cells on acute care. She was transferred to acute inpatient rehabilitation on 01/05/2018. Hospital Course This is a general summary of the patient's hospital course. For more details refer to the complete medical record. After she underwent ORIF of right hip, she was transferred to acute inpatient rehabilitation for a multidisciplinary approach to her recovery. Her hemoglobin was monitored carefully in view of the previous requirement for 2 units of packed red blood cells while on acute care. Her hemoglobin remained stable at 9.3. In addition her previously noted leukocytosis was monitored and this resolved to normal. The patient was followed by the hospitalist service and by Dr. Darby. She was also seen by the orthopedic service. She was able to eat and drink adequately. Pain management was felt to be adequate with the use of tramadol. Inspection of the area around the wound was performed on several occasions and failed to reveal any evidence of infection. She did complain of a "popping" sensation. She was seen by orthopedics. Repeat radiograph showed stable position of the prosthesis. The following levels of functional competence are to be considered preliminary information. The reader is encouraged to refer to actual therapy notes and reports for specific details. The patient was followed by physical therapy while on acute inpatient rehabilitation. At the conclusion of her stay, the following functional competencies were identified: She is able to transfer with standby assistance. Toilet transfers were with standby assistance as were car transfers. She was able to ambulate up to 120 feet with a front-wheeled walker safely. The patient was followed by occupational therapy while on acute inpatient rehabilitation. At the conclusion of her stay, the following functional competencies were identified: She is able to bathe with standby assistance as well as dress her lower body. Upper body dressing was with modified independent function. She was able to transfer with modified independence. At the time of dismissal she was felt to be stable. Home health was arranged to continue working with her in her new environment at home. She was given a prescription for tramadol 50 mg #40 with no refills. She will follow-up with Dr. Lopez and Dr. Baez. Hospital course: 01/06/18 Agree with admission to IRU for further strengthening and improvement in functional abilities. Start Lisinopril for elevated BP's. Pt reports she was on this in the past for her BP. Follow BMP. Hgb stable today. S/p blood transfusions 1U 01/04, 1U 01/05. Repeat CBC in am. SCD's/Lovenox for DVT ppx. On dismissal, orthopedics recommends 30 days of Lovenox from date of surgery. will arrange. Care to return to Dr. Baez on dismissal. 01/09/18 Overall, patient is doing well. Pain is well controlled. Continue therapies and pain control per Dr. Darby. Patient reports previous issue with UTI while in rehab a year ago and requests UA. Denies symptoms. Afebrile. WBC stable. Will obtain UA for evaluation and baseline. Blood pressure remains elevated, though improved since initiation of lisinopril on 01/04/18. Continue to monitor closely. May need additional treatment. Hemoglobin remains stable. Monitor closely. S/p blood transfusions 1U 01/04, 1U 01/05. 01/13/18 Doing well with therapy and gaining strength Pain is well controlled on Ultram Hopeful for discharge in the near future Time spent with patient: greater than 35 minutes Resuscitation Status: Full Code Discharge Plan - Med Rec/Dispo Referrals/Follow Up: Librado Baez [Primary Care Provider] - (Dr. Marci Baez on 01/20/18 at 1:40 pm for Hosp. follow-up. . [facility] [address] [address]) Sloan Brenner PA [Physician Electronic Design Engineer] - 01/26/18 10:15 am ([facility] [address] [place] [address] Dr. Grullon [address] [place] [address] ) Samantha Instructions: Fall Prevention for Older Adults (GEN) Prescriptions: New Lisinopril [Prinivil] 10 mg PO DAILY #30 tab Sennosides [Senna Lax] 17.2 mg PO DAILY PRN tab PRN Reason: Constipation Aspirin Chewable [ASA] 81 mg PO BID 30 Days #60 tab.chew Tramadol [Ultram] 50 - 100 mg PO Q6H PRN #40 tab PRN Reason: Pain Continue Calcium Carb/D3/Magnesium/Zinc [Declan Mag Zinc-D3 Tablet] 1 tab PO DAILY Folic Acid [Folate] 2 tab PO DAILY Naproxen 1 tab PO Q12H Gabapentin 300 mg PO TID Forteo 0.08 ml SQ DAILY Clotrimazole Merlin [Mycelex Merlin] 10 mg PO QID Duloxetine HCl [Cymbalta] 1 cap PO DAILY Pantoprazole Sodium [Protonix] 1 tab PO ACB Oxybutynin Chloride 5 mg PO TID Mv-Min/Iron/Folic/Calcium/Vitk [Women's Multivitamin Tablet] 1 each PO DAILY Methotrexate Inj [Methotrexate] 0.8 ml SQ WE Cartilage/Collagen/Bor/Hyalur [Joint Health Tablet] 1 each PO TID Discontinued Sulfamethox/Tmp [Bactrim Ds] 1 tab PO BID - Disposition [facility] - Dismissal Complete Discharge Instructions are:: Complete
== END 2018-01-14 12:30 | disposition home health service (06) | DRG 560 ==
PROVIDERS: ADMIT Internal Medicine; ATTEND Internal Medicine